=== PATIENT | male | born 1965 | race Caucasian/White ===

== ENCOUNTER 2018-02-02 09:08 | Outpatient (CLI) | payer MEDICARE, MEDICAID, SELFPAY ==
[2018-02-02 11:14] LABS: Cholesterol 194 mg/dL (50-200); HDL Cholesterol 29 mg/dL (40-60); LDL CHOLESTEROL 136 mg/dL (<100); Triglyceride 165 mg/dL (30-150)
== END 2018-02-02 09:28 ==
PROVIDERS: PCP Family Medicine; Visit Provider Family Medicine
DX: E11.65 Type 2 diabetes mellitus with hyperglycemia (principal); E78.5 Hyperlipidemia, unspecified
CPT/HCPCS: 36415; 80061; 83721; 83036

== ENCOUNTER 2019-04-18 11:43 | Outpatient (CLI) | payer MEDICARE, SELFPAY ==
[2019-04-18] MEDS: Omnipaque 350 MG/ML 50 ML BTL IJ (12:59)
[2019-04-18] MEDS: Breeza Beverage 473 ML BTL PO ×2 (13:03→13:04)
--- NOTE | 2019-04-18 14:16 | DI.CT_ITS ---
EXAM: CT ABDOMEN PELVIS W CLINICAL HISTORY: r/o diverticulitis LLQ PAIN R10.32 TECHNIQUE: Imaging Protocol: Axial computed tomography images with coronal and sagittal reformatted images were created and reviewed CONTRAST MATERIAL: Intravenous: Omnipaque 350 Contrast volume:100 mL contrast route:IV - Oral: Yes COMPARISON: LEFT HIP COMPLETE POST REDUC from 08/15/2017 FINDINGS: ABDOMEN: Lung Bases: Normal where visualized. Liver: There is hepatic steatosis. The portal, superior mesenteric and splenic veins are patent. No measurable mass. Gallbladder and biliary tract: No radiodense calculus or dilation. Pancreas: Normal density, no abnormal calcifications or inflammatory process. Spleen: Normal. Kidneys: Normal size, contour and axis. No radiodense stones or obstructive uropathy. There is a 0.8 centimeter exophytic hypodense lesion at the posterior aspect of the right kidney. It does not meet the criteria for a simple cyst. Sonography is recommended for further evaluation. Adrenal glands: No masses seen. Abdominal Aorta: Abdominal portion non-dilated. Atherosclerosis. PELVIS: Bladder: Urinary bladder is not distended. There is artifact from the patient's left hip prosthesis which obscures portions of the pelvis. Bowel: No obstruction or bowel wall thickening. Normal appendix is visualized. No evidence of acute diverticulitis. Peritoneal cavity: No ascites, collection or mesenteric inflammatory response. Bones: Post-traumatic and postsurgical changes are seen in the left hemipelvis. This includes a left total hip replacement. Degenerative changes are seen in the spine. Reproductive organs: Within normal limits. Lymph nodes: Unremarkable. Impression: 1. No evidence of an acute abdominal or pelvic process. No evidence of acute diverticulitis. 2. Exophytic hypodense lesion at the posterior aspect of the right kidney. It does not meet the crit eria for simple cyst. Ultrasound should be considered for further evaluation. 3. Hepatic steatosis. DATA REPOSITORY: All CT scans at this facility are submitted to the National Radiology Data Registry (NRDR) Dose Index Registry (DIR) with the [employer] (ACR). RADIATION OPTIMIZATION: All CT scans at this facility use at least one of these dose optimization te chniques: automated exposure control; mA and/or kV adjustment per patient size (includes targeted exa ms where dose is matched to clinical indication); or iterative reconstruction.
[2019-04-18] MEDS: Omnipaque 350 MG/ML 100 ML BTL IJ (14:28)
== END 2019-04-18 12:03 ==
PROVIDERS: PCP Family Medicine; Visit Provider Family Medicine
DX: R10.32 Left lower quadrant pain (principal); K76.0 Fatty (change of) liver, not elsewhere classified; N28.9 Disorder of kidney and ureter, unspecified
CPT/HCPCS: 74177; 82565; J3490; Q9967

== ENCOUNTER 2019-09-26 10:12 | Outpatient (CLI) | payer MEDICARE, SELFPAY ==
[2019-09-27 17:20] LABS: COVID-19 RT-PCR Result NEGATIVE (Negative)
== END 2019-09-26 10:32 ==
PROVIDERS: PCP Family Medicine; Visit Provider Family Medicine
DX: Z03.818 Encounter for observation for suspected exposure to other biological agents ruled out (principal); R06.02 Shortness of breath
CPT/HCPCS: U0003

== ENCOUNTER → 2019-10-25 03:03 | Outpatient (CLI) | payer MEDICARE, SELFPAY ==
--- NOTE | 2019-10-25 09:00 | DI.US_ITS ---
EXAM: US RENAL CLINICAL HISTORY: reassess lesion seen on CT, RT KIDNEY MASS, N28.89. TECHNIQUE: Pham scale, color and spectral Doppler were used. COMPARISON: CT CT ABDOMEN PELVIS W from 04/18/2019 FINDINGS: Renal size in cm: Right: 11.4 left: 10.8 Echogenicity: Normal Hydronephrosis: No Cyst or mass: No Nephrolithiasis: No Other findings: Hepatic steatosis. Bladder:Not well evaluated due to low prevoid volume. Prevoid vol: 20 cc Postvoid vol:Not obtained Prostate not visualized. IMPRESSION: Limited exam secondary to the patient's body habitus. No cyst or mass is visible. The lesion was n ot well characterized on the previous CT due to small the small size. MRI could be considered for f urther evaluation. DATA REPOSITORY:
== END ==
PROVIDERS: PCP Family Medicine; Visit Provider Family Medicine
DX: N28.89 Other specified disorders of kidney and ureter (principal); K76.0 Fatty (change of) liver, not elsewhere classified
CPT/HCPCS: 76770

== ENCOUNTER 2020-01-29 10:58 | Outpatient (CLI) | payer MEDICARE, SELFPAY ==
[2020-01-29 12:52] LABS: CREATININE 1.01 mg/dL (0.70-1.30); Calculated LDL 145 mg/dL (<100); Cholesterol 214 mg/dL (<200); HDL Cholesterol 29 mg/dL (40-60); Potassium 3.8 mmol/L (3.5-5.1); Triglyceride 200 mg/dL (<150)
[2020-01-29 12:59] LABS: Hemoglobin A1C 8.5 % (<5.7)
== END 2020-01-29 11:18 ==
PROVIDERS: PCP Family Medicine; Visit Provider Family Medicine
DX: I10 Essential (primary) hypertension (principal); E78.5 Hyperlipidemia, unspecified; R73.9 Hyperglycemia, unspecified
CPT/HCPCS: 36415; 80061; 82565; 83036; 84132

== ENCOUNTER → 2020-05-22 01:33 | Outpatient (CLI) | payer MEDICARE, SELFPAY ==
--- NOTE | 2020-05-22 07:30 | DI.RAD_ITS ---
EXAM: XR HIP LT COMPLETE AP PELVIS CLINICAL HISTORY: pain in left hip,PROSTHETIC HIP PLACED 2005,M25.552 TECHNIQUE: COMPARISON: CR LEFT HIP COMPLETE POST REDUC from 08/15/2017 FINDINGS: Three views were obtained. Previously described hip prosthesis with plate and screw fixation of the acetabular region again noted, very prominent heterotopic bone formation again noted, grossly unchang ed from August 2017. There is lucency surrounded the proximal half of the femoral component of the hi p prosthesis, also stable since 2018. No gross loosening of the distal portion of the femoral compon ent seen at this time. IMPRESSION: Stable appearance of left hip prosthesis, left pelvic fixation, and prominent heterotopic bone format ion since prior examination of 2017. RADIATION DOSE DELIVERED: Total DLP
== END ==
PROVIDERS: PCP Family Medicine; Visit Provider Family Medicine
DX: M25.552 Pain in left hip (principal); Z96.642 Presence of left artificial hip joint
CPT/HCPCS: 73502

== ENCOUNTER 2021-02-27 12:19 | Inpatient (IN) | payer MEDICARE, SELFPAY ==
[2021-02-27] VITALS (16 sets, daily range): BP systolic 152–189; BP diastolic 58–92; PULSE 73–89; RESP 18–26; TEMP 36.5–37; O2SAT 92–96
--- NOTE | 2021-02-27 | DI.MRI_ITS ---
Exam(s) MR ANGIO NECK WO EXAM: MR ANGIO NECK WO CLINICAL HISTORY: facial droop, dysarthria TECHNIQUE: 2D and 3D [id number] studies was performed. COMPARISON: No exams were available for comparison FINDINGS: There is no evidence of occlusion or dissection of the carotid or vertebral arteries. There is mild narrowing at the proximal internal carotid arteries bilaterally without significant rahul nosis. IMPRESSION: No significant stenosis. No evidence of dissection. DATA REPOSITORY:
--- NOTE | 2021-02-27 12:15 | RT.EKG_ITS ---
APPROVED REPORT Exam: Resting ECG Reason for Exam: cva Patient Location: E HR:89 bpm ECG Measurements Heart Rate 89 AXIS AR 168 P 77 QRSd 84 QRS 68 QT 353 T 55 QTc 431 Conclusion Sinus rhythm. Anteroseptal Q >35mS, T neg, V1-V2
--- NOTE | 2021-02-27 12:30 | DI.RAD_ITS ---
Exam(s) XR CHEST 2V PA LATERAL EXAM: XR CHEST 2V PA LATERAL CLINICAL HISTORY: Slurred speech TECHNIQUE: 2D digital imaging was performed of the chest. Two images were obtained. PA and lateral views were obtained. COMPARISON: No exams were available for comparison FINDINGS: MEDIASTINUM: Normal. HEART: Normal. PULMONARY VASCULATURE: Normal. LUNGS: Clear. PLEURAL SPACE: No pleural effusion or pneumothorax. BONE:Within normal limits for the patient's age. OTHER FINDINGS:Normal. IMPRESSION: No acute pulmonary findings. DATA REPOSITORY: RADIATION DOSE DELIVERED:
--- NOTE | 2021-02-27 12:41 | W.ED.GENAD ---
Discharge Plan Disposition Patient Disposition: [facility] INPATIENT Condition: Stable Discharge Details Clinical Impression: Acute CVA (cerebrovascular accident) Primary Care Provider: Bradley Carmichael ED Provider: Kenneth Guerra Home Meds and New Rx's Prescriptions: No Action naproxen 500 mg tablet 500 mg PO Q12H PRN Qty: 60 RF: 2 lisinopril-hydrochlorothiazide 20-12.5 mg tablet 1 tab PO DAILY Qty: 90 RF: 3 colchicine 0.6 mg tablet 0.6 mg PO BID Qty: 30 RF: 0 lisinopril 20 mg tablet 20 mg PO DAILY Qty: 90 RF: 3 acetaminophen 325 MG tablet 325 mg PO Q6H PRN RF: 0 (DME) lancets [QualtréTouch Delica Lancets] 33 gauge misc See Rx Instructions .ROUTE .MEDSUPPLY Qty: 100 RF: 3 (DME) blood-glucose meter [IntelligentMuch Verio Flex meter] Misc See Rx Instructions .ROUTE .MEDSUPPLY Qty: 1 RF: 0 (DME) OneTouch Verio test strips Strip See Rx Instructions .ROUTE .MEDSUPPLY Qty: 100 RF: 3 omeprazole 40 mg capsule,delayed release(DR/EC) 40 mg PO DAILY PRN (Reason: dyspepsia) Qty: 90 RF: 3 levalbuterol tartrate 45 mcg/actuation HFA aerosol inhaler 2 inh IH Q6H PRN (Reason: shortness of breath) Qty: 15 RF: 3 oxycodone 5 mg tablet 5 - 10 mg PO HS MDD 2 tabs PRN (Reason: pain) Qty: 60 RF: 0 Medical Decision Making 55-year-old male diabetic smoker presents from home with complaint of slurred speech, feeling some drooling oral drinking liquids, and feeling unsteady on his feet since Tuesday. He was initially reluctant to be evaluated in the ER and went from primary care clinic to home with his significant other who convinced him to report to the ER with her for evaluation. Patient arrives here with blood pressure 173/86, pulse 89, oxygenating normally. He does have a very discrete left facial droop and discretely slurred speech. Given his risk factors I am concerned for a CVA. Must exclude intracranial mass or hemorrhage. 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 Laboratories including troponin are reassuring. CT scan of the head and chest x-ray unremarkable for acute process. There is note of few areas of decreased attenuation in the white matter reflecting chronic microvascular ischemic disease and old bilateral lacunar infarcts present. Recommended admission for the patient for further work-up. HPI General Mode of arrival: ambulatory. Date/Time Provider Initiated Documentation: 02/27/21 12:26. Limitations to Documentation: no limitations. Information obtained by: patient. History of Present Illness 55 year old M presents to the emergency department with the chief complaint of Left face numbness, slurred speech since Tuesday, described as moderate, Quality is described as constant, and is localized to the face and mouth. Patient reports no radiation. Patient started experiencing this day(s) and it has been constant. No relieving factors improve symptom(s), No exacerbating factors reported . Patient notes other ([place] unsteady on his feet, no falls, no clumsiness or weakness of the arms or legs). Patient did receive the following treatments prior to arrival, none Related Data Home Medications Medication Instructions Recorded Confirmed acetaminophen 325 mg PO Q6H PRN tab-cap 11/25/14 02/27/21 naproxen 500 mg tablet 500 mg PO Q12H PRN #60 tab-cap 10/31/19 02/27/21 blood sugar diagnostic #100 each 11/05/19 02/27/21 blood-glucose meter #1 each 11/05/19 02/27/21 lancets 33 gauge #100 each 11/05/19 02/27/21 lisinopril 20 mg tablet 20 mg PO DAILY #90 tab 01/29/20 02/27/21 omeprazole 40 mg capsule,delayed 40 mg PO DAILY PRN #90 tab-cap 04/25/20 02/27/21 release levalbuterol tartrate 45 2 inh IH Q6H PRN #15 gm 10/17/20 02/27/21 mcg/actuation aerosol inhaler lisinopril 20 1 tab PO DAILY #90 tab-cap 01/14/21 02/27/21 mg-hydrochlorothiazide 12.5 mg tablet colchicine 0.6 mg tablet 0.6 mg PO BID #30 tab 01/22/21 02/27/21 oxycodone 5 mg tablet 5 - 10 mg PO HS PRN #60 tab MDD 2 02/12/21 02/27/21 tabs Previous Rx's Medication Instructions Recorded naproxen 500 mg tablet 500 mg PO Q12H PRN #60 tab-cap 10/31/19 blood sugar diagnostic #100 each 11/05/19 blood-glucose meter #1 each 11/05/19 lancets 33 gauge #100 each 11/05/19 lisinopril 20 mg tablet 20 mg PO DAILY #90 tab 01/29/20 omeprazole 40 mg capsule,delayed 40 mg PO DAILY PRN #90 tab-cap 04/25/20 release levalbuterol tartrate 45 2 inh IH Q6H PRN #15 gm 10/17/20 mcg/actuation aerosol inhaler lisinopril 20 1 tab PO DAILY #90 tab-cap 01/14/21 mg-hydrochlorothiazide 12.5 mg tablet colchicine 0.6 mg tablet 0.6 mg PO BID #30 tab 01/22/21 oxycodone 5 mg tablet 5 - 10 mg PO HS PRN #60 tab MDD 2 02/12/21 tabs Allergies Allergy/AdvReac Type Severity Reaction Status Date / Time Penicillins Allergy Unknown Verified 02/27/21 12:28 fentanyl AdvReac Severe Nausea Verified 02/27/21 12:28 General Stated Complaint: CVA/TIA CHIN: 2 Review of Systems Narrative: Denies headache, recent illness, fall or injury. 8 systems reviewed and otherwise negative. [facility] Medical History Non-compliance Surgical History Fracture, Open [place] [facility] [place] H[place] REDUCTION AND ORIF L FEMUR FX Open Carpal Tunnel release b/l shoulder repair left Family History Mother No problems noted. Father Diabetes Essential hypertension Heart disease Hyperlipidemia Stroke Cancer Sister Asthma Maternal Grandfather Alcohol abuse Depression Paternal Grandfather , 90 No problems noted. Maternal Grandmother , 96 Asthma Diabetes Heart disease Paternal Grandmother , 78 Diabetes Essential hypertension Stroke Daughter Substance abuse Essential hypertension Depression Social History Smoking/Tobacco Use Status: Current every day Tobacco: How many years used: 40 Quit status: considering quitting Smoking risk assessment performed?: Yes Alcohol Intake: current Alcohol Intake frequency: holidays/special occasions only Alcohol type: beer Drug use: Daily Substance use type: marijuana Caregiver/Support person: No Household members: significant other Housing: other Details: mobile home Communication Needs: None Pets and animals: Yes Pets and animals: dog(s) Sexually active: Yes Do you think of yourself as: straight/heterosexual Current gender identity: male What is your relationship status?: living with partner How often do you talk on the phone with friends or family?: three or more times per week How often do you get together with friends or relatives?: once per week How often do you attend mandaeism or protestant services?: decline to answer Do you belong to any clubs or organized social groups?: decline to answer Panel score (0-1 are the most socially isolated patients): 2 What type of physical activity do you participate in: decline to answer Duration: < 15 minutes/day Geovanna/Hindu: None Special geovanna needs: No Seatbelt use: always Helmet use: Yes Helmet use: sometimes 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 Pleasant, well groomed, interactive. HEAD: Normocephalic, atraumatic ENT: Mucous membranes moist, oropharynx unremarkable, External ear exam unremarkable EYES: PERRL, EOMI NECK: Full ROM, no MIKE, no menigismus CHEST/RESP: Nontender, clear to auscultation bilateral, no wheeze/rhonchi/rales CARDIOVASCULAR: RRR, no murmur, rub radha. 2+ Rad pulse bilateral ABDOMEN: Soft, nontender, no mass. +Bowel sounds EXT: Full ROM, no edema, no rash Neuro: Speech very slightly slurred. Discrete left facial droop, normal oalllb-lm-tban, normal motor throughout, conversant, interactive. Psych: Speech fluent, thoughts congruent, affect normal Course Vital Signs Vital signs: Vital Signs Temperature 37.0 C 02/27/21 12:26 Pulse 89 02/27/21 12:26 Respiratory Rate 22 02/27/21 12:26 Blood Pressure 173/86 H 02/27/21 12:26 Pulse Oximetry 96 02/27/21 12:26 Temperature 37.0 C 02/27/21 12:26 Temperature Source Temporal Artery Scan 02/27/21 12:26 Pulse 89 02/27/21 12:26 Respiratory Rate 22 02/27/21 12:26 Blood Pressure 173/86 H 02/27/21 12:26 Blood Pressure Position Sitting 02/27/21 12:26 Pulse Oximetry 96 02/27/21 12:26 Oxygen Delivery Method Room Air 02/27/21 12:26 Oxygen Flow Rate 0 02/27/21 12:26 Pain Level 0 02/27/21 12:26
[2021-02-27 12:51] LABS: Abs Immature Grans 0.03 10^3/uL (0.0-0.06); Absolute Basophil Count 0.06 10^3/uL (0.0-0.2); Absolute Eosinophil Count 0.02 10^3/uL (0.0-0.7); Absolute Monocyte Count 0.59 10^3/uL (0.1-0.8); Absolute Neutrophil Count 7.26 10^3/uL (1.2-6.7); Basophils % 0.5; Eosinophils % 0.2; HCT 47.5 % (40.0-50.0); HGB 15.6 g/dL (13.5-17.5); Immature Grans % 0.3; Lymphocytes % 28.5; MCHC 32.8 % (32.0-36.0); MCV 91.3 fL (80-95); Monocytes % 5.3; Neutrophils % 65.2; Nucleated RBC 0 %; Platelet Count 251 10^3/uL (130-400); RDW 13.4 % (11.8-14.1); RDW-SD 45.8 fL; WBC 11.14 10^3/uL (4.4-10.8)
[2021-02-27 12:53] LABS: Absolute Lymphocyte Count 3.17 10^3/uL (1.2-3.4)
--- NOTE | 2021-02-27 13:00 | DI.CT_ITS ---
Exam(s) CT HEAD - STROKE PROTOCOL EXAM: CT HEAD - STROKE PROTOCOL CLINICAL HISTORY: L face numb, slurred speech. TECHNIQUE: Imaging Protocol: Axial computed tomography images with coronal and sagittal reformatted images were created and reviewed COMPARISON: CT FACIAL WITH CONTRAST from 05/31/2017 CT NECK WITH CONTRAST from 05/31/2017 CT NECK WITH CONTRAST from 05/31/2017 FINDINGS: Ventricles and Extra axial spaces: Normal in size and morphology for the patient's age. Hemorrhage: None. Cerebral parenchyma: There are few areas of decreased attenuation in the white matter which reflect c hronic microvascular ischemic disease. There are old bilateral lacunar infarcts present. No definit e acute territorial infarct is seen. Midline shift: None. Brainstem/Cerebellum: Normal. Calvarium: Normal. Visualized Paranasal sinuses/Mastoids: Clear. Soft Tissues: Unremarkable. IMPRESSION: 1. No acute intracranial process. 2. If symptoms persist a follow-up with an MRI is recommended. 3. Results of this exam have been verbally communicated with provider. RADIATION DOSE DELIVERED: 800.09mGy.cm Total DLP DATA REPOSITORY: All CT scans at this facility are submitted to the National Radiology Data Registry (NRDR) Dose Index Registry (DIR) with the [employer] (ACR). RADIATION OPTIMIZATION: All CT scans at this facility use at least one of these dose optimization te chniques: automated exposure control; mA and/or kV adjustment per patient size (includes targeted exa ms where dose is matched to clinical indication); or iterative reconstruction.
[2021-02-27 13:08] LABS: ALT 19 U/L (16-63); AST 9 U/L (15-37); Albumin 3.6 g/dL (3.4-5.0); Alkaline Phosphatase 99 U/L (46-116); Anion Gap 8.4 mmol/L (3-11); BUN 14 mg/dL (7-18); Bilirubin, Total 0.3 mg/dL (0.2-1.0); CO2 31.6 mmol/L (21.0-32.0); CREATININE 1.1 mg/dL (0.70-1.30); Calcium 9.1 mg/dL (8.5-10.1); Chloride 98 mmol/L (98-107); Glucose 345 mg/dL (74-106); Magnesium 1.7 mg/dL (1.8-2.4); Potassium 3.9 mmol/L (3.5-5.1); Sodium 138 mmol/L (136-145); Total Protein 7.8 g/dL (6.4-8.2); Troponin I < 0.05 ng/mL (<0.06)
--- NOTE | 2021-02-27 14:23 | HPE_ITS ---
Date of service: 02/27/21 Time of Service: 14:23 Assessment and Plan Assessment and plan (1) Acute CVA (cerebrovascular accident): Status: Acute Assessment and plan: CT head w/o acute findings but + for old lacunar infarcts and microvascular disease. ASA 81mg daily. LDL on 01/29/20 was 145. Not on a statin. Begin atorvastatin 80mg nightly. Fasting lipids in the AM Echocardiogram; unofficial read was normal. Normal bubble study. Official report from [facility] [place] cardiology pending. Telemetry monitoring. Bedside swallow eval. PT/OT consulted. MRI head MRA head/neck (2) Non-compliance: Status: Acute Assessment and plan: In his history. (3) Hypertension: Status: Chronic Assessment and plan: Cont lisinopril/HCTZ. Permissive HTN Low Na diet Monitor (4) Diabetes type 2, uncontrolled: Status: Acute Assessment and plan: A1c of 10.2. On no diabetic meds. Carb controlled diet. Lantus 10units HS; adjust as necessary. SS correction insulin dosing QAC. Diabetic Educ. (5) Smoker: Status: Acute Assessment and plan: Current smoker Offer nicotine replacement. (6) GERD (gastroesophageal reflux disease): Status: Acute Assessment and plan: Cont home PPI History of Present Illness History of Present Illness Chief Complaint: Slurred speech Narrative: This is a 55 yo male with a PMH of noncompliance, DM2, HTN, obesity, chronic pain, GERD, Gout, tobacco abuse syndrome. He presented to the ED at the recommendation of his PCP who saw him on the day of admission. He c/o slurred speech, left face numbness and some mild unsteadiness on his feet. Onset of symptoms was 2 days prior to admission. No CP/palpitations. No h/o afib. CT head showed No acute intracranial process. + white matter findings consistant with chronic microvasc ular ischemic disease. + old bilateral lacunar infarcts. ASA 325mg given at his PCP office. WBC count mildly elevated. Review of Systems All systems reviewed & are unremarkable except as noted in HPI and below PFSH Medical History Non-compliance Surgical History Fracture, Open Treatment 10/30/14 [facility] [place]; ORIF L HIP REDUCTION AND ORIF L FEMUR FX Open Carpal Tunnel release b/l shoulder repair left Family History Mother No problems noted. Father Diabetes Essential hypertension Heart disease Hyperlipidemia Stroke Cancer Sister Asthma Maternal Grandfather Alcohol abuse Depression Paternal Grandfather , 90 No problems noted. Maternal Grandmother , 96 Asthma Diabetes Heart disease Paternal Grandmother , 78 Diabetes Essential hypertension Stroke Daughter Substance abuse Essential hypertension Depression Social History Smoking/Tobacco Use Status: Current every day Tobacco: How many years used: 40 Quit status: considering quitting Smoking risk assessment performed?: Yes Alcohol Intake: current Alcohol Intake frequency: holidays/special occasions only Alcohol type: beer Drug use: Daily Substance use type: marijuana Caregiver/Support person: No Household members: significant other Housing: other Details: mobile home Communication Needs: None Pets and animals: Yes Pets and animals: dog(s) Sexually active: Yes Do you think of yourself as: straight/heterosexual Current gender identity: male What is your relationship status?: living with partner How often do you talk on the phone with friends or family?: three or more times per week How often do you get together with friends or relatives?: once per week How often do you attend baptist or sabianism services?: decline to answer Do you belong to any clubs or organized social groups?: decline to answer Panel score (0-1 are the most socially isolated patients): 2 What type of physical activity do you participate in: decline to answer Duration: < 15 minutes/day Geovanna/Mosque: None Special geovanna needs: No Seatbelt use: always Helmet use: Yes Helmet use: sometimes 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 Do you feel safe in your relationship?: Yes Meds Allergies and Home Medications Allergies Allergy/AdvReac Type Severity Reaction Status Date / Time Penicillins Allergy Unknown Verified 02/27/21 12:28 fentanyl AdvReac Severe Nausea Verified 02/27/21 12:28 Home Medications Medication Instructions Recorded Confirmed Type acetaminophen 325 mg PO Q6H PRN tab-cap 11/25/14 02/27/21 History naproxen 500 mg tablet 500 mg PO Q12H PRN #60 tab-cap 10/31/19 02/27/21 Rx blood sugar diagnostic #100 each 11/05/19 02/27/21 Rx blood-glucose meter #1 each 11/05/19 02/27/21 Rx lancets 33 gauge #100 each 11/05/19 02/27/21 Rx lisinopril 20 mg tablet 20 mg PO DAILY #90 tab 01/29/20 02/27/21 Rx omeprazole 40 mg capsule,delayed 40 mg PO DAILY PRN #90 tab-cap 04/25/20 02/27/21 Rx release levalbuterol tartrate 45 2 inh IH Q6H PRN #15 gm 10/17/20 02/27/21 Rx mcg/actuation aerosol inhaler lisinopril 20 1 tab PO DAILY #90 tab-cap 01/14/21 02/27/21 Rx mg-hydrochlorothiazide 12.5 mg tablet colchicine 0.6 mg tablet 0.6 mg PO BID #30 tab 01/22/21 02/27/21 Rx oxycodone 5 mg tablet 5 - 10 mg PO HS PRN #60 tab MDD 2 02/12/21 02/27/21 Rx tabs Exam Const General: cooperative and no acute distress Nutritional Appearance: obese Orientation: alert and oriented x3 HENMT Head: normal to inspection Ears: hearing grossly normal bilaterally Eyes General: appearance normal, both eyes and all related structures Sclera: sclerae normal Pupils: PERRL Neck Neck: full ROM and no JVD Resp Effort & Inspection: normal respiratory effort Auscultation: diminished lung sounds and wheezes (faint scattered wheezes) Cardio Rate: regular rate Rhythm: regular rhythm Heart Sounds: S1 normal and S2 normal GI Inspection: obesity Palpation: soft and nontender Skin General skin exam: no rashes or lesions noted Neuro General: no focal motor deficits Cranial Nerves: no nystagmus, facial strength normal, tongue not midline (deviates to the left) and able to rotate head bilaterally Cognition: normal cognition Speech: speech normal Extrem General: no pedal edema and no calf tenderness Results Labs Result diagrams: 02/27/21 12:32 02/27/21 12:32 Labs: Laboratory Results - last 24 hr 02/27/21 02/27/21 12:32 12:32 WBC 11.14 H RBC 5.20 Hgb 15.6 Hct 47.5 MCV 91.3 MCH 30.0 MCHC 32.8 RDW 13.4 Plt Count 251 MPV 10.0 Immature Gran % 0.3 Neutrophils % 65.2 Lymphocytes % 28.5 Monocytes % 5.3 Eosinophils % 0.2 Basophils % 0.5 Nucleated RBC % 0 Absolute Neutrophils 7.26 H Absolute Lymphocytes 3.17 Absolute Monocytes 0.59 Absolute Eosinophils 0.02 Absolute Basophils 0.06 Sodium 138 Potassium 3.9 Chloride 98 Carbon Dioxide 31.6 Anion Gap 8.4 BUN 14 Creatinine 1.1 Estimated GFR/1.73 m2 >= 60.00 Glucose 345 H Calcium 9.1 Magnesium 1.7 L Total Bilirubin 0.3 AST 9 L ALT 19 Alkaline Phosphatase 99 Troponin I < 0.05 Total Protein 7.8 Albumin 3.6 Last Vital Signs Temp 37.0 C 02/27/21 12:26 Pulse 81 02/27/21 13:49 Resp 19 02/27/21 14:00 BP 171/58 H 02/27/21 13:49 Pulse Ox 93 02/27/21 14:00
[2021-02-27 14:40] LABS: Hemoglobin A1C 10.2 % (<5.7)
[2021-02-27 14:50] LABS: TSH 0.68 uIU/mL (0.36-3.74)
[2021-02-27 15:17] LABS: Source Nasal/Nares
--- NOTE | 2021-02-27 17:02 | DI.VRAD_ITS ---
PROCEDURE INFORMATION: Exam: MRA Neck Without Contrast Exam date and time: 02/27/2021 4:47 PM Age: 55 years old Clinical indication: Speech disturbance; Slurred speech TECHNIQUE: Imaging protocol: Magnetic resonance angiography of the neck without contrast. COMPARISON: CT NECK WITH CONTRAST 05/31/2017 5:47 PM FINDINGS: Right common carotid artery: No stenosis. No dissection or occlusion. Right internal carotid artery: Atherosclerotic disease in proximal right ICA with areas of stenosis. ICA lumen at the level of stenosis measures 3.2 mm .ICA lumen distally measures 4.6 mm. Right external carotid artery: No stenosis. No dissection or occlusion of the origin. Right vertebral artery: No stenosis. No dissection or occlusion. Left common carotid artery: No stenosis. No dissection or occlusion. Left internal carotid artery: Atherosclerotic disease with areas of stenosis in proximal left ICA. ICA lumen at the level of stenosis measures 3.3 mm. ICA lumen distally measures 5.2 mm. Left external carotid artery: No stenosis. No dissection or occlusion of the origin. Left vertebral artery: No stenosis. No dissection or occlusion. IMPRESSION: 1. Findings as described above in right internal carotid artery consistent with mild stenosis measuring less than 50%. 2. Findings as described above in the left internal carotid artery consistent with mild stenosis measuring less than 50%. REFERENCES: NASCET CRITERIA. The degree of internal carotid artery stenosis is based on NASCET criteria. Normal is no stenosis. Mild is less than 50% stenosis. Moderate is 50-69% stenosis. Severe is 70% to 99% stenosis. Total occlusion is no detectable patent lumen. Dictated and Authenticated by: Amy Ott MD. Ordering:ROBBIE Dejesus MD
--- NOTE | 2021-02-27 17:15 | DI.CT_ITS ---
Exam(s) CT BRAIN CTA EXAM: CT BRAIN CTA CLINICAL HISTORY: cva. TECHNIQUE: Imaging Protocol: Axial CT angiography was performed with multi-slice acquisition and mu lti-planar and/or 3D reconstructions. CONTRAST MATERIAL: Intravenous: Omnipaque 350 Contrast volume:structured data in ml Intravenous: Omnipaque 350 Contrast volume:85 ml COMPARISON: No exams were available for comparison FINDINGS: CT Head W/O: Ventricles and Extra axial spaces: Normal in size and morphology for the patient's age. Hemorrhage: None. Cerebral parenchyma: Normal. Midline shift: None. Brainstem/Cerebellum: Normal. No abnormal enhancement. Calvarium: Normal. Visualized Paranasal sinuses/Mastoids: Clear. Soft Tissues: Unremarkable. CTA Brain W: Internal Carotid Arteries: Petrous: Normal. Cavernous: Normal. Cerebral: Normal. Middle Cerebral Arteries: Right: No aneurysm, occlusion or significant stenosis. Left: No aneurysm, occlusion or significant stenosis. Anterior Cerebral Arteries: Right: No aneurysm, occlusion or significant stenosis. Left: No aneurysm, occlusion or significant stenosis. Posterior cerebral Arteries: Right: No aneurysm, occlusion or significant stenosis. Left: No aneurysm, occlusion or significant stenosis. Vertebral Arteries: Right: No aneurysm, occlusion or significant stenosis. Left: No aneurysm, occlusion or significant stenosis. Basilar Artery: No aneurysm, occlusion or significant stenosis. IMPRESSION: 1. Normal CTA examination of the [place]. 2. Unremarkable CT Head. RADIATION DOSE DELIVERED: 2,400.47mGy.cm Total DLP 2,400.47mGy.cm Total DLP 2,400.47mGy.cm Total DLP DATA REPOSITORY: All CT scans at this facility are submitted to the National Radiology Data Registry (NRDR) Dose Index Registry (DIR) with the [employer] (ACR). RADIATION OPTIMIZATION: All CT scans at this facility use at least one of these dose optimization te chniques: automated exposure control; mA and/or kV adjustment per patient size (includes targeted exa ms where dose is matched to clinical indication); or iterative reconstruction.
[2021-02-27] MEDS: Normal Saline - Diluent 50 ML VIAL IV (17:33)
[2021-02-27] MEDS: Omnipaque 350 MG/ML 100 ML BTL 85 ML IJ (17:34)
[2021-02-27] MEDS: Normal Saline Flush 10 ML SYR IVP (17:35)
[2021-02-27] MEDS: Heparin 5,000 UNITS/ML VIAL 5000 UNITS SC (17:51)
--- NOTE | 2021-02-27 17:55 | DI.VRAD_ITS ---
PROCEDURE INFORMATION: Exam: CT Angiography Head With Contrast, Arteriography Exam date and time: 02/27/2021 5:16 PM Age: 55 years old Clinical indication: Other: CVA, PT had neck angio mri but unable to do head angio mri. Brain cta instead. TECHNIQUE: Imaging protocol: Computed tomography angiography of the head with contrast. Exam focused on the arteries. 3D rendering (Not supervised by radiologist): MIP and/or 3D reconstructed images were created by the technologist. Radiation optimization: All CT scans at this facility use at least one of these dose optimization techniques: automated exposure control; mA and/or kV adjustment per patient size (includes targeted exams where dose is matched to clinical indication); or iterative reconstruction. Contrast material: OMNIPAQUE; Contrast volume: 85 ml; Contrast route: INTRAVENOUS (IV); COMPARISON: CT HEAD - STROKE PROTOCOL 02/27/2021 1:03 PM FINDINGS: ANTERIOR CIRCULATION: Right internal carotid artery: Unremarkable. Intracranial segment is patent with no significant stenosis. No aneurysm. Right middle cerebral artery: Unremarkable. No occlusion or significant stenosis. No aneurysm. Right anterior cerebral artery: Unremarkable. No occlusion or significant stenosis. No aneurysm. Left internal carotid artery: Unremarkable. Intracranial segment is patent with no significant stenosis. No aneurysm. Left middle cerebral artery: Unremarkable. No occlusion or significant stenosis. No aneurysm. Left anterior cerebral artery: Unremarkable. No occlusion or significant stenosis. No aneurysm. POSTERIOR CIRCULATION: Right vertebral artery: Unremarkable. No occlusion or significant stenosis. No aneurysm. Left vertebral artery: Unremarkable. No occlusion or significant stenosis. No aneurysm. Basilar artery: Unremarkable. No occlusion or significant stenosis. No aneurysm. Right posterior cerebral artery: Unremarkable. No occlusion or significant stenosis. No aneurysm. Left posterior cerebral artery: Unremarkable. No occlusion or significant stenosis. No aneurysm. Veins: Visualized venous sinuses are patent with no evidence of thrombosis. The superior sagittal and inferior sagittal sinuses are unremarkable. Transverse sinuses and sagittal sinuses are unremarkable. Brain: No acute intracranial hemorrhage. Pham/white matter differentiation is unremarkable. Cisterns are unremarkable. Brainstem is unremarkable. No suprasellar mass. Cerebral ventricles: No ventriculomegaly. Bones/joints: Unremarkable. No acute fracture. Soft tissues: No areas of abnormal enhancement after contrast administration. No mass lesion. No mass effect. Thalamus and hypothalamus are unremarkable. Cerebellum is unremarkable. IMPRESSION: No evidence of large vessel occlusion or significant stenosis. No evidence of pathology. Dictated and Authenticated by: Amy Ott MD. Ordering:ROBBIE Dejesus MD
--- NOTE | 2021-02-27 18:11 | NUR.NOTE ---
Nursing Note:Pt was found to be drinking a mountain dew by lab staff
[2021-02-27] MEDS: Insulin Aspart 300 UNITS/3 ML PEN SC (18:31)
[2021-02-27 18:53] LABS: Troponin I < 0.05 ng/mL (<0.06)
[2021-02-27] MEDS: oxyCODONE 10 MG TAB PO (19:27)
[2021-02-27] MEDS: Normal Saline 1,000 ML 125 ML IV (19:30)
[2021-02-27 21:17] LABS: COVID-19 PCR Negative (Negative)
[2021-02-27] MEDS: Lisinopril 20 MG TAB PO (21:26)
[2021-02-27] MEDS: hydroCHLOROthiazide 12.5 MG TAB PO (21:26)
[2021-02-27] MEDS: Omeprazole 20 MG CAPCR 40 MG PO (21:27)
[2021-02-27] MEDS: Insulin Glargine 300 UNITS/3 ML PEN 10 UNITS SC (21:27)
[2021-02-27] MEDS: Magnesium Oxide 400 MG TAB 800 MG PO (21:27)
[2021-02-28] MEDS: Heparin 5,000 UNITS/ML VIAL 5000 UNITS SC (00:10)
[2021-02-28] MEDS: Normal Saline 1,000 ML 125 ML IV (03:11)
[2021-02-28 03:16] VITALS: BP 164/78; PULSE 73; RESP 18; TEMP 36.7; O2SAT 93
[2021-02-28 07:00] VITALS: PULSE 71
[2021-02-28 07:26] LABS: Abs Immature Grans 0.02 10^3/uL (0.0-0.06); Absolute Basophil Count 0.06 10^3/uL (0.0-0.2); Absolute Eosinophil Count 0.07 10^3/uL (0.0-0.7); Absolute Lymphocyte Count 3.21 10^3/uL (1.2-3.4); Absolute Monocyte Count 0.53 10^3/uL (0.1-0.8); Basophils % 0.8; Eosinophils % 0.9; HCT 44.1 % (40.0-50.0); HGB 14.5 g/dL (13.5-17.5); Immature Grans % 0.3; Lymphocytes % 40.7; MCH 29.7 pg (27.0-33.0); MCHC 32.9 % (32.0-36.0); MCV 90.4 fL (80-95); MPV 9.9 fL (8.0-11.0); Monocytes % 6.7; Neutrophils % 50.6; Nucleated RBC 0 %; Platelet Count 231 10^3/uL (130-400); RBC 4.88 10^6/uL (4.36-5.78); RDW 13.5 % (11.8-14.1); RDW-SD 45.1 fL; WBC 7.89 10^3/uL (4.4-10.8)
[2021-02-28 07:48] LABS: Calculated LDL 123 mg/dL (<100); Cholesterol 209 mg/dL (<200); HDL Cholesterol 29 mg/dL (40-60); Magnesium 1.7 mg/dL (1.8-2.4); Triglyceride 287 mg/dL (<150)
[2021-02-28 07:49] LABS: ALT 20 U/L (16-63); AST 11 U/L (15-37); Albumin 3.2 g/dL (3.4-5.0); Alkaline Phosphatase 89 U/L (46-116); BUN 13 mg/dL (7-18); Bilirubin, Total 0.5 mg/dL (0.2-1.0); Calcium 8.5 mg/dL (8.5-10.1); Chloride 101 mmol/L (98-107); Glucose 239 mg/dL (74-106); Potassium 3.7 mmol/L (3.5-5.1); Sodium 139 mmol/L (136-145); Total Protein 6.5 g/dL (6.4-8.2)
[2021-02-28] MEDS: Aspirin E.C. 81 MG TABEC PO (08:03)
[2021-02-28] MEDS: Insulin Aspart 300 UNITS/3 ML PEN SC (08:09)
[2021-02-28 08:17] VITALS: BP 211/74; PULSE 72; RESP 20; TEMP 36.4; O2SAT 94
[2021-02-28 08:34] VITALS: BP 182/80
--- NOTE | 2021-02-28 09:24 | PT.INIE ---
Date of service: 02/28/21 Time of Service: 09:06 PT Notes Visit Reasons: Cerebrovascular accident Physical Therapy Inpatient Initial Evaluation Date: 02/28/21 Referring Doctor: Oleg Garner MD PT Orders: PT CONSULT: Eval & treat Precautions: Standard. Patient Profile/Admitting Diagnosis: Patient is a 55 yo male brought to the ER on 02/27/21 for 2 day history of slurred speech, left face numbness, and mild unsteadiness on feet. Patient reports he presented to ER to appease his girlfriend, but adamant he doesn't need to be here and ready to go home. Patient admitted with suspicion of CVA. Baseline history of pelvis injury with chronic left hip pain and has built up shoe on right. PMHX: See chart Social History/Home Situation: [address] mobile home, lives with girlfriend Equipment Owned/DME: None Subjective: Patient is agreeable to PT. Patient is sitting up in chair at time of consult and connected to telemetry. He reports ready to leave. Objective: General Observation: Slurred speech, general frustration about being in hospital Mental Status: A&O x3 Pain: Baseline pain in left hip ROM: Right Upper Extremity: Shoulder Flexion WFL. Shoulder abduction WFL. Elbow flexion WFL. Wrist flexion WFL. Opening and closing of hand WFL. Left Upper Extremity: Shoulder Flexion WFL. Shoulder abduction WFL. Elbow flexion WFL. Wrist flexion WFL. Opening and closing of hand WFL. Right Lower Extremity: Hip flexion WFL. Hip abduction WFL. Knee flexion WFL. Ankle dorsiflexion WFL. Ankle plantarflexion WFL. Left Lower Extremity: Hip flexion WFL. Hip abduction WFL. Knee flexion WFL. Ankle dorsiflexion WFL. Ankle plantarflexion WFL. Strength: Right Upper Extremity: Shoulder flexors 5/5. Shoulder abductors 5/5. Elbow flexors 5/5. Elbow extensors 5/5. [employer] strong. Left Upper Extremity: Shoulder flexors 5/5. Shoulder abductors 5/5. Elbow flexors 5/5. Elbow extensors 5/5. [employer] strong. Right Lower Extremity: Hip flexors 5/5. Hip abductors 5/5. Knee flexors 5/5. Knee extensors 5/5. Ankle dorsiflexors 5/5. Ankle plantarflexors 5/5. Left Lower Extremity: Hip flexors 5/5. Hip abductors 5/5. Knee flexors 5/5. Knee extensors 5/5. Ankle dorsiflexors 5/5. Ankle plantarflexors 5/5. Sensation: Intact as to pain and pressure on bilateral lower extremities. Bed Mobility/Transfers: Rolling: Independent Supine to sit: Independent Sit to supine: Independent Sit to stand: Independent Stand to sit: Independent Bed to chair: Independent Chair to bed: Independent Gait: Ambulated 280 feet without AD, poor heel clearance, steady without path deviation Balance: Static Sitting: Normal Dynamic Sitting: Normal Static Standing: Good Dynamic Standing: Fair Special Tests: Mobility Limitations Standardized Measure [facility] AM-PAC 6 clicks Basic Mobility Inpatient Short Form: Raw Score: 24 CMS Score: 0% Informed Consent/Education: Patient instructed in purpose of PT consult and plan of care. Assessment: Jose Antonio demonstrates independent mobility with normal upper and lower extremity. He is independent with bed mobility, sit to stand transfers, and was able to ambulate 280 feet without assisitve device. Patient has decreased heel clearance with ambulation, but no path deviation. He has no need for skilled acute care PT at this time and will be discharged from caseload. Patient is safe to return home when medically clear. Patient is assessed as a Low complexity based on the following: History: 55 year old male with impairment level findings, functional limitations, and past medical history as indicated above Examination: Demonstrable impairment in strength, balance, and mobility level with underlying impairments and functional limitations as documented above Presentation: Stable Decision Making: Low complexity Plan of Care/Treatment Plan: DISCHARGE RECOMMENDATIONS: Home TREATMENT CODE/TIME: 9:06-9:20 (14 minutes), [id number] Thank you for the opportunity to participate in the care of this patient. Manisha Roldan, PT, DPT, OCS [facility] [place], [place]
[2021-02-28 11:05] VITALS: PULSE 73
--- NOTE | 2021-02-28 11:31 | NUR.NOTE ---
Nursing Note: Patient states he is having high anxiety in his room, he has waited to long to see the doctor, he is going home. Patient declined to sign the AMA form or write on the form he refused to sign the AMA form. Patient left floor via wheelchair against medical advice
--- NOTE | 2021-02-28 11:32 | NUR.NOTE ---
reviewed care with patient - he stated that he wanted to be discharged. Doctor does not feel that he is medically ready for discharge. This was explained to the patient - also reviewed the high risk for stroke without appropriate medical care. Patient states he is not waiting any longer to see MD- explained process and the MD was still rounding on patients- he appears angry throughout interactiion- (tight facial expression/clenched fists/red face/tense posture. Reiterated the risks of leaving against medical advise up to and including /disability- reports that he does not care and left building. Nursing Note:
--- NOTE | 2021-02-28 13:03 | PDOC.CMPRO ---
- If Service Date Differs Date of service: 02/28/21 Time of Service: 13:03 Care Management Progress Note Patient left AMA before CM could speak with him.
--- NOTE | 2021-02-28 16:37 | W.PM.DS.N ---
Date of service: 02/28/21 Time of Service: 16:37 DS: Diagnosis Discharge Diagnosis (1) Acute CVA (cerebrovascular accident): Status: Acute (2) Diabetes type 2, uncontrolled: Status: Chronic (3) Non-compliance: Status: Chronic (4) Hypertension: Status: Chronic (5) Smoker: Status: Chronic (6) GERD (gastroesophageal reflux disease): Status: Chronic (7) COVID-19 ruled out by laboratory testing: Status: Ruled-out Discharge Plan Disposition Patient Disposition: AGAINST MEDICAL ADVICE Condition: Stable Discharge Details Reason For Visit: CVA Admit Date/Time: 02/27/21 14:05 Admit Provider: Oleg Garner Attending Provider: Oleg Garner Primary Care Provider: Bradley Carmichael Hospital Course Hospital Course: Mr Colunga is a 55 year old male with PMHx of NIDDM2, HTN, tobacco abuse, medication noncompliance who was a patient on [facility] hospitalist service from 03/30/21 until he left [place] on 03/31/21 for a suspected CVA, having presented slurred speech, left face numbness and unsteady gait starting 2 days prior to admission. He had a negative CT/CTA of the head. The patient did not tolerate an MRI of the brain, but did complete an MRA of the neck showing less than 50% stenosis of B internal carotid arteries. Echo showed LVEF of 57%, nml valve function, and a negative bubble study. He remained in SR on telemetry. He was initiated on aspirin and statin here, however left our facility before any prescriptions could be given. Home Meds and New Rx's Prescriptions: No Action naproxen 500 mg tablet 500 mg PO Q12H PRN Qty: 60 RF: 2 lisinopril-hydrochlorothiazide 20-12.5 mg tablet 1 tab PO DAILY Qty: 90 RF: 3 colchicine 0.6 mg tablet 0.6 mg PO BID Qty: 30 RF: 0 lisinopril 20 mg tablet 20 mg PO DAILY Qty: 90 RF: 3 acetaminophen 325 MG tablet 325 mg PO Q6H PRN RF: 0 (DME) lancets [OneTouch Delica Lancets] 33 gauge misc See Rx Instructions .ROUTE .MEDSUPPLY Qty: 100 RF: 3 (DME) blood-glucose meter [VisualeadTouch Verio Flex meter] Misc See Rx Instructions .ROUTE .MEDSUPPLY Qty: 1 RF: 0 (DME) OneTouch Verio test strips Strip See Rx Instructions .ROUTE .MEDSUPPLY Qty: 100 RF: 3 omeprazole 40 mg capsule,delayed release(DR/EC) 40 mg PO DAILY PRN (Reason: dyspepsia) Qty: 90 RF: 3 levalbuterol tartrate 45 mcg/actuation HFA aerosol inhaler 2 inh IH Q6H PRN (Reason: shortness of breath) Qty: 15 RF: 3 oxycodone 5 mg tablet 5 - 10 mg PO HS MDD 2 tabs PRN (Reason: pain) Qty: 60 RF: 0 Discharge Instructions Referrals: Bradley Carmichael MD [Primary Care Provider] - Activity:: Activity as Tolerated Equipment/Supplies:: No Equipment Needed Diet:: As Tolerated Discharge Orders Discharge Orders: Discharge Order (Routine); Ordered 02/28/21 Ordered By: Lizbeth High Discharge Data Discharge Date/Time-TO BE ENTERED AT DEPARTURE: 02/28/21 11:28 DS: Summary Time Spent with Patient providing and/or coordinating discharge services: Less than 30 minutes Status at Discharge Functional status at discharge: independent ambulation Overall status at discharge: patient is progressing back to baseline Mental Status: mental status grossly normal Speech and Movement: speech and movement normal Mood: dysthymic mood Affect: labile affect Exam Narrative Exam Narrative: Patient was not examined on the day he left AMA. Psych Mental Status: mental status grossly normal Speech and Movement: speech and movement normal Mood: dysthymic mood Affect: labile affect DS: Data Vitals/I&O Vitals and I&O: Vital Signs Temperature 36.4 C L 02/28/21 08:17 Temperature Source Tympanic 02/28/21 08:17 Pulse 73 02/28/21 11:05 Pulse Rhythm Regular 02/28/21 08:15 Pulse 81 02/27/21 14:00 Respiratory Rate 20 02/28/21 08:17 Respiratory Effort 02/28/21 08:15 Respiratory Depth Normal 02/28/21 08:15 Respiratory Pattern Normal 02/28/21 03:10 Blood Pressure 182/80 H 02/28/21 08:34 Blood Pressure Mean 84 02/27/21 13:49 Blood Pressure Position Sitting 02/27/21 12:26 Pulse Oximetry 94 10/23/21 08:17 Oxygen Delivery Method Room Air 02/28/21 08:17 Oxygen Flow Rate 0 02/28/21 08:17 Pain Level 4 02/28/21 08:17 Comment 02/28/21 08:17 Intake & Output 02/27/21 02/28/21 02/28/21 23:59 11:59 23:59 Intake Total 1625.000 / 1625.000 Balance 1625.000 / 1625.000 Weight 102.603 kg Intake: IV 1625.000 / 1625.000 Other: Voiding Methods Toilet Data Completed and Pending Completed studies during hospitalization [Text1]: CT/CTA head: 1. Normal CTA examination of the [place]. 2. Unremarkable CT Head. MRA neck; 1. Findings as described above in right internal carotid artery consistent with mild stenosis measuring less than 50%. 2. Findings as described above in the left internal carotid artery consistent with mild stenosis measuring less than 50%. CXR: No acute pulmonary findings. Echo: LVEF 57%, no wall motion abnormalities, no valvular pathology, negative bobble study (per preliminary ready) Labs on day of discharge: Labs from last 24 hours 02/28/21 02/28/21 02/28/21 07:15 07:15 07:15 WBC 7.89 RBC 4.88 Hgb 14.5 Hct 44.1 MCV 90.4 MCH 29.7 MCHC 32.9 RDW 13.5 Plt Count 231 MPV 9.9 Immature Gran % 0.3 Neutrophils % 50.6 Lymphocytes % 40.7 Monocytes % 6.7 Eosinophils % 0.9 Basophils % 0.8 Nucleated RBC % 0 Absolute Neutrophils 4.00 Absolute Lymphocytes 3.21 Absolute Monocytes 0.53 Absolute Eosinophils 0.07 Absolute Basophils 0.06 Sodium 139 Potassium 3.7 Chloride 101 Carbon Dioxide 30.0 Anion Gap 8.0 BUN 13 Creatinine 1.0 Estimated GFR/1.73 m2 >= 60.00 Glucose 239 H D Calcium 8.5 Magnesium 1.7 L Total Bilirubin 0.5 AST 11 L ALT 20 Alkaline Phosphatase 89 Troponin I Total Protein 6.5 Albumin 3.2 L Triglycerides 287 H Total Cholesterol 209 H LDL Cholesterol, Calc 123 H HDL Cholesterol 29 L SARS-CoV-2 (PCR) 02/27/21 02/27/21 18:05 15:15 WBC RBC Hgb Hct MCV MCH MCHC RDW Plt Count MPV Immature Gran % Neutrophils % Lymphocytes % Monocytes % Eosinophils % Basophils % Nucleated RBC % Absolute Neutrophils Absolute Lymphocytes Absolute Monocytes Absolute Eosinophils Absolute Basophils Sodium Potassium Chloride Carbon Dioxide Anion Gap BUN Creatinine Estimated GFR/1.73 m2 Glucose Calcium Magnesium Total Bilirubin AST ALT Alkaline Phosphatase Troponin I < 0.05 Total Protein Albumin Triglycerides Total Cholesterol LDL Cholesterol, Calc HDL Cholesterol SARS-CoV-2 (PCR) Negative COUNTS INCLUDE 234 BEDS AT [facility] Medical History Chronic pain (09/15/16) Diabetes type 2, uncontrolled (02/24/15) GERD (gastroesophageal reflux disease) (11/25/14) Gout (04/19/14) Non-compliance Obesity he needs to quit drinking soda Smoker (06/05/13) Surgical History Fracture, Open Treatment 10/30/14 [facility] – [place]; ORIF L HIP REDUCTION AND ORIF L FEMUR FX Open Carpal Tunnel release b/l shoulder repair left Family History Mother No problems noted. Father Diabetes Essential hypertension Heart disease Hyperlipidemia Stroke Cancer Sister Asthma Maternal Grandfather Alcohol abuse Depression Paternal Grandfather , 90 No problems noted. Maternal Grandmother , 96 Asthma Diabetes Heart disease Paternal Grandmother , 78 Diabetes Essential hypertension Stroke Daughter Substance abuse Essential hypertension Depression Social History Smoking/Tobacco Use Status: Current every day Tobacco: How many years used: 40 Quit status: considering quitting Smoking risk assessment performed?: Yes Alcohol Intake: current Alcohol Intake frequency: holidays/special occasions only Alcohol type: beer Drug use: Daily Substance use type: marijuana Caregiver/Support person: No Household members: significant other Housing: other Details: mobile home Communication Needs: None Pets and animals: Yes Pets and animals: dog(s) Sexually active: Yes Do you think of yourself as: straight/heterosexual Current gender identity: male What is your relationship status?: living with partner How often do you talk on the phone with friends or family?: three or more times per week How often do you get together with friends or relatives?: once per week How often do you attend quaker or buddhist services?: decline to answer Do you belong to any clubs or organized social groups?: decline to answer Panel score (0-1 are the most socially isolated patients): 2 What type of physical activity do you participate in: decline to answer Duration: < 15 minutes/day Geovanna/Jew: None Special geovanna needs: No Seatbelt use: always Helmet use: Yes Helmet use: sometimes Drive intox or ride w/intox shuttle van driver: No Do you feel safe in your relationship?: Yes
== END 2021-02-28 11:28 | disposition left against medical advice (07) | DRG 66 ==
LOC: ER 13:54 → MS 16:01
PROVIDERS: Admitting Provider Family Medicine; Emergency Provider Emergency Medicine; PCP Family Medicine; Visit Provider Family Medicine
DX: I63.9 Cerebral infarction, unspecified (principal); Z91.19 Patient's noncompliance with other medical treatment and regimen; I10 Essential (primary) hypertension; E11.65 Type 2 diabetes mellitus with hyperglycemia; Z20.822 Contact with and (suspected) exposure to COVID-19; R47.81 Slurred speech; R26.81 Unsteadiness on feet; R29.810 Facial weakness; Z86.73 Personal history of transient ischemic attack (TIA), and cerebral infarction without residual deficits; I67.9 Cerebrovascular disease, unspecified; F17.210 Nicotine dependence, cigarettes, uncomplicated; K21.9 Gastro-esophageal reflux disease without esophagitis; E66.9 Obesity, unspecified; Z68.34 Body mass index [BMI] 34.0-34.9, adult; G89.29 Other chronic pain; M10.9 Gout, unspecified
CPT/HCPCS: 36415; 36416; 70496; 70547; 80053; 80061; 82962; 87635; 93005; 97161; 99285; 70450; 71046; 83036; 83735; 84443; 84484; 85025; 93010; 93306; 99223; 99284; J1644; J3490

== ENCOUNTER 2021-07-03 13:25 | Inpatient (IN) | payer MEDICARE, SELFPAY ==
[2021-07-03] VITALS (9 sets, daily range): BP systolic 114–192; BP diastolic 64–102; PULSE 72–92; RESP 14–18; TEMP 36.3–36.7; O2SAT 93–99
--- NOTE | 2021-07-03 14:15 | DI.RAD_ITS ---
Exam(s) XR KNEE LT 3V AP,LAT,RADHA EXAM: XR KNEE LT 3V AP,LAT,RADHA CLINICAL HISTORY: LEFT KNEE, LAXITY, TWISTED. TECHNIQUE: 2D digital imaging was performed. COMPARISON: CR LEFT KNEE 3 VIEW COMPLETE from 06/09/2015 FINDINGS: There is a comminuted fracture distal femur femoral condyles with angulation. Fracture line appears to violate the intercondylar notch. Joint effusion-hemarthrosis noted. IMPRESSION: DATA REPOSITORY: RADIATION DOSE DELIVERED:
[2021-07-03] MEDS: oxyCODONE 5 mg/Acetaminophen 325 mg TAB 2 TAB PO (14:22)
--- NOTE | 2021-07-03 14:28 | NUR.NOTE ---
Nursing Note:Pt medicated for pain, wet clothes removed & warm blanket given. Pt to DI via stretcher for ordered exams, NAD.
[2021-07-03] MEDS: HYDROmorphone 2 MG/ML VIAL 1 MG IVP ×4 (15:26→20:43)
--- NOTE | 2021-07-03 15:49 | ED.GENADUL_ITS ---
Discharge Plan Disposition Patient Disposition: [facility] INPATIENT Condition: Stable Discharge Details Clinical Impression: Closed comminuted intra-articular fracture of distal end of femur Admit Date/Time: 07/03/21 20:40 Admit Provider: Dariel Graff Attending Provider: Dariel Graff Primary Care Provider: Bradley Carmichael ED Provider: Kamar Joseph Discharge Data Discharge Date/Time-TO BE ENTERED AT DEPARTURE: 07/03/21 21:48 Medical Decision Making <CARLINE Michael - Last Filed: 07/04/21 13:58> Patient has distal left femur fracture with extension into the knee joint, comminuted, angulated, neurovascularly intact, no additional injuries noted on exam Case was discussed with Dr. Graff, orthopedic surgeon at our facility and patient warrants tertiary care assessment for surgical intervention at this time Patient is otherwise stable without any additional evidence of trauma He is not anticoagulated A posterior splint was placed and high is in place, patient remains jordy rovascularly intact Mrs. Salamanca has reviewed the patient secondary to capacity, [facility] will be contacted and attempt to transfer Care transition to nurse destiny Hess pending patient disposition Medical Records Medical records reviewed: Yes I reviewed the patient's medical records. <Kamar Joseph NP - Last Filed: 07/03/21 23:38> Patient has distal left femur fracture with extension into the knee joint, comminuted, angulated, neurovascularly intact, no additional injuries noted on exam Case was discussed with Dr. Graff, orthopedic surgeon at our facility and patient warrants tertiary care assessment for surgical intervention at this time Patient is otherwise stable without any additional evidence of trauma He is not anticoagulated A posterior splint was placed and high is in place, patient remains neurovascularly intact Mrs. Salamanca has reviewed the patient secondary to capacity, [facility] will be contacted and attempt to transfer Care transition to nurse destiny Hess pending patient disposition [id number] assumed care of patient and heard back from [facility] stating that they were at capacity and would be unable to care for patient. We will plan on recontacting our orthopedists before reaching out to further facilities given no nearby tertiary care center availability. Reached out to Dr. Graff whom asked if we could discuss case with [facility] in [facility]. Both cases were discussed with transfer center or nursing kennel supervisor and their orthopedist denied the case due to capacity or available ability of supplies at that time. Given [place] [facility] reached back out to Dr. Graff for consideration of admission and potential transfer tomorrow versus stabilization and surgery Dr. Graff was willing to admit patient and requested CT scan prior to admission for further stabilization and pending OR repair HPI <CARLINE Michael - Last Filed: 07/04/21 13:58> General Date/Time Provider Initiated Documentation: 07/03/21 13:55 . HPI Narrative: This 56-year-old gentleman with history of CVA, GERD, diabetes [id number] presents status post twisting injury to his left knee claims inability to ambulate. He stepped out of his car and twisted, his left knee gave out and rotated to the side. He was unable to ambulate secondary to pain and weakness to his left knee. He denies any coagulopathy. He specifically denies any head or neck pain. He denies any sensation change to his left lower extremity. He did dip opiate analgesia dependent. Related Data Home Medications Medication Instructions Recorded Confirmed acetaminophen 325 mg tablet 325 mg PO Q6H PRN tab-cap 11/25/14 07/03/21 blood sugar diagnostic (OneTouch #100 each 11/05/19 06/03/21 Verio test strips) blood-glucose meter (OneTouch #1 each 11/05/19 06/03/21 Verio Flex meter) lancets 33 gauge (OneTouch Delica #100 each 11/05/19 06/03/21 Lancets) lisinopril 20 1 tab PO DAILY #90 tab-cap 01/14/21 07/03/21 mg-hydrochlorothiazide 12.5 mg tablet amlodipine 5 mg tablet 5 mg PO DAILY #90 tab 03/03/21 07/03/21 colchicine 0.6 mg tablet 0.6 mg PO BID PRN tab 03/03/21 07/03/21 flash glucose scanning reader #1 ea 03/03/21 06/03/21 (FreeStyle Corazon 2 Mcloud) flash glucose sensor (FreeStyle #1 ea 03/04/21 06/03/21 Corazon 2 Sensor) lisinopril 20 mg tablet 20 mg PO DAILY #90 tab 04/10/21 07/03/21 omeprazole 40 mg capsule,delayed 40 mg PO BID #180 tab-cap 04/10/21 07/03/21 release naproxen 500 mg tablet 500 mg PO Q12H PRN #60 tab-cap 05/06/21 07/03/21 empagliflozin 25 mg tablet 25 mg PO QAM #90 tab 06/03/21 07/03/21 (Jardiance) levalbuterol tartrate 45 2 inh IH Q6H PRN #15 gm 06/03/21 07/03/21 mcg/actuation aerosol inhaler oxycodone 5 mg tablet 5 - 10 mg PO HS PRN #60 tab MDD 2 07/01/21 07/03/21 tabs Previous Rx's Medication Instructions Recorded blood sugar diagnostic ([employer] Network[employer] #100 each 11/05/19 Verio test strips) blood-glucose meter ([employer] #1 each 11/05/19 Verio Flex meter) lancets 33 gauge (OneTouch Delica #100 each 11/05/19 Lancets) lisinopril 20 1 tab PO DAILY #90 tab-cap 01/14/21 mg-hydrochlorothiazide 12.5 mg tablet amlodipine 5 mg tablet 5 mg PO DAILY #90 tab 03/03/21 flash glucose scanning reader #1 ea 03/03/21 (FreeStyle Corazon 2 Mcloud) flash glucose sensor (FreeStyle #1 ea 03/04/21 Corazon 2 Sensor) lisinopril 20 mg tablet 20 mg PO DAILY #90 tab 04/10/21 omeprazole 40 mg capsule,delayed 40 mg PO BID #180 tab-cap 04/10/21 release naproxen 500 mg tablet 500 mg PO Q12H PRN #60 tab-cap 05/06/21 empagliflozin 25 mg tablet 25 mg PO QAM #90 tab 06/03/21 (Jardiance) levalbuterol tartrate 45 2 inh IH Q6H PRN #15 gm 06/03/21 mcg/actuation aerosol inhaler oxycodone 5 mg tablet 5 - 10 mg PO HS PRN #60 tab MDD 2 07/01/21 tabs Allergies Allergy/AdvReac Type Severity Reaction Status Date / Time Penicillins Allergy Unknown Verified 07/03/21 13:34 fentanyl AdvReac Severe Nausea Verified 07/03/21 13:34 General Stated Complaint: Orthopedic CHIN: 3 Review of Systems <CARLINE Michael - Last Filed: 07/04/21 13:58> All systems reviewed & are unremarkable except as noted in HPI and below PFSH <CARLINE Michael - Last Filed: 07/04/21 13:58> All Active Problems Closed comminuted intra-articular fracture of distal end of femur (Acute) Obesity (Chronic) he needs to quit drinking soda Chronic pain (Acute 09/15/16) Diabetes type 2, uncontrolled (Chronic 02/24/15) Gout (Acute 04/19/14) GERD (gastroesophageal reflux disease) (Chronic 11/25/14) Smoker (Chronic 06/05/13) Acute CVA (cerebrovascular accident) (Acute) Lffikw-yn-tjuzlgyac syndrome (Acute) Non-compliance (Chronic) Pain in left hip (Acute) BCC (basal cell carcinoma), face (Acute ~11/12/19[place] [facility] [place] Viral illness (Acute) Rule out coronavirus 19 Lesion of right [place] kidney (Acute) Skin lesion (Acute) Abdominal pain (Acute) Diabetes mellitus (Chronic) Hypertension (Chronic) Well adult (Chronic) health compromised by worsening obesity History of open reduction and internal fixation (ORIF) procedure (Acute) History of shoulder surgery (Acute) Status post carpal tunnel release (Acute) Dental abscess (Acute 05/31/17) Facial cellulitis (Acute 05/31/17) Surgical History Fracture, Open [place] 10[place]30/[place] [facility] [place] HIP REDUCTION AND ORIF L FEMUR FX Open Carpal Tunnel release b/l shoulder repair left Family History Mother No problems noted. Father Diabetes Essential hypertension Heart disease Hyperlipidemia Stroke Cancer Sister Asthma Maternal Grandfather Alcohol abuse Depression Paternal Grandfather , 90 No problems noted. Maternal Grandmother , 96 Asthma Diabetes Heart disease Paternal Grandmother , 78 Diabetes Essential hypertension Stroke Daughter Substance abuse Essential hypertension Depression Social History Smoking/Tobacco Use Status: Current every day Tobacco Type: cigarettes Tobacco: How many years used: 40 Quit status: considering quitting Smoking risk assessment performed?: Yes Alcohol Intake: current Alcohol Intake frequency: holidays/special occasions only Alcohol type: beer Drug use: Daily Substance use type: marijuana Caregiver/Support person: No Household members: significant other Housing: other Details: mobile home Communication Needs: None Pets and animals: Yes Pets and animals: dog(s) Sexually active: Yes Do you think of yourself as: straight/heterosexual Current gender identity: male What is your relationship status?: living with partner How often do you talk on the phone with friends or family?: three or more times per week How often do you get together with friends or relatives?: once per week How often do you attend caodaism or mandaeism services?: decline to answer Do you belong to any clubs or organized social groups?: decline to answer Panel score (0-1 are the most socially isolated patients): 2 What type of physical activity do you participate in: decline to answer Duration: < 15 minutes/day Geovanna/Muslim: None Special geovanna needs: No Seatbelt use: always Helmet use: Yes Helmet use: sometimes Drive intox or ride w/intox ups driver: No Do you feel safe at home: Yes Do you feel safe in your relationship?: Yes Exam <CARLINE Michael - Last Filed: 07/04/21 13:58> Const General: cooperative and no acute distress Eyes General: appearance normal, both eyes and all related structures Pupils: PERRL EOM: EOM intact bilaterally Neck Other: no midline tenderness Resp Effort & Inspection: normal respiratory effort Auscultation: clear to auscultation bilaterally Other: No visible evidence of trauma Cardio Rate: regular rate Rhythm: regular rhythm Other: distal pulses intact GI Other: No abdominal tenderness, no visible sign of trauma Neuro General: patient alert and patient oriented x3 Other: GCS 15 Extrem Other: Left knee with obvious deformity and effusion Distal pulses intact sensation intact distally No tenderness with palpation to left hip or ankle Course <CARLINE Michael - Last Filed: 07/04/21 13:58> Vital Signs Vital signs: Vital Signs Temperature 36.7 C 07/03/21 13:31 Pulse 92 H 07/03/21 13:31 Respiratory Rate 14 07/03/21 13:31 Blood Pressure 192/102 H 07/03/21 13:31 Pulse Oximetry 99 07/03/21 13:31 Temperature 36.7 C 07/03/21 15:25 Temperature Source Skin 07/03/21 15:25 Pulse 85 07/03/21 15:25 Respiratory Rate 18 07/03/21 15:25 Respiratory Effort Non-Labored 07/03/21 13:36 Blood Pressure 162/77 H 07/03/21 15:25 Blood Pressure Position Supine 07/03/21 13:31 Pulse Oximetry 96 07/03/21 15:25 Oxygen Delivery Method Room Air 07/03/21 15:25 Oxygen Flow Rate 0 07/03/21 15:25 Pain Level 8 07/03/21 15:26 Sign Out <CARLINE Michael - Last Filed: 07/04/21 13:58> Sign Out Data: Sign Out Comment: pending tertiary care acceptance for intraarticular distal femur fracture/[facility] Last updated by Tiffanie Barbosa PA at 07/03/21 16:42 PAWSS <CARLINE Michael - Last Filed: 07/04/21 13:58> Have you Been Recently Intoxicated or Drunk Within the Last 30 days?: No Have you Ever Experienced Previous Episodes of Alcohol Withdrawal?: No Have you ever Experienced Withdrawal Seizures?: No Have you ever Experienced Delirium Tremens(DT)s?: No Have you ever undergone Alcohol Rehabilitation Treatment (i.e, inpt ot outpatient treatment programs)?: No Have you ever Experienced Blackouts?: No Have you ever Combined Alcohol with other Downers within the last 90 days?: No Have you ever Combined Alcohol with any other Substance of Abuse during the last 90 days?: No Positive Blood Alcohol level on Presentation? [PCS.BAL]: No Evidence of Increased Autonomic Activity (i.e. HR>120, tremor, sweating, agitation, nausea)?: No Result: 0 <Kamar Joseph NP - Last Filed: 07/03/21 23:38> Result: 0
--- NOTE | 2021-07-03 16:10 | NUR.NOTE ---
Nursing Note: Pt reports feels ok at this time, ice in place on left knee/leg, states pain med helped but reportrs little pain if not moving, cont. to monitor.
--- NOTE | 2021-07-03 16:20 | NUR.NOTE ---
Nursing Note: Provider in to place splint to left lower extremity, pt pre-medicated w/IVP dilaudid, pt tolerated well, ice reapplied to left knee area, cont. to monitor.
[2021-07-03 16:38] LABS: Source Nasal/Nares
[2021-07-03 17:20] LABS: COVID-19 PCR Negative (Negative)
--- NOTE | 2021-07-03 18:30 | NUR.NOTE ---
Nursing Note:Provider in to speak w/pt, still awaiting acceptance/transfer availability. Pt medicated for pain. +CSMT to left foot, splint in place, cont. to monitor.
--- NOTE | 2021-07-03 19:59 | NUR.NOTE ---
Nursing Note: Pt verbalizing upset d/t to transfer/admission at this time. Pt reassured we awaiting call from orthopedics for possible admission here d/t unable to find acceptance to another facility. Pt wants to eat & smoke, provider aware, no change in assessment to LLE, splint in place, awaiting orders,continue to monitor.
--- NOTE | 2021-07-03 20:15 | DI.CT_ITS ---
Exam(s) CT LOWER EXTREMITY LT WO EXAM: CT LOWER EXTREMITY LT WO CLINICAL HISTORY: Distal femur fracture. TECHNIQUE: Imaging Protocol: Axial computed tomography images with coronal and sagittal reformatted images were created and reviewed. COMPARISON: CR XR KNEE LT 3V AP,LAT,RADHA from 07/03/2021 FINDINGS: Bones: There is a comminuted fracture involving the distal metaphysis and femoral condyles. The corin or fracture lines occur obliquely extending from the metaphysis into the femoral condyles and in the intercondylar notch. The fracture is mildly impacted. The femoral condyles are displaced posteriorl y relative to the distal femoral bony alignment is satisfactory. No cellulitic or osteomyelitic lantigua ges are identified. There is no evidence of joint space narrowing or cystic degeneration seen. No ly tic or sclerotic lesions are identified. Chondrocalcinosis is present in the femoral tibial joint. T here is a lipohemarthrosis present. There is a small amount of air seen within the joint space consi stent with an open fracture. Soft Tissues: There is generalized soft tissue swelling. IMPRESSION: Comminuted displaced open fracture involving the distal femur with extension into the joint space. A lipohemarthrosis is present. RADIATION DOSE DELIVERED: 273.13mGy.cm Total DLP 273.13mGy.cm Total DLP DATA REPOSITORY: All CT scans at this facility are submitted to the National Radiology Data Registry (NRDR) Dose Index Registry (DIR) with the [employer] (ACR). RADIATION OPTIMIZATION: All CT scans at this facility use at least one of these dose optimization te chniques: automated exposure control; mA and/or kV adjustment per patient size (includes targeted exa ms where dose is matched to clinical indication); or iterative reconstruction.
[2021-07-03] MEDS: Nicotine 21 MG/24 HR PATCH TD (20:43)
--- NOTE | 2021-07-03 20:45 | NUR.NOTE ---
Nursing Note: Pt medicated with IV dilaudid, finished eating sandwhich, cont. to monitor.
--- NOTE | 2021-07-03 21:52 | DI.VRAD_ITS ---
PROCEDURE INFORMATION: Exam: CT Left Lower Extremity Without Contrast, Knee Exam date and time: 07/03/2021 8:31 PM Age: 56 years old Clinical indication: Abnormal findings; Abnormal imaging study; Lt knee x-ray; Patient HX: Distal femur fracture; Additional info: Preop imaging TECHNIQUE: Imaging protocol: CT of the Left lower extremity without contrast was performed. Exam focused on the knee. 3D rendering (Not supervised by radiologist): MIP and/or 3D reconstructed images were created by the technologist. Radiation optimization: All CT scans at this facility use at least one of these dose optimization techniques: automated exposure control; mA and/or kV adjustment per patient size (includes targeted exams where dose is matched to clinical indication); or iterative reconstruction. COMPARISON: CR XR KNEE LT 3V AP,LAT,RADHA 07/03/2021 2:36 PM FINDINGS: Bones/joints: There is a comminuted distal femoral metadiaphyseal fracture with major fracture lines extending obliquely through the metaphysis and through the intercondylar notch. Distal fracture fragments are moderately displaced posteriorly and medially. Chondrocalcinosis suspicious for CPPD. Lipohemarthrosis. Small amount of air also seen joint space consistent with an open fracture. Mild degenerative changes incidentally noted in the partially imaged right knee Soft tissues: Regional soft tissue swelling. Quadriceps and patellar tendons appear unremarkable atherosclerotic disease.. IMPRESSION: Comminuted moderately displaced open fracture of the distal left femoral metadiaphysis with extension through the intercondylar notch into the joint space. No dislocation. CPPD. Dictated and Authenticated by: Kristal Rodriguze MD. Ordering:KEYON Galvin MD
[2021-07-03] MEDS: oxyCODONE 5 MG TAB 10 MG PO (23:43)
[2021-07-03] MEDS: Ketorolac 15 MG/ML VIAL IVP (23:43)
--- NOTE | 2021-07-04 | DI.CT_ITS ---
Exam(s) 3D RECON ON CT WORKSTATION EXAM: 3D RECON ON CT WORKSTATION CLINICAL HISTORY: Preop planning. Verbal order from Dr. Graff TECHNIQUE: 3D reconstructions of the knee COMPARISON: CR XR KNEE LT 3V AP,LAT,RADHA from 07/03/[address] LOWER EXTREMITY LT WO from 07/03/2021 FINDINGS: Comminuted intra-articular fracture of the distal femur is again noted. There is significant displac ement and angulation. Proximal tibia and fibula appear intact. No patellar fracture is seen. IMPRESSION: Comminuted intra-articular fracture of the distal femur
[2021-07-04] MEDS: Lisinopril 20 MG TAB PO ×2 (00:07→08:09)
[2021-07-04 03:43] VITALS: BP 126/62; PULSE 84; RESP 16; TEMP 37.1; O2SAT 97
[2021-07-04] MEDS: HYDROmorphone 2 MG/ML VIAL 1 MG IVP ×6 (04:27→21:55)
[2021-07-04 07:05] VITALS: BP 123/76; PULSE 72; RESP 17; TEMP 36.3; O2SAT 95
[2021-07-04] MEDS: Empaglifozin 25 MG TAB PO (08:09)
[2021-07-04] MEDS: Acetaminophen 500 MG TAB 1000 MG PO (08:09)
[2021-07-04] MEDS: Omeprazole 20 MG CAPCR 40 MG PO (08:09)
[2021-07-04] MEDS: Normal Saline Flush 10 ML SYR IVP ×9 (08:10→21:56)
[2021-07-04] MEDS: amLODIPine 5 MG TAB PO (08:10)
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
[2021-07-04 08:29] LABS: HCT 46.1 % (40.0-50.0); HGB 14.5 g/dL (13.5-17.5); MCH 29.8 pg (27.0-33.0); MCHC 31.5 % (32.0-36.0); MCV 94.9 fL (80-95); MPV 10.2 fL (8.0-11.0); Platelet Count 230 10^3/uL (130-400); RBC 4.86 10^6/uL (4.36-5.78); RDW 14.3 % (11.8-14.1); RDW-SD 49.9 fL; WBC 12.35 10^3/uL (4.4-10.8)
[2021-07-04 08:41] LABS: Anion Gap 6.7 mmol/L (3-11); BUN 21 mg/dL (7-18); CO2 31.3 mmol/L (21.0-32.0); CREATININE 1.1 mg/dL (0.70-1.30); Calcium 8.7 mg/dL (8.5-10.1); Chloride 101 mmol/L (98-107); Glucose 209 mg/dL (74-106); Sodium 139 mmol/L (136-145)
[2021-07-04 08:50] LABS: Hemoglobin A1C 8.9 % (<5.7)
[2021-07-04] MEDS: Ketorolac 15 MG/ML VIAL IVP (10:05)
[2021-07-04] MEDS: oxyCODONE 5 MG TAB 10 MG PO ×2 (10:05→13:09)
--- NOTE | 2021-07-04 10:17 | ANES.PREOP_ITS ---
General Info Date of Service Date Performed: 07/04/21 Height: 5 ft 9 in Weight: 105.4 kg Body Mass Index (BMI): 34.3 Meds Allergies and Home Medications Allergies Allergy/AdvReac Type Severity Reaction Status Date / Time Penicillins Allergy Unknown Verified 07/03/21 13:34 fentanyl AdvReac Severe Nausea Verified 07/03/21 13:34 Home Medication Medication Instructions Recorded acetaminophen 325 mg tablet 325 mg PO Q6H PRN tab-cap 11/25/14 blood sugar diagnostic (OneTouch #100 each 11/05/19 Verio test strips) blood-glucose meter (OneTouch #1 each 11/05/19 Verio Flex meter) lancets 33 gauge (OneTouch Delica #100 each 11/05/19 Lancets) lisinopril 20 1 tab PO DAILY #90 tab-cap 01/14/21 mg-hydrochlorothiazide 12.5 mg tablet amlodipine 5 mg tablet 5 mg PO DAILY #90 tab 03/03/21 colchicine 0.6 mg tablet 0.6 mg PO BID PRN tab 03/03/21 flash glucose scanning reader #1 ea 03/03/21 (FreeStyle [employer]) flash glucose sensor (FreeStyle #1 ea 03/04/21 [employer]) lisinopril 20 mg tablet 20 mg PO DAILY #90 tab 04/10/21 omeprazole 40 mg capsule,delayed 40 mg PO BID #180 tab-cap 04/10/21 release naproxen 500 mg tablet 500 mg PO Q12H PRN #60 tab-cap 05/06/21 empagliflozin 25 mg tablet 25 mg PO QAM #90 tab 06/03/21 (Jardiance) levalbuterol tartrate 45 2 inh IH Q6H PRN #15 gm 06/03/21 mcg/actuation aerosol inhaler oxycodone 5 mg tablet 5 - 10 mg PO HS PRN #60 tab MDD 2 07/01/21 tabs Current Visit Medications: Current Medications Generic Name Dose Route Start Last Admin Trade Name Freq PRN Reason Stop Dose Admin Acetaminophen 1,000 mg 07/04/21 08:30 07/04/21 08:09 Acetaminophen 500 Mg Tab PO 1,000 mg TID JAY Administration Amlodipine Besylate 5 mg 07/04/21 08:30 07/04/21 08:10 Amlodipine 5 Mg Tab PO 5 mg DAILY [facility] Administration Colchicine 0.6 mg 07/03/21 22:00 Colchicine 0.6 Mg Tab PO BID PRN Device 1 each 07/03/21 22:00 Inhaler, Assist Device MC DIRECTED [facility] Dextrose 0 gm 07/03/21 21:51 Glucose 40% Oral Solution 15 Gm/37.5 Gm Tube PO DIRECTED PRN Dextrose/Water 0 gm 07/03/21 21:51 Dextrose 50%-Water 25 Gm/50 Ml Syr IVP DIRECTED PRN Empagliflozin 25 mg 07/04/21 08:30 07/04/21 08:09 Empaglifozin 25 Mg Tab PO 25 mg QAM [facility] Administration Enoxaparin Sodium 40 mg 07/04/21 08:30 07/04/21 08:31 Enoxaparin 40 Mg/0.4 Ml Syr SC Not Given DAILY [facility] Hydrochlorothiazide 12.5 mg 07/04/21 20:00 Hydrochlorothiazide 12.5 Mg Tab PO QPM [facility] Hydromorphone HCl 1 mg 07/03/21 21:54 07/04/21 08:25 Hydromorphone 2 Mg/Ml Vial IVP 1 mg Q2H PRN Administration Ringer's Solution 1,000 mls @ 80 mls/hr 07/05/21 02:00 IV INFUSION [facility] Insulin Aspart 0 units 07/04/21 08:00 07/04/21 08:10 Insulin Aspart 300 Units/3 Ml Pen SC Not Given 0800,1200,1700 [facility] Protocol Ketorolac Tromethamine 15 mg 07/03/21 22:00 07/04/21 10:05 Ketorolac 15 Mg/Ml Vial IVP 07/08/21 21:59 15 mg Q6H [facility] Administration Levalbuterol 2 puff 07/04/21 08:15 Levalbuterol Hfa 15 Gm Inh IH Q6H PRN PRN shortness of breath Lisinopril 20 mg 07/04/21 20:00 Lisinopril 20 Mg Tab PO QPM [facility] Lisinopril 20 mg 07/04/21 08:30 07/04/21 08:09 Lisinopril 20 Mg Tab PO 20 mg DAILY [facility] Administration Omeprazole 40 mg 07/04/21 07:30 07/04/21 08:09 Omeprazole 20 Mg Capcr PO 40 mg DAILY@0730 JAY Administration Ondansetron HCl 4 mg 07/04/21 07:09 Ondansetron 4 Mg/2 Ml Vial IVP Q6H PRN PRN Oxycodone HCl 10 mg 07/03/21 21:56 07/04/21 10:05 Oxycodone 5 Mg Tab PO 10 mg Q3H PRN PRN Administration Pain Sodium Chloride 0 ml 07/04/21 01:33 07/04/21 10:06 Normal Saline Flush 10 Ml Syr IVP 10 ml PRN PRN Administration PFSH Active Problems Active Problems: Problem Status Onset Code Closed comminuted intra-articular fracture of distal end of femur S72.499A Obesity E66.9 Chronic pain 09/15/16 G89.29 Diabetes type 2, uncontrolled 02/24/15 E11.65 Gout 04/19/14 M10.9 GERD (gastroesophageal reflux disease) 11/25/14 K21.9 Smoker 06/05/13 F17.200 Acute CVA (cerebrovascular accident) I63.9 Unsnot-cs-yzmgybsog syndrome I63.9 Non-compliance Z91.19 Pain in left hip M25.552 BCC (basal cell carcinoma), face ~11/12/19 C44.310 Viral illness B34.9 Lesion of right [place] kidney N28.9 Skin lesion L98.9 Abdominal pain R10.9 Diabetes mellitus E11.9 Hypertension I10 Well adult History of open reduction and internal fixation (ORIF) procedure Z98.890 History of shoulder surgery Z98.890 Status post carpal tunnel release Z98.890 Dental abscess 05/31/17 K04.7 Facial cellulitis 05/31/17 L03.211 Surgical History Surgical History Fracture, Open Treatment 10/30/14 [facility] [place]; ORIF L HIP REDUCTION AND ORIF L FEMUR FX Open Carpal Tunnel release b/l shoulder repair left Tobacco Smoking/Tobacco Use Status: Current every day Tobacco Type: cigarettes Smoking cigarettes per day: 10 Passive smoking exposure: Yes Alcohol Alcohol Intake: current Alcohol intake frequency: holidays/special occasions only Alcohol type: beer Substance Use Substance use: Daily Substance use type: marijuana Vital Signs and Lab Results Vital Signs Most Recent Vital Signs in EMR: Most Recent Vital Signs Temp Pulse Resp BP Pulse Ox 36.3 C L 72 17 123/76 95 07/04/21 07:05 07/04/21 07:05 07/04/21 07:05 07/04/21 07:05 07/04/21 07:05 Point of Care Results Point of Care Results: Finger Stick Blood Glucose 225 07/04/21 08:10 Lab Results Result Diagrams: 07/04/21 08:15 07/04/21 08:15 Blood Type / Crossmatch: Patient ABO/Rh A Negative 07/04/21 Antibody Screen NEGATIVE 07/04/21 Complete Blood Count: White Blood Count 12.35 10^3/uL (4.4-10.8) H 07/04/21 08:15 07/04/21 Red Blood Count 4.86 10^6/uL (4.36-5.78) 07/04/21 08:15 07/04/21 Hemoglobin 14.5 g/dL (13.5-17.5) 07/04/21 08:15 07/04/21 Hematocrit 46.1 % (40.0-50.0) 07/04/21 08:15 07/04/21 Platelet Count 230 10^3/uL (130-400) 07/04/21 08:15 07/04/21 Complete Metabolic Panel: Sodium Level 139 mmol/L (136-145) 07/04/21 08:15 07/04/21 Potassium Level 4.0 mmol/L (3.5-5.1) 07/04/21 08:15 07/04/21 Chloride Level 101 mmol/L (98-107) 07/04/21 08:15 07/04/21 Carbon Dioxide Level 31.3 mmol/L (21.0-32.0) 07/04/21 08:15 07/04/21 Blood Urea Nitrogen 21 mg/dL (7-18) H 07/04/21 08:15 07/04/21 Creatinine 1.1 mg/dL (0.70-1.30) 07/04/21 08:15 07/04/21 Estimated GFR/1.73 m2 >= 60.00 (mL/min/1.73m2) 07/04/21 08:15 07/04/21 Calcium Level 8.7 mg/dL (8.5-10.1) 07/04/21 08:15 07/04/21 Glucose Level 209 mg/dL (74-106) H 07/04/21 08:15 07/04/21 Hemoglobin A1c 8.9 % (<5.7) H 07/04/21 08:15 07/04/21 Liver Function Panel: No Data to Display Coagulation Panel: No Data to Display Cardiac Panel: No Data to Display Arterial Blood Gas: No Data to Display Venous Blood Gas: No Data to Display Pancreas Panel: No Data to Display Thyroid Panel: No Data to Display Infectious Disease: Coronavirus (COVID-19)(PCR) Negative (Negative) 07/03/21 16:33 07/03/21 Coronavirus 2019 Source Nasal/Nares 07/03/21 16:33 07/03/21 Blood Cultures: No Data to Display Toxicology Panel: No Data to Display Imaging and Studies Imaging and Studies Study information below may be from another EMR and interpreted by another provider. Please see original notes in EMR for more complete details. EKG Summary: 02/26: sinus, anteroseptal q Echocardiogram Summary: 02/2021: LVEF 57%, no valve issues. Anesthesia Assessment and Plan Anesthesia History Personal History: No History of Anesthesia Complications Family History: No Family History of Anesthesia Complications Exercise Tolerance Exercise Tolerance: Metabolic Equivalents>4 Cardiac & Pulmonary Exam Cardiac Exam: Normal S1/S2 Heart Sounds Pulmonary Exam: Clear Bilateral Breath Sounds Implantable Cardiac Device Does patient have a Pacemaker or an ICD?: No Airway Exam Known Difficult Airway: No Mallampati Class: 4 Mouth Opening: Narrow (< 3cm) Thyromental Distance: Less than 3 cm Neck Range of Motion: Limited ROM Neck Circumference: Thick Teeth Condition: Edentulous ASA Classification ASA Score: ASA 3 Emergency Case?: No NPO Status NPO Status: NPO Clears >2 hours, Solids >8 hours Anesthesia Plan Resuscitation Status: Full Code Anesthesia Technique: General Anesthesia Airway Planned: Endotracheal Tube Monitors Used: Standard Monitors Preoperative Comments:: 56 yo male who fell/twisted his leg and has a distal femur fracture. Sig PMHx: DM2 (poorly controlled, A1c 8.9%), HTN (HCTZ/lisinopril), ? CVA 02/2021 (slurred speech, unsteady gate, left face numbness MRA neck mild stenosis, he left AMA from this hospitalization. states that he has no residual and it was a mini stroke/TIA), chronic pain, GERD (omeprazole). Currently inpt, receiving, hydromorphone and ketorolac for pain. Previous Anes: 2 person mask ventilation, glide 4 grade 1.
[2021-07-04 10:27] VITALS: BMI 34.3
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
[2021-07-04] MEDS: Ondansetron 4 MG/2 ML VIAL IVP ×2 (12:09→17:42)
[2021-07-04 13:03] LABS: Lab Add On Test DONE
[2021-07-04 13:25] LABS: Albumin 3.5 g/dL (3.4-5.0); TSH 1.17 uIU/mL (0.36-3.74)
[2021-07-04 16:40] VITALS: BP 113/70; PULSE 71; RESP 18; TEMP 37.1; O2SAT 93
[2021-07-04 23:32] VITALS: BP 117/71; PULSE 82; RESP 18; TEMP 37.4; O2SAT 93
[2021-07-05] VITALS (16 sets, daily range): BP systolic 97–150; BP diastolic 42–78; PULSE 74–84; RESP 14–18; TEMP 36–37.3; O2SAT 92–100
--- NOTE | 2021-07-05 | DI.RAD_ITS ---
Exam(s) XR FEMUR LT EXAM: XR FEMUR LT CLINICAL HISTORY: s/p ORIF L distal femur frx. TECHNIQUE: 2D digital imaging was performed. COMPARISON: XA XR FEMUR LT from 07/05/2021 FINDINGS: The proximal femur was not included as requested by the ordering physician. BONES: Side plates and screws are now seen transfixing the distal humeral fracture femoral fracture. The distal femoral fracture has been reduced and alignment is near anatomic. The distal aspect of a left hip prosthesis is seen. JOINTS: The joint spaces are well maintained. Chondrocalcinosis is present. SOFT TISSUE: Postsurgical changes are seen in the soft tissues. IMPRESSION: Status post reduction and internal fixation of the distal left femoral fracture. DATA REPOSITORY: RADIATION DOSE DELIVERED:
[2021-07-05] MEDS: HYDROmorphone 2 MG/ML VIAL 1 MG IVP ×5 (00:17→23:27)
[2021-07-05] MEDS: Normal Saline Flush 10 ML SYR IVP ×4 (00:18→15:37)
[2021-07-05] MEDS: Lactated Ringers 1,000 ML 80 ML IV (01:45)
--- NOTE | 2021-07-05 07:15 | DI.RAD_ITS ---
Exam(s) XR FEMUR LT EXAM: XR FEMUR LT CLINICAL HISTORY: LEFT DISTAL FEMUR FRACTURE TECHNIQUE: 2D and realtime digital imaging was performed. CONTRAST MATERIAL: Refer to procedure report. COMPARISON: CR XR KNEE LT 3V AP,LAT,RADHA from 07/03/2021 FINDINGS: Fluoroscopy was provided for Dr. Graff during the performance of a reduction and internal fixatio n of the distal femoral fracture. Please refer to the procedure report for complete details. Ka,r=6.1957 mGy IMPRESSION: RADIATION DOSE DELIVERED:
[2021-07-05] MEDS: amLODIPine 5 MG TAB PO (07:47)
--- NOTE | 2021-07-05 08:19 | W.PM.PROGNOT ---
Date of Service Date of service: 07/05/21 Time of Service: 07:00 Assessment and Plan Assessment and plan (1) Closed comminuted intra-articular fracture of distal end of femur: Status: Acute Assessment and plan: Brown is a 56-year-old male with a left comminuted, fracture of the distal femur. I previously discussed treatment options with him yesterday and recommended operative fixation. I once again expressed the technical challenges with this fracture given its far distal nature and the poor apparent quality of his bone. I am worried about the ability to obtain stable fixation but I will use all tools necessary to gain the most fixation as possible. It is also likely that we will have to extend this plate up to the proximal aspect of the femur to overlap the tip of his revision hip. He will likely be nonweightbearing on this left leg following the surgery given the comminution at the level of the joint and in the metaphysis. I was very honest with her that loss of reduction and malunion is my greatest concern with this injury. There is also risk of blood loss and infection in addition to nonunion, hardware prominence, hardware failure, blood clot. This injury will also likely result in worsening arthritis which he already has some of in addition to his pseudogout as seen on x-rays. All of his questions were answered. He elects to proceed with the surgery this morning to his left femur. Subjective Subjective Interval history since last seen: Brown had some nausea yesterday with some vomiting. He has had pain but has been controlled with the medications. No other acute changes. He is n.p.o. and ready for surgery today. Exam Narrative Exam Narrative: Resting in the hospital bed. Left leg is externally rotated and flexed at the knee. No significant change to the skin. No ecchymosis. Notable swelling to the distal thigh and around the left knee. Objective Last Vital Signs Temp 37.3 C 07/05/21 07:24 Pulse 79 07/05/21 07:24 Resp 18 07/05/21 07:24 BP 150/73 H 07/05/21 07:24 Pulse Ox 92 07/05/21 07:24 Laboratory Results - last 24 hr 07/04/21 07/04/21 07/04/21 08:15 08:15 08:15 WBC 12.35 H RBC 4.86 Hgb 14.5 Hct 46.1 MCV 94.9 MCH 29.8 MCHC 31.5 L RDW 14.3 H Plt Count 230 MPV 10.2 Sodium 139 Potassium 4.0 Chloride 101 Carbon Dioxide 31.3 Anion Gap 6.7 BUN 21 H Creatinine 1.1 Estimated GFR/1.73 m2 >= 60.00 Glucose 209 H Hemoglobin A1c 8.9 H Calcium 8.7 Albumin TSH Add-On Test Request Patient ABO/Rh Antibody Screen 07/04/21 07/04/21 07/04/21 08:15 08:15 Unknown WBC RBC Hgb Hct MCV MCH MCHC RDW Plt Count MPV Sodium Potassium Chloride Carbon Dioxide Anion Gap BUN Creatinine Estimated GFR/1.73 m2 Glucose Hemoglobin A1c Calcium Albumin 3.5 TSH 1.17 Add-On Test Request DONE Patient ABO/Rh A Negative Antibody Screen NEGATIVE PAWSS Have you Been Recently Intoxicated or Drunk Within the Last 30 days?: No Have you Ever Experienced Previous Episodes of Alcohol Withdrawal?: No Have you ever Experienced Withdrawal Seizures?: No Have you ever Experienced Delirium Tremens(DT)s?: No Have you ever undergone Alcohol Rehabilitation Treatment (i.e, inpt ot outpatient treatment programs)?: No Have you ever Experienced Blackouts?: No Have you ever Combined Alcohol with other Downers within the last 90 days?: No Have you ever Combined Alcohol with any other Substance of Abuse during the last 90 days?: No Positive Blood Alcohol level on Presentation? [PCS.BAL]: No Evidence of Increased Autonomic Activity (i.e. HR>120, tremor, sweating, agitation, nausea)?: No Result: 0
[2021-07-05] MEDS: ceFAZolin 2 GM/50 ML BAG IVPB (08:47)
[2021-07-05] MEDS: Ketorolac 30 MG/ML VIAL (11:00)
[2021-07-05] MEDS: Bupivacaine 0.25% Pres-Free 30 ML VIAL (11:00)
--- NOTE | 2021-07-05 13:01 | W.PM.OP ---
Date of service: 07/05/21 Time of Service: 12:00 Operative Note Operative Note DATE OF PROCEDURE: 07/05/21 PRE-OP DIAGNOSIS: Left comminuted, intra-articular distal femur fracture POST-OP DIAGNOSIS: same PROCEDURE: Open reduction and internal fixation of comminuted, intra-articular left distal femur fracture SURGEON: Dariel Graff QUALITY CONTROL ASSESSOR: Deepti Forde Refer to Anesthesia Record ESTIMATED BLOOD LOSS: 100 Indications: Brown is a 56-year-old who suffered a fall injuring his left distal femur. He was diagnosed with a comminuted, intra-articular distal femur fracture. In discussion about treatment options and given the displaced nature and the articular nature of the fracture I recommended operative fixation. I reviewed the technical details with him. I also discussed the risk of the case to include bleeding, infection, pain, stiffness, loss of reduction, union, nonunion, arthritis, damage to nerves and vessels, damage to muscle and tendons. Despite these risks, he elected to proceed. Findings: There was a highly comminuted fracture of the distal femur. There was free pieces of cartilage with a little bone attached. The bone quality was quite poor in this region. The distal articular block was reestablished using a 4.5 mm cannulated compression screw in addition to 2 separate screws within small pieces of cartilage. There is notable comminution and deformity of the bone anteromedially which was unable to be fully reconstructed. The distal articular block was reattached to the femoral shaft using a lateral based locking plate overlapping the total hip femoral stem. Procedure Description: Brown was greeted in the preoperative holding area. His identity was confirmed upstairs, marked on the correct side, and his consent was reviewed and signed. He was seen back to the operating room. He is placed in the supine position. All bony prominences well-padded. The left leg was placed onto a bone foam ramp and a bump spacer at the left hip. Prophylactic antibiotics in the form of cefazolin administered. 1 g of tranexamic acid was also given. The left leg was prepped ChloraPrep and draped in a standard fashion making sure the entirety of the lateral femur was exposed. A timeout was performed for safe surgery. A midline incision was made overlying the knee extending proximal to the patella and to the level of the tibial tubercle distally. This is taken out sharply through the skin. The extensor mechanism was identified in the lateral based full-thickness flap was elevated. A lateral parapatellar arthrotomy was performed making sure not to injure the underlying cartilage. Large hematoma was evacuated from the knee. This was taken down through the tissue all the way to the tibial tubercle just lateral to the patellar tendon. The incision was taken through some the fat pad that made sure not to violate the lateral meniscus. The fracture lines were clearly evident and there was significant comminution. There is a free piece of cartilage which floated out the knee with irrigation. This was saved in saline to be reinserted later in the case. There is also some pieces at the articular edge which had synovial attachment still on the but little bone and these were also left attached to the synovial pieces. There is significant medially. The bone in this area was quite soft. I then began to reestablish the articular block. With manual manipulation of the medial fragment to the lateral fragment and drove a K wire across these 2 pieces. This brought the intercondylar split back together. However, is difficult to fully appreciate the reduction given loose piece of cartilage which were not present. When appear to be appropriately reduced I placed another K wire from the 4.5 mm cannulated headless screw system. Fluoroscopy was utilized to confirm appropriate position both in the AP and the lateral and then I placed a 4 to 5 mm cannulated headless compression screw. This secured the medial lateral fragments together. I then placed the cartilage pieces back into their void. There is very little bone attached them but the central portion of the trochlea was involved in 1 of these pieces. It fit into the defect quite well and then a superior piece with synovial attachment was placed superiorly which reconstructed the trochlea. I placed a 2.0 millimeter screw in the distal segment, countersink below the cartilage margin. This had marginal fixation but enough to hold the piece in place. A 2.7 millimeter screw was then placed in the more superior segment which help sandwich this piece together within the trochlea. There was maybe 1 to 2 mm diastases some the cartilage edges but there is very little bone attached to which made securing this quite difficult. However, it was not displaceable. At this point there seem to be a solid articular block with very little bone and so I proceeded with placement of the lateral baseplate. A 12 hole [employer]ynthe[employer] variable angle distal femur plate was selected such that it overlapped the bottom aspect of the total hip femoral stem. Cortical irregularity from previous traction pin of the distal femur was smoothed down with a rongeur. The plate with the targeting arm was slid onto the lateral aspect of the femur. It was positioned and x-ray was utilized to confirm appropriate positioning both in the AP and the lateral. A K wire was placed just distal to the femoral stem and secured the plate proximally and a K wire was placed similarly the distal aspect secured to the femur. Then placed 3 locking screws distally. A clamp was utilized to close down the medial split and hold the plate against the bone. This was clamped prior to placement of the screws. The screws were placed such that the went to the second cortex given the poor bone quality in this area. X-rays utilized confirm they were appropriately placed. Screws were close to penetrate in the posterior medial femur appear to be still within the bone. They did not appear to be going into the notch. I then placed a cortical screw through the plate and into the medial metaphyseal split. I was able to purchase the split with the screw and close down the gap both on the AP and the lateral. An additional locking screw was placed distally. Screws proximal to the fracture were then placed through the targeting arm. 2 nonlocking screws were placed first once again bringing the plate down to the bone. The K wire from the target arm was removed. Then, 2 periprosthetic unicortical locking screws were placed in the plate through the targeting arm where it overlapped the total hip stem. These screws were placed with percutaneous stab wounds. Final x-rays were obtained. Overall alignment appeared to be intact. There was still some comminution at the fracture site and the lateral was difficult to appreciate. However, do not believe there is significant malrotation. The wound was thoroughly irrigated. I then irrigated the wound with a sterile, dilute Betadine product, Surgiphor. This is allowed to sit for 3 minutes and then irrigated once again with saline. All the deep tissues and soft tissues were injected with a mixture of 0.25% bupivacaine, 15 mg ketorolac, and 20 cc of Exparel. The arthrotomy was closed with #1 Vicryl followed by a #2 barbed suture. The deep tissues were closed with 0 Vicryl followed by 2-0 Vicryl. The skin and the percutaneous incision sites were closed with colby. The wounds were dressed with Xeroform, gauze, ABD, Kerlix and Gene wrap. A knee immobilizer was placed. At the end the case all counts are correct. Brown was transferred back to the PACU in stable condition. There is no notable complications. He will be touchdown weightbearing on the left lower extremity with a knee immobilizer for immobilization.
[2021-07-05] MEDS: Acetaminophen 500 MG TAB 1000 MG PO ×2 (15:09→19:27)
[2021-07-05] MEDS: ceFAZolin 1 GM/50 ML BAG IVPB ×2 (15:09→21:19)
--- NOTE | 2021-07-05 15:35 | W.ANESPOSTOP ---
Postoperative Evaluation Date, Time and Location Date Performed: 07/05/21 Time Performed: 13:30 Patient Location: PACU Vital Signs Most Recent Imported Vital Signs: Most Recent Vital Signs Temp Pulse Resp BP Pulse Ox 36.3 C L 80 18 133/68 94 07/05/21 15:10 07/05/21 15:10 07/05/21 15:10 07/05/21 15:10 07/05/21 15:10 Pain Score Most Recent Pain Score: Most Recent Pain Score Pain Level [Left Leg] 7 07/04/21 13:19 Pain Level [Left Knee] 9 07/03/21 13:36 Pain Level 5 07/05/21 15:10 Assessment Mental Status: Awake (Alert & Oriented to Patient Baseline) Airway and Respiratory Function: Patent airway with normal (patient baseline) respiratory exam Cardiovascular Function: Hemodynamically Stable Hydration Status: Adequately Hydrated Nausea & Vomiting: No Nausea or Vomiting Pain: Pain is tolerable per patient Peripheral Nerve Block: Patient did not receive a nerve block
[2021-07-05] MEDS: Empaglifozin 25 MG TAB PO (17:10)
[2021-07-05] MEDS: Nicotine 21 MG/24 HR PATCH TD (18:05)
[2021-07-05] MEDS: Lisinopril 20 MG TAB PO (19:27)
[2021-07-05] MEDS: oxyCODONE 5 MG TAB 10 MG PO (21:20)
[2021-07-06 00:45] VITALS: O2SAT 94
[2021-07-06] MEDS: HYDROmorphone 2 MG/ML VIAL 1 MG IVP ×3 (01:53→09:55)
[2021-07-06] MEDS: Normal Saline Flush 10 ML SYR IVP ×3 (01:53→09:56)
[2021-07-06 01:55] LABS: Vitamin D 25 Total 11.6 ng/mL (30-100)
[2021-07-06] MEDS: ceFAZolin 1 GM/50 ML BAG IVPB (06:28)
[2021-07-06 07:45] LABS: HCT 38.7 % (40.0-50.0); HGB 12.6 g/dL (13.5-17.5); MCH 30.4 pg (27.0-33.0); MCHC 32.6 % (32.0-36.0); MCV 93.5 fL (80-95); MPV 10.2 fL (8.0-11.0); Platelet Count 220 10^3/uL (130-400); RBC 4.14 10^6/uL (4.36-5.78); RDW 14.1 % (11.8-14.1); RDW-SD 48.1 fL; WBC 18.12 10^3/uL (4.4-10.8)
[2021-07-06 08:12] LABS: Anion Gap 9.2 mmol/L (3-11); BUN 33 mg/dL (7-18); CO2 27.8 mmol/L (21.0-32.0); CREATININE 1.1 mg/dL (0.70-1.30); Calcium 8.6 mg/dL (8.5-10.1); Chloride 103 mmol/L (98-107); Glucose 180 mg/dL (74-106); Potassium 4.1 mmol/L (3.5-5.1); Sodium 140 mmol/L (136-145)
[2021-07-06] MEDS: Enoxaparin 40 MG/0.4 ML SYR SC (08:35)
[2021-07-06] MEDS: Acetaminophen 500 MG TAB 1000 MG PO (08:36)
[2021-07-06] MEDS: Nicotine 21 MG/24 HR PATCH TD (08:36)
[2021-07-06] MEDS: Lisinopril 20 MG TAB PO (08:37)
[2021-07-06] MEDS: Empaglifozin 25 MG TAB PO (08:38)
[2021-07-06] MEDS: hydroCHLOROthiazide 12.5 MG TAB PO (08:38)
[2021-07-06] MEDS: amLODIPine 5 MG TAB PO (08:40)
[2021-07-06 08:57] VITALS: BP 153/76; PULSE 81; RESP 18; TEMP 36.8; O2SAT 95
--- NOTE | 2021-07-06 09:25 | IN_ITS ---
Date of service: 07/06/21 Time of Service: 09:25 PT Notes Visit Reasons: Left Distal Femur Fracture Physical Therapy Inpatient Initial Evaluation Date: 07/06/2021 Referring Doctor: Dariel Graff MD PT Orders: PT CONSULT: Status post Ortho surgery. S/p ORIF left distal femoral fracture. TDWB LL LE with KI. Precautions: Fall. Standard. TDWB on L LE with AD and KI. Patient Profile/Admitting Diagnosis: Brown is a 56-year-old male with close comminuted intra-articular fracture at the distal end of left femur sustained from a slip and fall on the ice and is status post ORIF on postoperative day one. PMHX: All Active Problems? Closed comminuted intra-articular fracture of distal end of femur (Acute) Obesity (Chronic) he needs to quit drinking sodaChronic pain (Acute 09/15/16) Diabetes type 2, uncontrolled (Chronic 02/24/15) Gout (Acute 04/19/14) GERD (gastroesophageal reflux disease) (Chronic 11/25/14) Smoker (Chronic 06/05/13) Acute CVA (cerebrovascular accident) (Acute) Smyhwq-ib-rijlxduzn syndrome (Acute) Non-compliance (Chronic) Pain in left hip (Acute) BCC (basal cell carcinoma), face (Acute ~11/12/19) [place]12[place] [facility] [place]Viral illness (Acute) Rule out coronavirus 19Lesion of right douglas kidney (Acute) Skin lesion (Acute) Abdominal pain (Acute) Diabetes mellitus (Chronic) Hypertension (Chronic) Well adult (Chronic) health compromised by worsening obesity History of open reduction and internal fixation (ORIF) procedure (Acute) History of shoulder surgery (Acute) Status post carpal tunnel release (Acute) Dental abscess (Acute 05/31/17) Facial cellulitis (Acute 05/31/17) Surgical History? Fracture, Open [place] 10/30/[place] [facility] [place] H[place] REDUCTION AND ORIF L FEMUR FXOpen Carpal Tunnel release b/l shoulder repair left Social History/Home Situation: Lives with significant other in a mobile home with three steps to enter with a rail on one side. Independent with mobility ADl performance prior to surgery. Equipment Owned/DME: None Subjective: Agreeable to PT consult. Reports 6-7/10 pain in the L thigh and knee and is agreeable with taking in pain medication and with being seen about half an hour later. Objective: General Observation: Seated on bedside recliner. TEDS on B legs. Mental Status: Alert and oriented as to person, place, time, and purpose. Able to pay attention, focus, and respond appropriately. Pain: 6-7/10 in L thigh and knee Vital Signs: WNL as closely monitored by nursing staff ROM: Right Upper Extremity: Shoulder Flexion WFL. Shoulder abduction WFL. Elbow flexion WFL. Wrist flexion WFL. Functional opening and closing of hand WFL. Left Upper Extremity: Shoulder Flexion WFL. Shoulder abduction WFL. Elbow flexion WFL. Wrist flexion WFL. Functional opening and closing of hand WFL. Right Lower Extremity: Hip flexion WFL. Hip abduction WFL. Knee flexion NT. Knee extension with NT. Ankle dorsiflexion WFL. Ankle plantarflexion WFL. Left Lower Extremity: Hip flexion WFL. Hip abduction WFL. Knee flexion WFL. Ankle dorsiflexion WFL. Ankle plantarflexion WFL. Strength: Right Upper Extremity: Shoulder flexors 4/5. Shoulder abductors 4/5. Elbow flexors 5/5. Elbow extensors 5/5. Aviation Maintenance Technician strong. Left Upper Extremity: Shoulder flexors 4/5. Shoulder abductors 4/5. Elbow flexors 5/5. Elbow extensors 5/5. Aviation Maintenance Technician strong. Right Lower Extremity: Hip flexors 4-/5. Hip abductors 4-/5. Knee flexors 4-/5. Knee extensors 4-/5. Ankle dorsiflexors 4-/5. Ankle plantarflexors 4-/5. Left Lower Extremity: Hip flexors 3/5. Hip abductors 3/5. Knee flexors NT. Knee extensors NT. Ankle dorsiflexors 4-/5. Ankle plantarflexors 4-/5. Bed Mobility/Transfers: Sit to stand with that guard assist Stand to sit with standby assist Bed to reclining chair with contact-guard assist Gait: Instructed patient with level surface ambulation of 12 feet +12 requiring contact-guard assist using bilateral axillary crutches. Teodora decreased. TDWB on L LE with AD knee immobilizer on. Balance: Static Sitting: Normal Dynamic Sitting: Normal Static Standing: Fair with bilateral axillary crutches Dynamic Standing: Fair withbilateral axillary crutches Special Tests: Mobility Limitations Standardized [employer] AM-PAC 6 clicks Basic Mobility Inpatient Short Form: Raw Score: 19 CMS Score: 42% deficit Informed Consent/Education: Patient was instructed in purpose of PT consult and plan of care. Agreeable to proceed with established PT POC to achieve personal goals. Assessment: Jose Antonio requires the use of bilateral axillary regions for all mobility ADL performance to maximize independence and reduce fall risk. He is compliant with weight bearing precautions using assistive device. Significant other will be a very good support as he recovers at home. Patient presents with clinical signs and symptoms consistent with current/admitting diagnoses that have resulted to mobility limitations, gait instability, generalized weakness, and overall ADL decline as demonstrated by the following impairment level findings: 1. Decreased strength to left hip and knee major muscle groups 2. Impaired standing balance 3. Impaired activity tolerance 4. Limitation of joint range of motion in left knee 5. Pain in L thigh and knee at 6-7/10 Impairments are contributing to the following functional limitations: 1. Difficulty with ambulation without assistive device 2. Increased completion time for mobility ADL performance 3. Increased risk for falls 4. Difficulty with managing steps alone safely Patient is assessed as a 80097 moderate complexity based on the following: History: 56-year-old male with past medical history as indicated above Examination: Demonstrable impairment in strength, balance, and mobility level with underlying impairments and functional limitations as exhibited above as well as deficit score of 42% utilizing the [facility] Mobility Inpatient Short Form Presentation: Evolving Decision Makin moderate complexity Goals: Goals X1 week 1. Supine-Sit independent 2. Sit-Supine independent 3. Sit-Stand independent 4. Stand-Sit independent with JULIANNE 5. Bed-Chair independent with JULIANNE 6. Chair-Bed independent with JULIANNE 7. Independent gait on level surface with use of JULIANNE for at least 100 feet without report of pain nor dyspnea 8. Independent stair negotiation while holding onto 1 rail for at least 5 steps without report of pain nor dyspnea 9. Independent with home exercise program 10. Good static and dynamic standing balance/tolerance Plan of Care/Treatment Plan: 1-2x/day, 7 days/week x 1 week. Plan of care has been reviewed with the [facility] CANDY MOLDER providing the service under Physical Therapy direction. Initiate Physical Therapy intervention for pain management as needed, strengthening, bed mobility, transfers, gait, stairs, balance training, and use of assistive device. DISCHARGE RECOMMENDATIONS: [] Home with no services [] [] Home with services [specify] [X] Home with outpatient PT. Home when medically cleared by orthopedic surgeon. Patient will benefit from outpatient PT services in order to facilitate return to independent community ambulation with least restrictive device. [] SNF for continued rehabilitation [] [] [facility] [] [] SNF versus LTC based on ability to participate and progress [] TREATMENT CODE/TIME: 19044 x 20 minutes, 18587 x 11 minutes beginning at 9:25 AM. Thank you for the opportunity to participate in the care of this patient. Yovana Noel PT, DPT, CLT [facility] [place], [place]
--- NOTE | 2021-07-06 09:42 | PDOC.CMPRO ---
- If Service Date Differs Date of service: 07/06/21 Time of Service: 09:42 Care Management Progress Note S/O: Jose Antonio was A: 56 year old male admitted to [facility] on 07/03/21 for Left Distal Femur Fracture P:Brown will likely be discharged home, possibly with new home health services if recommended and if he accepts the recommendation. He will follow up with his community providers and plan of care and transport with family. CM will continue to support Brown and his discharge planning concerns.
[2021-07-06] MEDS: Ketorolac 15 MG/ML VIAL IVP (09:54)
--- NOTE | 2021-07-06 10:11 | INDS_ITS ---
Date of service: 07/06/21 Time of Service: 10:11 PT Notes Visit Reasons: Left Distal Femur Fracture Physical Therapy Inpatient Discharge Summary Date: 07/06/2021 Dates of service: 07/06/2021 only Precautions: Fall. Standard. TDWB on L LE with AD and KI. Subjective: Pain level down to 3/10 pain on the left hip and knee Objective: General Observation: Seated on bedside recliner.? TEDS on B legs. Mental Status: Alert and oriented as to person, place, time, and purpose. Able to pay attention, focus, and respond appropriately. Pain: 3/10 in L thigh and knee Vital Signs: WNL as closely monitored by nursing staff ROM: Right Upper Extremity: ? Shoulder Flexion WFL. Shoulder abduction WFL. Elbow flexion WFL. Wrist flexion WFL. Functional opening and closing of hand WFL. Left Upper Extremity:? Shoulder Flexion WFL. Shoulder abduction WFL. Elbow flexion WFL. Wrist flexion WFL. Functional opening and closing of hand WFL. Right Lower Extremity: Hip flexion WFL. Hip abduction WFL. Knee flexion NT. Knee extension with NT.? Ankle dorsiflexion WFL. Ankle plantarflexion WFL. Left Lower Extremity: Hip flexion WFL. Hip abduction WFL. Knee flexion WFL. Ankle dorsiflexion WFL. Ankle plantarflexion WFL. Strength: Right Upper Extremity: Shoulder flexors 4/5. Shoulder abductors 4/5. Elbow flexors 5/5. Elbow extensors 5/5. Petrophysicist strong. Left Upper Extremity: Shoulder flexors 4/5. Shoulder abductors 4/5. Elbow flexors 5/5. Elbow extensors 5/5. Petrophysicist strong. Right Lower Extremity: Hip flexors 4-/5. Hip abductors 4-/5. Knee flexors 4-/5. Knee extensors 4-/5. Ankle dorsiflexors 4-/5. Ankle plantarflexors 4-/5. Left Lower Extremity: Hip flexors 3/5. Hip abductors 3/5. Knee flexors NT. Knee extensors NT. Ankle dorsiflexors 4-/5. Ankle plantarflexors 4-/5. Bed Mobility/Transfers: Sit to stand with standby assist Stand to sit with standby assist Bed to reclining chair with standby assist Gait: Instructed patient with level surface ambulation of 80 feet + 80 feet requiring standby assist using bilateral axillary crutches. Teodora decreased. TDWB on L LE with AD knee immobilizer on. Pain report decreased down to 3/10 with pain medication intake half an hour before. Stairs: Tolerated up-and-down 6 x 4 inch steps and 4 x 6 inch steps holding onto one rail on one side and a crutch on the other side with step to gait pattern requiring contact-guard assist. Balance: Static Sitting: Normal Dynamic Sitting: Normal Static Standing: Fair with bilateral axillary crutches Dynamic Standing: Fair withbilateral axillary crutches Assessment: Refuses PT services at this time. States that his significant other will be able to help him out as needed at home. COmpliant with WB recommendations. Jose Antonio requires the use of bilateral axillary regions for all mobility ADL performance to maximize independence and reduce fall risk.? He is compliant with weight bearing precautions using assistive device.? Patient presents with clinical signs and symptoms consistent with current/admitting diagnoses that have resulted to mobility limitations, gait instability, generalized weakness, and overall ADL decline as demonstrated by the following impairment level findings: 1.? Decreased strength to left hip and knee major muscle groups 2.? Impaired standing balance 3.? Impaired activity tolerance 4.? Limitation of joint range of motion in left knee 5. Pain in L thigh and knee at 6-7/10 Impairments are contributing to the following functional limitations: 1.? Difficulty with ambulation without assistive device 2.? Increased completion time for mobility ADL performance 3.? Increased risk for falls 4.? Difficulty with managing steps alone safely Goals: Goals X1 week 1. Supine-Sit independent NOT MET 2. Sit-Supine independent NOT MET 3. Sit-Stand independent NOT MET 4. Stand-Sit independent with JULIANNE NOT MET 5. Bed-Chair independent with JULIANNE NOT MET 6. Chair-Bed independent with JULIANNE NOT MET 7. Independent gait on level surface with use of JULIANNE for at least 100 feet without report of pain nor dyspnea NOT MET 8. Independent stair negotiation while holding onto 1 rail for at least 5 steps without report of pain nor dyspnea NOT MET 9. Independent with home exercise program NOT MET 10. Good static and dynamic standing balance/tolerance NOT MET Plan of Care/Treatment Plan: 1-2x/day, 7 days/week x 1 week. Plan of care has been reviewed with the LOCKSTITCH HEMMER providing the service under Physical Therapy direction. Initiate Physical Therapy intervention for pain management as needed, strengthening, bed mobility, transfers, gait, stairs, balance training, and use of assistive device. DISCHARGE RECOMMENDATIONS: [] ? Home with no services [] [] ? Home with services [specify] [X] ? Home with outpatient PT.? Home when medically cleared by orthopedic surgeon.? Patient will benefit from outpatient PT services in order to facilita te return to independent community ambulation with least restrictive device.? [] ? SNF for continued rehabilitation [] [] ? [facility] [] [] ? SNF versus LTC based on ability to participate and progress [] TREATMENT CODE/TIME: 19638 x 31 minutes beginning at 10:11 AM. Thank you for the opportunity to participate in the care of this patient. Yovana Noel PT, DPT, CLT [facility] [place], [place]
--- NOTE | 2021-07-06 12:32 | DSE_ITS ---
DS: Diagnosis Discharge Diagnosis (1) Closed comminuted intra-articular fracture of distal end of femur: Status: Acute Discharge Plan Disposition Patient Disposition: HOME Condition: Stable Discharge Details Reason For Visit: Left Distal Femur Fracture Admit Date/Time: 07/03/21 20:40 Admit Provider: Dariel Graff Attending Provider: Dariel Graff Primary Care Provider: Bradley Carmichael Hospital Course Hospital Course: Brown was admitted from the Emergency Department to the medical surgical floor for a displaced and comminuted intra-articular distal femur fracture. He was taken to the operating room on HD#2 for ORIF of the left distal femur. There were no sugical or medical complications. On POD#1 he was doing well without acute concerns. He mobilized with PT with his weight-bearing restrictions. His pain was controlled with Hydromorphone. He was cleraed for discharge to home. Home Meds and New Rx's Prescriptions: New hydromorphone 4 mg Tablet 4 mg PO Q4H PRN PRNQty: 24 0RF celecoxib 200 mg capsule 200 mg PO BID PRN (Reason: pain) Qty: 60 1RF aspirin 81 mg tablet,delayed release (DR/EC) 81 mg PO BID Qty: 60 0RF acetaminophen 500 mg tablet 1,000 mg PO Q8H PRN (Reason: pain) Qty: 90 3RF Continued lisinopril-hydrochlorothiazide 20-12.5 mg tablet 1 tab PO DAILY Qty: 90 3RF levalbuterol tartrate 45 mcg/actuation HFA aerosol inhaler 2 inh IH Q6H PRN (Reason: shortness of breath) Qty: 15 11RF Jardiance 25 mg tablet 25 mg PO QAM Qty: 90 3RF Rx Instructions: dose increase 06/03/21 colchicine 0.6 mg tablet 0.6 mg PO BID PRN0RF Rx Instructions: Take twice daily until gone. amlodipine 5 mg tablet 5 mg PO DAILY Qty: 90 3RF lisinopril 20 mg tablet 20 mg PO DAILY Qty: 90 3RF omeprazole 40 mg capsule,delayed release(DR/EC) 40 mg PO BID Qty: 180 3RF Discontinued acetaminophen 325 MG tablet 325 mg PO Q6H PRN 0RF Label Comments: 09/01/16- PATIENT STATES HE IS NOT TAKING. Rx Instructions: 2 tabs Q6hr PRN naproxen 500 mg tablet 500 mg PO Q12H PRN Qty: 60 2RF oxycodone 5 mg tablet 5 - 10 mg PO HS MDD 2 tabs PRN (Reason: pain) Qty: 60 0RF No Action (DME) FreeStyle Corazon 2 [facility] See Rx Instructions .ROUTE .MEDSUPPLY Qty: 1 0RF Rx Instructions: As directed (DME) FreeStyle Corazon 2 Sensor Kit See Rx Instructions .ROUTE .MEDSUPPLY Qty: 1 5RF Rx Instructions: As directed (DME) lancets [OneTouch Delica Lancets] 33 gauge mis See Rx Instructions .ROUTE .MEDSUPPLY Qty: 100 3RF Rx Instructions: test daily (DME) blood-glucose meter [OneTouch Verio Flex meter] [facility] See Rx Instructions .ROUTE .MEDSUPPLY Qty: 1 0RF Rx Instructions: test daily (DME) OneTouch Verio test strips Strip See Rx Instructions .ROUTE .MEDSUPPLY Qty: 100 3RF Rx Instructions: test daily Discharge Instructions Additional Instructions: Discharge Instructions Activity: You should limit weight-bearing through the left leg. You may rest your foot (toe-touch weight) on the ground for balance. You should use crutches to assist with the weight bearing restrictions. Additionally, you have a knee immobilizer which should be kept in place for any mobilization or sleeping. You may remove the brace or unstrap while still and with the leg supported. You may move your ankle and toes as needed. Dressing: You should keep the initial knee dressing in place for 3 days. After this, you may remove the DAVONTE Wrap and the dressings and replace with the Mepilex dressings provided at your discharge. One dressing will go on the front of the knee, the other will go on the outside of the thigh. If the dressings become soiled, you should call and notify the office. To shower, it is best to cover the dressings with a Saran Wrap (Cling Wrap) to keep from getting soaked. It may get damp or lightly wetted, but if it starts to peel up or becomes soaked it will need to be changed. Medications: - You should take Tylenol and Celebrex (anti-inflammatory) around the clock for the first days-weeks. This will cover baseline pain control. - You have been prescribed a stronger medication, Hydromorphone (Dilaudid) if needed. If this is necessary, and you need a refill, please call the office at [phone]. Stand Alone Forms: Nursing Discharge Form Referrals: Dariel Graff MD [ [facility] - 07/17/21 10:00 am (If the appointment time or date changes the office will call and let you know.) Activity:: Toe-touch weight bearing Equipment/Supplies:: No Equipment Needed Diet:: Carb Counting Discharge Orders Discharge Orders: Discharge Order (Routine); Ordered 07/06/21 Ordered By: Dariel Graff DS: Summary Time Spent with Patient providing and/or coordinating discharge services: Less than 30 minutes Status at Discharge Functional status at discharge: uses cane/walker Overall status at discharge: patient is progressing back to baseline Mental Status: mental status grossly normal Speech and Movement: speech and movement normal Mood: congruent mood Affect: normal affect Exam Psych Mental Status: mental status grossly normal Speech and Movement: speech and movement normal Mood: congruent mood Affect: normal affect DS: Data Vitals/I&O Vitals and I&O: Vital Signs Temperature 36.8 C 07/06/21 08:57 Temperature Source Tympanic 07/06/21 08:57 Pulse 81 07/06/21 08:57 Pulse Rhythm Regular 07/06/21 04:47 Respiratory Rate 18 07/06/21 08:57 Respiratory Effort Non-Labored 07/06/21 04:47 Respiratory Depth Normal 07/06/21 04:47 Respiratory Pattern Normal 07/06/21 04:47 Blood Pressure 153/76 H 07/06/21 08:57 Blood Pressure Position Supine 07/03/21 13:31 Pulse Oximetry 95 07/06/21 08:57 Respiratory End-tidal CO2 42 07/05/21 13:16 Oxygen Delivery Method Nasal Cannula 07/06/21 08:57 Oxygen Flow Rate 2 07/06/21 08:57 Pain Level 6 07/06/21 09:55 Comment 07/05/21 23:30 Intake & Output 07/05/21 07/06/21 07/06/21 23:59 11:59 23:59 Intake Total 800 / 910 300 / 300 Output Total 900 / 1700 900 / 900 Balance -100 / -790 -600 / -600 Intake: IV 800 / 910 Oral 300 / 300 Output: Urine 600 / 1300 900 / 900 Emesis 300 / 300 Other: Urine Color Yellow Yellow Urine Appearance Clear Clear Urine Odor Normal Emesis Description None Voiding Methods Urinal Urinal Data Completed and Pending Labs on day of discharge: Labs from last 24 hours 07/06/21 07/06/21 07/04/21 07:20 07:20 08:15 WBC 18.12 H RBC 4.14 L Hgb 12.6 L Hct 38.7 L MCV 93.5 MCH 30.4 MCHC 32.6 RDW 14.1 Plt Count 220 MPV 10.2 Sodium 140 Potassium 4.1 Chloride 103 Carbon Dioxide 27.8 Anion Gap 9.2 BUN 33 H D Creatinine 1.1 Estimated GFR/1.73 m2 >= 60.00 Glucose 180 H Calcium 8.6 25-OH Vitamin D Total 11.6 L PFSH All Active Problems Closed comminuted intra-articular fracture of distal end of femur (Acute) Obesity (Chronic) he needs to quit drinking soda Chronic pain (Acute 09/15/16) Diabetes type 2, uncontrolled (Chronic 02/24/15) Gout (Acute 04/19/14) GERD (gastroesophageal reflux disease) (Chronic 11/25/14) Smoker (Chronic 06/05/13) Acute CVA (cerebrovascular accident) (Acute) Bchash-sy-xboojoosi syndrome (Acute) Non-compliance (Chronic) Pain in left hip (Acute) BCC (basal cell carcinoma), face (Acute ~11/12/19) 11/12/19 [facility] (LEFT CHEEK) Viral illness (Acute) Rule out coronavirus 19 Lesion of right [place] kidney (Acute) Skin lesion (Acute) Abdominal pain (Acute) Diabetes mellitus (Chronic) Hypertension (Chronic) Well adult (Chronic) health compromised by worsening obesity History of open reduction and internal fixation (ORIF) procedure (Acute) History of shoulder surgery (Acute) Status post carpal tunnel release (Acute) Dental abscess (Acute 05/31/17) Facial cellulitis (Acute 05/31/17) Surgical History Fracture, Open Treatment 10/30/14 [facility] [place]; ORIF L HIP REDUCTION AND ORIF L FEMUR FX Open Carpal Tunnel release b/l shoulder repair left Family History Mother No problems noted. Father Diabetes Essential hypertension Heart disease Hyperlipidemia Stroke Cancer Sister Asthma Maternal Grandfather Alcohol abuse Depression Paternal Grandfather , 90 No problems noted. Maternal Grandmother , 96 Asthma Diabetes Heart disease Paternal Grandmother , 78 Diabetes Essential hypertension Stroke Daughter Substance abuse Essential hypertension Depression Social History Smoking/Tobacco Use Status: Current every day Tobacco Type: cigarettes Tobacco: How many years used: 40 Quit status: considering quitting Smoking risk assessment performed?: Yes Alcohol Intake: current Alcohol Intake frequency: holidays/special occasions only Alcohol type: beer Drug use: Daily Substance use type: marijuana Caregiver/Support person: No Household members: significant other Housing: other Details: mobile home Communication Needs: None Pets and animals: Yes Pets and animals: dog(s) Sexually active: Yes Do you think of yourself as: straight/heterosexual Current gender identity: male What is your relationship status?: living with partner How often do you talk on the phone with friends or family?: three or more times per week How often do you get together with friends or relatives?: once per week How often do you attend sabianist or spiritism services?: decline to answer Do you belong to any clubs or organized social groups?: decline to answer Panel score (0-1 are the most socially isolated patients): 2 What type of physical activity do you participate in: decline to answer Duration: < 15 minutes/day Geovanna/Methodist: None Special geovanna needs: No Seatbelt use: always Helmet use: Yes Helmet use: sometimes Drive intox or ride w/intox armored truck driver: No Do you feel safe at home: Yes Do you feel safe in your relationship?: Yes
[2021-07-06] MEDS: oxyCODONE 5 MG TAB 10 MG PO (12:56)
--- NOTE | 2021-07-06 15:38 | PDOC.CMDIS ---
- If Service Date Differs Date of service: 07/06/21 Time of Service: 15:39 LACE Index Scoring Tool - Questions: Length of Stay (in days): 3 Acuity (Admit via E.D.?): Yes Comorbidities: Diabetes w/o Complication E.D. Visits: 2 - Answers: Total Score: 9 Risk of Readmission: Low Risk Care Management Discharge Reason for Hospitalization: fracture of left distal femur Discharge Plan: Discharge home via private vehicle with family. No new [facility] services are needed at this time. Follow up with Dr. Graff on 07/17/21 at 10am and follow discharge plan of care as prescribed. Patient/Family Education Needs: Review discharge instructions, limitations, medications and plan to follow up with community providers. ask me three.
== END 2021-07-06 13:22 | disposition home or self-care (01) | DRG 482 ==
LOC: ER 21:11 → MS 21:27
PROVIDERS: Physician Assistant; Admitting Provider Student in an Organized Health Care Education/Training Program; Emergency Provider Nurse Practitioner Family; PCP Family Medicine; Visit Provider Student in an Organized Health Care Education/Training Program
PROC: 0QSC04Z Reposition Left Lower Femur with Internal Fixation Device, Open Approach (ICD-10-PCS; CPT 27513; principal; 2021-07-05 08:30)
DX: S72.492A Other fracture of lower end of left femur, initial encounter for closed fracture (principal); Z86.73 Personal history of transient ischemic attack (TIA), and cerebral infarction without residual deficits; K21.9 Gastro-esophageal reflux disease without esophagitis; Z79.84 Long term (current) use of oral hypoglycemic drugs; E66.9 Obesity, unspecified; Z68.34 Body mass index [BMI] 34.0-34.9, adult; G89.29 Other chronic pain; E11.65 Type 2 diabetes mellitus with hyperglycemia; M10.9 Gout, unspecified; F17.210 Nicotine dependence, cigarettes, uncomplicated; I10 Essential (primary) hypertension; X50.1XXA Overexertion from prolonged static or awkward postures, initial encounter
CPT/HCPCS: 27513; 29515; 36415; 73552; 73562; 76376; 80048; 82306; 85027; 86850; 86900; 86901; 87635; 96374; 96376; 97162; 97530; 99223; 99285; J1650; 73700; 82040; 83036; 84443; J0690; J1100; J1885; J2001; J2405; J2704

== ENCOUNTER 2021-07-17 10:34 | Outpatient (CLI) | payer MEDICARE, SELFPAY ==
--- NOTE | 2021-07-17 10:05 | DI.RAD_ITS ---
Exam(s) XR FEMUR LT EXAM: XR FEMUR LT CLINICAL HISTORY: 1st post op ORIF L femur. TECHNIQUE: 2D digital imaging was performed. COMPARISON: CR XR FEMUR LT from 07/05/2021 FINDINGS: Again noted is the multilevel hardware throughout the left femur Left hip acetabular hardware noted. There is a long stem hip prosthesis again noted with cerclage wires at the subtrochanteric region. T here is a prominent amount of dystrophic calcification noted between the greater trochanter and the l ateral aspect of the pelvis. With respect to the recently placed (07/05/2021) lateral fixation plate, this hardware appear stable and alignment of the distal femoral fractures is fragments appear stable. Independent screws are als o noted at the level of the femoral condyles. IMPRESSION: Stable appearance DATA REPOSITORY: RADIATION DOSE DELIVERED:
== END 2021-07-17 10:35 | disposition home or self-care (01) ==
LOC: DIORS 10:34
PROVIDERS: PCP Family Medicine; Referring Provider Family Medicine; Visit Provider Student in an Organized Health Care Education/Training Program
DX: S72.492A Other fracture of lower end of left femur, initial encounter for closed fracture (principal); X58.XXXA Exposure to other specified factors, initial encounter
CPT/HCPCS: 73552

== ENCOUNTER 2021-08-14 10:28 | Outpatient (CLI) | payer MEDICARE, SELFPAY ==
--- NOTE | 2021-08-14 10:15 | DI.RAD_ITS ---
Exam(s) XR FEMUR LT EXAM: XR FEMUR LT CLINICAL HISTORY: S/P ORIF L DISTAL FEMUR. TECHNIQUE: 2D digital imaging was performed. COMPARISON: CR XR HIP LT COMPLETE AP PELVIS from 05/22/2020 CR XR KNEE LT 3V AP,LAT,RADHA from 07/03/[address] LOWER EXTREMITY LT WO from 07/03/2021 XA XR FEMUR LT from 07/05/2021 CR XR FEMUR LT from 07/17/2021 FINDINGS: Four views Again noted is evidence ORIF femur fracture performed on 07/05/21. Lateral fixation plate is again noted and appears to be satisfactory alignment fracture fragments dis ceci femur level involving distal diaphysis and metaphysis and condyles. Also independent screws at c ondyles and again noted. No hardware loosening. No radiographic evidence of osteomyelitis. Also noted is a left hip prosthesis and fixation plates in the left hemipelvis and abundant dystrophi c calcification interposed between the hip and iliac bone. This exhibits minimal if any significant change when compared to 05/22/2020. IMPRESSION: Satisfactory appearance. DATA REPOSITORY: RADIATION DOSE DELIVERED:
== END 2021-08-14 10:29 | disposition home or self-care (01) ==
LOC: DIORS 10:29
PROVIDERS: PCP Family Medicine; Referring Provider Family Medicine; Visit Provider Student in an Organized Health Care Education/Training Program
DX: S72.492A Other fracture of lower end of left femur, initial encounter for closed fracture (principal); X58.XXXA Exposure to other specified factors, initial encounter; Z47.89 Encounter for other orthopedic aftercare
CPT/HCPCS: 73552

== ENCOUNTER 2021-09-28 09:15 | Outpatient (CLI) | payer MEDICARE, SELFPAY ==
--- NOTE | 2021-09-28 08:45 | DI.RAD_ITS ---
Exam(s) XR FEMUR LT EXAM: XR FEMUR LT CLINICAL HISTORY: S/P ORIF L DISTAL FEMUR. TECHNIQUE: 2D digital imaging was performed. AP and lateral views. COMPARISON: There are multiple priors with the most recent from 14 August 2021 FINDINGS: There has been no change in the appearance of the hardware in the left pelvis as well as left hip pro sthesis. Stable appearance a large amount of heterotopic calcification around the left hip. There h as been continued healing of the distal femoral fracture. The distal femoral hardware is unchanged i n alignment. No new abnormalities. IMPRESSION: Stable appearance of hardware in the left hip as well as left femur. Continued healing distal femora l fracture. DATA REPOSITORY: RADIATION DOSE DELIVERED:
== END 2021-09-28 09:16 | disposition home or self-care (01) ==
LOC: DIORS 09:15
PROVIDERS: PCP Family Medicine; Referring Provider Family Medicine; Visit Provider Student in an Organized Health Care Education/Training Program
DX: S72.492A Other fracture of lower end of left femur, initial encounter for closed fracture; X58.XXXA Exposure to other specified factors, initial encounter
CPT/HCPCS: 20610; 73552; J1040

== ENCOUNTER 2021-11-12 11:57 | Outpatient (CLI) | payer MEDICARE, SELFPAY ==
--- NOTE | 2021-11-12 11:45 | DI.RAD_ITS ---
Exam(s) XR FEMUR LT EXAM: XR FEMUR LT CLINICAL HISTORY: F/U L FEMUR FRACTURE. TECHNIQUE: 2D digital imaging was performed. COMPARISON: Prior x-rays 09/28/2021 FINDINGS: There is relatively stable appearance of extensive hardware throughout left hip femur as well. Advan khanh dystrophic calcification between the greater trochanter and the left side of the pelvis is again noted. Cerclage wire appears. Addition to the long stem prosthesis of the hip there is a lateral fi xation plate across healing-healed fracture of distal femur, exhibiting callus formation when compare d to prior study. There is no loosening the screws nor radiographic evidence of osteomyelitis. IMPRESSION: DATA REPOSITORY: RADIATION DOSE DELIVERED:
== END 2021-11-12 11:58 | disposition home or self-care (01) ==
LOC: DIORS 11:58
PROVIDERS: PCP Family Medicine; Referring Provider Family Medicine; Visit Provider Student in an Organized Health Care Education/Training Program
DX: S72.492A Other fracture of lower end of left femur, initial encounter for closed fracture (principal); X58.XXXA Exposure to other specified factors, initial encounter; M96.89 Other intraoperative and postprocedural complications and disorders of the musculoskeletal system; M70.62 Trochanteric bursitis, left hip
CPT/HCPCS: 73552; 99213

== ENCOUNTER 2021-11-30 02:01 | Outpatient (CLI) | payer MEDICARE, SELFPAY ==
--- NOTE | 2021-11-30 10:54 | DI.CT_ITS ---
Exam(s) CT LOWER EXTREMITY LT WO EXAM: CT LOWER EXTREMITY LT WO CLINICAL HISTORY: hetertopic ossification, troch bursitis,closed comminuted [id number]. TECHNIQUE: Imaging Protocol: Axial computed tomography images with coronal and sagittal reformatted images were created and reviewed. CONTRAST MATERIAL: Intravenous: No COMPARISON: CT 3D RECON ON CT WORKSTATION from 07/03/2021 CR XR FEMUR LT from 11/12/2021 FINDINGS: OSSEOUS: There is a long stem left hip prosthesis with acetabular stabilization screws and there is also ipsil ateral fixation plate at the acetabular level. There is protrusio evident. There is large amount of dystrophic calcification interposed between superior aspect of the greater trochanter and the left h emipelvis. All corticated. There is uniform lucency around the bone-femoral interface of the prosth esis, possibly significant. No acute fractures evident. The uppermost aspect of the ipsilateral lat eral femoral plate is seen. SOFT TISSUES: No abnormal fluid collections evident. IMPRESSION: Abundant dystrophic calcification between the greater trochanter and left hemipelvis Around the for femoral stem component RADIATION DOSE DELIVERED: 641.54mGy.cm Total DLP DATA REPOSITORY: All CT scans at this facility are submitted to the National Radiology Data Registry (NRDR) Dose Index Registry (DIR) with the [employer] (ACR). RADIATION OPTIMIZATION: All CT scans at this facility use at least one of these dose optimization te chniques: automated exposure control; mA and/or kV adjustment per patient size (includes targeted exa ms where dose is matched to clinical indication); or iterative reconstruction.
== END 2021-11-30 02:21 ==
PROVIDERS: PCP Family Medicine; Visit Provider Student in an Organized Health Care Education/Training Program
DX: M61.59 Other ossification of muscle, multiple sites (principal); Z96.642 Presence of left artificial hip joint
CPT/HCPCS: 73700

== ENCOUNTER 2021-12-07 02:25 | Outpatient (CLI) | payer MEDICARE, SELFPAY ==
[2021-12-07 14:34] LABS: Source Nasal/Nares
[2021-12-07 16:43] LABS: COVID-19 PCR Negative (Negative)
== END 2021-12-07 02:26 | disposition home or self-care (01) ==
PROVIDERS: PCP Family Medicine; Visit Provider Student in an Organized Health Care Education/Training Program
DX: Z20.822 Contact with and (suspected) exposure to COVID-19 (principal); Z01.818 Encounter for other preprocedural examination
CPT/HCPCS: 87635

== ENCOUNTER 2021-12-09 06:00 | Day surgery (SDC) | payer MEDICARE, SELFPAY ==
[2021-12-09] VITALS (10 sets, daily range): BP systolic 93–142; BP diastolic 27–83; PULSE 62–73; RESP 13–18; TEMP 35.8–36.4; O2SAT 94–99; BMI 31.4
--- NOTE | 2021-12-09 06:55 | ANES.PREOP_ITS ---
General Info Date of Service Date Performed: 12/09/21 Height: 5 ft 8 in Weight: 93.8 kg Body Mass Index (BMI): 31.4 Surgical Procedure: Operation Date: 12/09/21 07:40 Proposed Procedure Side Surgeon p Hip Trochanteric IT Band Release, Excision of HO Left Dariel Graff MD Meds Allergies and Home Medications Allergies Allergy/AdvReac Type Severity Reaction Status Date / Time Penicillins Allergy Unknown unknown Verified 12/08/21 12:59 fentanyl AdvReac Severe Nausea Verified 12/09/21 06:21 Home Medication Medication Instructions Recorded blood sugar diagnostic (eTruckTouch #100 ea 11/05/19 Verio test strips) blood-glucose meter (eTruckTouch #1 ea 11/05/19 Verio Flex Meter) lancets 33 gauge (OneTouch Delica #100 ea 11/05/19 Lancets) lisinopril 20 1 tab PO DAILY #90 tab-caps 01/14/21 mg-hydrochlorothiazide 12.5 mg tablet amlodipine 5 mg tablet 5 mg PO DAILY #90 tabs 03/03/21 colchicine 0.6 mg tablet 0.6 mg PO BID PRN 03/03/21 flash glucose scanning reader #1 ea 03/03/21 (FreeStyle Corazon 2 [place]) flash glucose sensor (FreeStyle #1 ea 03/04/21 Corazon 2 Sensor kit) lisinopril 20 mg tablet 20 mg PO DAILY #90 tabs 04/10/21 empagliflozin 25 mg tablet 25 mg PO QAM #90 tabs 06/03/21 (Jardiance) acetaminophen 500 mg tablet 1,000 mg PO Q8H PRN pain #90 tabs 07/06/21 albuterol sulfate 90 mcg/actuation 1 - 2 puff inhalation Q6H PRN ##1 09/29/21 aerosol inhaler (ProAir HFA) omeprazole 40 mg capsule,delayed 40 mg PO BID dyspepsia #180 10/26/21 release tab-caps celecoxib 200 mg capsule 200 mg PO DAILY PRN pain #90 caps 11/12/21 oxycodone 10 mg tablet 10 mg PO BID PRN pain #60 tabs 11/23/21 naproxen 500 mg tablet 500 mg PO DAILY 12/09/21 Current Visit Medications: Current Medications Generic Name Dose Route Start Last Admin Trade Name Freq PRN Reason Stop Dose Admin Ringer's Solution 1,000 mls @ 80 mls/hr 12/09/21 06:00 IV 01/07/22 23:59 INFUSION JAY Cefazolin Sodium/Dextrose 2 gm in 50 mls @ 100 mls/hr 12/09/21 06:00 Ancef Duplex IVPB 12/09/21 16:00 PREOP JAY IV Miscellaneous Supplies 1 each 12/09/21 06:00 Iv Access IV 01/07/22 23:59 DIRECTED JAY Sodium Chloride 0 ml 12/09/21 06:00 Normal Saline Flush 10 Ml Syr IV 01/07/22 23:59 PRN PRN Sodium Chloride 0 ml 12/09/21 06:00 Normal Saline 10 Ml Vial IJ 01/07/22 23:59 DIRECTED PRN Sterile Water 0 ml 12/09/21 06:00 Water,Injection,Sterile 10 Ml Vial IJ 01/07/22 23:59 DIRECTED PRN PFSH Active Problems Active Problems: Problem Status Onset Code Trochanteric bursitis of left hip M70.62 Postoperative heterotopic ossification M96.89, M61.50 Closed comminuted intra-articular fracture of distal end of femur S72.499A Obesity E66.9 Chronic pain 09/15/16 G89.29 Diabetes type 2, uncontrolled 02/24/15 E11.65 Gout 04/19/14 M10.9 GERD (gastroesophageal reflux disease) 11/25/14 K21.9 Smoker 06/05/13 F17.200 Acute CVA (cerebrovascular accident) I63.9 Hbbjjh-jg-xzumccoeo syndrome I63.9 Non-compliance Z91.19 Pain in left hip M25.552 BCC (basal cell carcinoma), face ~11/12/19 C44.310 Viral illness B34.9 Lesion of right [place] kidney N28.9 Skin lesion L98.9 Abdominal pain R10.9 Diabetes mellitus E11.9 Hypertension I10 Well adult History of open reduction and internal fixation (ORIF) procedure Z98.890 History of shoulder surgery Z98.890 Status post carpal tunnel release Z98.890 Dental abscess 05/31/17 K04.7 Facial cellulitis 05/31/17 L03.211 Surgical History Surgical History Fracture, Open Treatment 6/24/15 [facility] [place]; ORIF L HIP REDUCTION AND ORIF L FEMUR FX Open Carpal Tunnel release b/l shoulder repair left Tobacco Smoking/Tobacco Use Status: Current every day Tobacco Type: cigarettes Smoking cigarettes per day: 10 Passive smoking exposure: Yes Second hand exposure: Yes Alcohol Alcohol Intake: former Substance Use Substance use: Daily Substance use type: marijuana Details: marijuana: t-1, pt. uses oil Vital Signs and Lab Results Vital Signs Most Recent Vital Signs in EMR: Most Recent Vital Signs Temp Pulse Resp BP Pulse Ox 36.4 C L 73 18 137/83 96 12/09/21 06:26 12/09/21 06:26 12/09/21 06:26 12/09/21 06:26 12/09/21 06:26 Point of Care Results Point of Care Results: Finger Stick Blood Glucose 154 12/09/21 06:45 Lab Results Blood Type / Crossmatch: No Data to Display Complete Blood Count: No Data to Display Complete Metabolic Panel: No Data to Display Liver Function Panel: No Data to Display Coagulation Panel: No Data to Display Cardiac Panel: No Data to Display Arterial Blood Gas: No Data to Display Venous Blood Gas: No Data to Display Pancreas Panel: No Data to Display Thyroid Panel: No Data to Display Infectious Disease: Coronavirus (COVID-19)(PCR) Negative (Negative) 12/07/21 09:15 Coronavirus 2019 Source Nasal/Nares 12/07/21 09:15 Blood Cultures: No Data to Display Toxicology Panel: No Data to Display Imaging and Studies Imaging and Studies Study information below may be from another EMR and interpreted by another provider. Please see original notes in EMR for more complete details. EKG Summary: 02/26: sinus, anteroseptal q Echocardiogram Summary: 02/2021: LVEF 57%, no valve issues. Anesthesia Assessment and Plan Anesthesia History Personal History: No History of Anesthesia Complications Family History: No Family History of Anesthesia Complications Exercise Tolerance Exercise Tolerance: Metabolic Equivalents>4 Pertinent Negatives Pertinent Negatives: No Symptoms of GERD, No Major Cardiovascular Symptoms or Complaints, No Major Pulmonary Symptoms or Complaints and No History of CVA/TIA Cardiac & Pulmonary Exam Cardiac Exam: Normal S1/S2 Heart Sounds Pulmonary Exam: Wheezing Present Implantable Cardiac Device Does patient have a Pacemaker or an ICD?: No Airway Exam Known Difficult Airway: No Mallampati Class: 4 Mouth Opening: Narrow (< 3cm) Thyromental Distance: Less than 3 cm Neck Range of Motion: Limited ROM Neck Circumference: Thick Teeth Condition: Edentulous ASA Classification ASA Score: ASA 3 Emergency Case?: No NPO Status NPO Status: NPO Clears >2 hours, Solids >8 hours Anesthesia Plan Resuscitation Status: Full Code Anesthesia Technique: General Anesthesia Airway Planned: LMA Monitors Used: Standard Monitors
--- NOTE | 2021-12-09 07:00 | DI.RAD_ITS ---
Exam(s) XR HIP LT IN OR EXAM: XR HIP LT IN OR CLINICAL HISTORY: LEFT TROCHANTERIS BURSITITS/ FX DISTAL FEMUR. TECHNIQUE: 2D and realtime digital imaging was performed. COMPARISON: CR XR FEMUR LT from 11/12/2021 FINDINGS: Fluoroscopy was provided in the OR for Dr. Garff. Please see procedure note for details. Fluoro time 22.4 seconds. RADIATION DOSE DELIVERED: nate Ramsey=6.61 mGy
--- NOTE | 2021-12-09 07:13 | HPE_ITS ---
Assessment and Plan Assessment and plan (1) Trochanteric bursitis of left hip: Status: Acute (2) Postoperative heterotopic ossification: Status: Acute Assessment and plan: Brown is a 56-year-old who has a known bursitis of the left hip from previous trauma and heterotopic ossification. He is here today for excision of the bursa, IT band lengthening, and heterotopic ossification. I reviewed this with her. I did address his concerns about pain afterwards. I also reviewed the risk of the procedure to include bleeding, infection, pain, stiffness, hip instability, recurrence, continued symptoms. Despite these risk, he elects to proceed. History of Present Illness History of Present Illness Chief Complaint: Left Hip Bursitis, HO Narrative: Brown is a 56-year-old who has previous trauma to the left hip requiring multiple surgeries at [facility] which resulted in Jacob vesication. He continues have some pain about the lateral aspect of the left hip. He did respond very well to an injection therefore I offered surgical debridement of the trochanteric bursa, IT band lengthening or tenotomy as well as heterotopic ossification. He is anxious about proceeding due to pain. However, he has continued pain about the left hip. He also continues have pain about the left knee which we will move forward with knee replacement once we have adequate healing of the fracture. Review of Systems All systems reviewed & are unremarkable except as noted in HPI and below PFSH All Active Problems Trochanteric bursitis of left hip (Acute) Postoperative heterotopic ossification (Acute) Closed comminuted intra-articular fracture of distal end of femur (Acute) Obesity (Chronic) he needs to quit drinking soda Chronic pain (Acute 09/15/16) Diabetes type 2, uncontrolled (Chronic 02/24/15) Gout (Acute 04/19/14) GERD (gastroesophageal reflux disease) (Chronic 11/25/14) Smoker (Chronic 06/05/13) Acute CVA (cerebrovascular accident) (Acute) Hwjjfj-xr-vapzunchn syndrome (Acute) Non-compliance (Chronic) Pain in left hip (Acute) BCC (basal cell carcinoma), face (Acute ~11/12/19) 11/12/19 [facility] [place] (LEFT [place]EK) Viral illness (Acute) Rule out coronavirus 19 Lesion of right [place] kidney (Acute) Skin lesion (Acute) Abdominal pain (Acute) Diabetes mellitus (Chronic) Hypertension (Chronic) Well adult (Chronic) health compromised by worsening obesity History of open reduction and internal fixation (ORIF) procedure (Acute) History of shoulder surgery (Acute) Status post carpal tunnel release (Acute) Dental abscess (Acute 05/31/17) Facial cellulitis (Acute 05/31/17) Surgical History Fracture, Open Treatment 10/30/14 [facility] [place]; ORIF L HIP REDUCTION AND ORIF L FEMUR FX Open Carpal Tunnel release b/l shoulder repair left Family History Mother No problems noted. Father Diabetes Essential hypertension Heart disease Hyperlipidemia Stroke Cancer Sister Asthma Maternal Grandfather Alcohol abuse Depression Paternal Grandfather , 90 No problems noted. Maternal Grandmother , 96 Asthma Diabetes Heart disease Paternal Grandmother , 78 Diabetes Essential hypertension Stroke Daughter Substance abuse Essential hypertension Depression Social History Smoking/Tobacco Use Status: Current every day Tobacco Type: cigarettes Tobacco: How many years used: 40 Quit status: considering quitting Second Hand Exposure: Yes Smoking risk assessment performed?: Yes Alcohol Intake: former Drug use: Daily Substance use type: marijuana Details: marijuana: t-1, pt. uses oil Caregiver/Support person: No Household members: significant other Housing: other Details: mobile home Communication Needs: None Pets and animals: Yes Pets and animals: dog(s) Sexually active: Yes Do you think of yourself as: straight/heterosexual Current gender identity: male What is your relationship status?: living with partner How often do you talk on the phone with friends or family?: three or more times per week How often do you get together with friends or relatives?: once per week How often do you attend religious or taoist services?: decline to answer Do you belong to any clubs or organized social groups?: decline to answer Panel score (0-1 are the most socially isolated patients): 2 What type of physical activity do you participate in: decline to answer Duration: < 15 minutes/day Geovanna/Amish: None Special geovanna needs: No Seatbelt use: always Helmet use: Yes Helmet use: sometimes Drive intox or ride w/intox tractor trailer 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: No Do you feel safe at home: Yes Do you feel safe in your relationship?: Yes Additional Social history: unable to assess privately Meds Allergies and Home Medications Allergies Allergy/AdvReac Type Severity Reaction Status Date / Time Penicillins Allergy Unknown unknown Verified 12/08/21 12:59 fentanyl AdvReac Severe Nausea Verified 12/09/21 06:21 Home Medications Medication Instructions Recorded Confirmed Type blood sugar diagnostic (Maximum Balance FoundationTouch #100 ea 11/05/19 12/08/21 Rx Verio test strips) blood-glucose meter (Maximum Balance FoundationTouch #1 ea 11/05/19 12/08/21 Rx Verio Flex Meter) lancets 33 gauge (Maximum Balance FoundationTouch Delica #100 ea 11/05/19 12/08/21 Rx Lancets) lisinopril 20 1 tab PO DAILY #90 tab-caps 01/14/21 12/09/21 Rx mg-hydrochlorothiazide 12.5 mg tablet amlodipine 5 mg tablet 5 mg PO DAILY #90 tabs 03/03/21 12/09/21 Rx colchicine 0.6 mg tablet 0.6 mg PO BID PRN 03/03/21 12/09/21 History flash glucose scanning reader #1 ea 03/03/21 12/08/21 Rx (FreeStyle Corazon 2 [place]) flash glucose sensor (FreeStyle #1 ea 03/04/21 12/08/21 Rx Corazon 2 Sensor kit) lisinopril 20 mg tablet 20 mg PO DAILY #90 tabs 04/10/21 12/09/21 Rx empagliflozin 25 mg tablet 25 mg PO QAM #90 tabs 06/03/21 12/09/21 Rx (Jardiance) acetaminophen 500 mg tablet 1,000 mg PO Q8H PRN pain #90 tabs 07/06/21 12/09/21 Rx albuterol sulfate 90 mcg/actuation 1 - 2 puff inhalation Q6H PRN ##1 09/29/21 12/09/21 Rx aerosol inhaler (ProAir HFA) omeprazole 40 mg capsule,delayed 40 mg PO BID dyspepsia #180 10/26/21 12/09/21 Rx release tab-caps celecoxib 200 mg capsule 200 mg PO DAILY PRN pain #90 caps 11/12/21 12/09/21 Rx oxycodone 10 mg tablet 10 mg PO BID PRN pain #60 tabs 11/23/21 12/09/21 Rx naproxen 500 mg tablet 500 mg PO DAILY 12/09/21 12/09/21 History Exam Resp Effort & Inspection: normal respiratory effort Auscultation: clear to auscultation bilaterally Cardio Rate: regular rate Rhythm: regular rhythm Results Last Vital Signs Temp 36.4 C L 12/09/21 06:26 Pulse 73 12/09/21 06:26 Resp 18 12/09/21 06:26 BP 137/83 12/09/21 06:26 Pulse Ox 96 12/09/21 06:26
[2021-12-09] MEDS: Lactated Ringers 1,000 ML 80 ML IV (07:25)
[2021-12-09] MEDS: ceFAZolin 2 GM/50 ML BAG IVPB (07:45)
--- NOTE | 2021-12-09 09:49 | W.PM.DSUDISC ---
Discharge Plan Disposition Patient Disposition: HOME Condition: Good Discharge Details Reason For Visit: Left Hip HO Excision Attending Provider: Dariel Graff Primary Care Provider: Bradley Carmichael Home Meds and New Rx's Prescriptions: New indomethacin 75 mg capsule, extended release 75 mg PO DAILY Qty: 7 0RF Continued albuterol sulfate [ProAir HFA] 90 mcg/actuation HFA aerosol inhaler 1 - 2 puff Inhalation Q6H PRN Qty: 1 4RF lisinopril-hydrochlorothiazide 20-12.5 mg tablet 1 tab PO DAILY Qty: 90 3RF Jardiance 25 mg tablet 25 mg PO QAM Qty: 90 3RF Rx Instructions: dose increase 06/03/21 colchicine 0.6 mg tablet 0.6 mg PO BID PRN Rx Instructions: Take twice daily until gone. amlodipine 5 mg tablet 5 mg PO DAILY Qty: 90 3RF (DME) FreeStyle Corazon 2 [place] Misc See Rx Instructions .ROUTE .MEDSUPPLY Qty: 1 0RF Rx Instructions: As directed (DME) FreeStyle Corazon 2 Sensor Kit See Rx Instructions .ROUTE .MEDSUPPLY Qty: 1 5RF Rx Instructions: As directed (DME) lancets [OneTouch Delica Lancets] 33 gauge misc See Rx Instructions .ROUTE .MEDSUPPLY Qty: 100 3RF Rx Instructions: test daily (DME) blood-glucose meter [OneTouch Verio Flex meter] Misc See Rx Instructions .ROUTE .MEDSUPPLY Qty: 1 0RF Rx Instructions: test daily (DME) OneTouch Verio test strips Strip See Rx Instructions .ROUTE .MEDSUPPLY Qty: 100 3RF Rx Instructions: test daily lisinopril 20 mg tablet 20 mg PO DAILY Qty: 90 3RF omeprazole 40 mg capsule,delayed release(DR/EC) 40 mg PO BID Qty: 180 3RF acetaminophen 500 mg tablet 1,000 mg PO Q8H PRN (Reason: pain) Qty: 90 3RF Changed oxycodone 10 mg tablet 10 mg PO Q4H MDD 2 tabs PRN (Reason: pain) Qty: 60 0RF Held celecoxib 200 mg capsule 200 mg PO DAILY PRN (Reason: pain) Qty: 90 3RF Hold Instructions: Resume on 12/16/21. Hold while taking Indomethacin Discontinued naproxen 500 mg Tablet 500 mg PO DAILY Discharge Instructions Additional Instructions: Hip Bursa Discharge Instructions Activity: You may move and walk as tolerated but always use two crutches or a walker until instructed otherwise to help offload the muscles and the soft tissue repair. You should try to take short walks a few times a day. You have no restrictions on movement or positioning, but do not try to force what you do. You will find some stiffness and weakness. Do not try to strengthen this too early, continue to practice walking. Dressing: Keep the surgical dressing in place for at least one week. After the first week it may be removed and replace with light gauze and tape or nothing. It may get wet after 3 days but avoid soaking the dressing. If it gets wet, just lightly pat dry. Medications: - You should take Tylenol as your primary pain control medications - You have been prescribed Indomethacin to take 75mg daily for one week to help prevent recurrence of the extra bone. YOu may then resume Celecoxib 200mg twice daily as needed for pain. - You have been prescribed a stronger pain medication Oxycodone for breakthrough pain, taken in place of your chronic Oxycodone. - If you have constipation you should take Colace or Miralax (both [id number]). It takes most people 3-4 days to have a bowel movement. Follow-up: 2 weeks Referrals: Dariel Graff MD [ [facility] STAFF PHYSICIAN] - Activity:: Walker/Crutches Shower/Bathe:: 72 hours Diet:: As Tolerated Discharge Orders Discharge Orders: Discharge Order (Routine); Ordered 12/09/21 Ordered By: Dariel Graff DS: Diagnosis Discharge Diagnosis (1) Trochanteric bursitis of left hip: Status: Acute (2) Postoperative heterotopic ossification: Status: Acute
[2021-12-09] MEDS: HYDROmorphone 2 MG/ML VIAL IVP (10:51)
--- NOTE | 2021-12-09 11:23 | W.PM.OP ---
Date of service: 12/09/21 Time of Service: 10:00 Operative Note Operative Note DATE OF PROCEDURE: 12/09/21 PRE-OP DIAGNOSIS: Left Hip Trochanteric Bursitis, Heterotopic Ossification POST-OP DIAGNOSIS: same PROCEDURE: Open Debridement/Excision of LEFT Trochanteric Bursa and Iliotibial Band Lengthening with excision of heterotopic ossification from left hip along with repair of abductor musculature SURGEON: Dariel Graff ARCHITECTURAL WOOD MODEL MAKER: Mikael Moreno ANESTHESIA TYPE: General LMA/ETT Refer to Anesthesia Record ESTIMATED BLOOD LOSS: 250 PATHOLOGY: none sent COMPLICATIONS: None Patient was transported to: PACU Patient's condition: stable Indications: Brown is a 56-year-old male who I have seen for recurrent symptoms of lateral hip pain. He had previous trauma to his left hip involving pelvic fractures and eventual multiple plate fixation with hip replacement. He created significant amount of heterotopic ossification and has had stiffness of the left hip with lateral based pain. A diagnosis of trochanteric bursitis was made and he responded well to an injection. Conservative treatment options were employed first. However, pain continued. Given the location of the heterotopic ossification and is likely contribution to his lateral based hip symptoms after failure of conservative treatment options, I recommended surgical intervention. I reviewed the technical details of the surgery. I reviewed the risk of the surgery to include bleeding, infection, pain, stiffness, damage to nerves and vessels, damage to muscles and tendons, blood clot. Despite these risks, the patient desired to proceed. Findings: The iliotibial band was significantly tight over prominent bone underlying the IT band although it had a somewhat atrophic appearance approximately. The bursa was inflamed and excised and debrided. A large amount of heterotopic ossification was removed from the lateral hip from just above the greater trochanter all the way to the pelvis. The musculature and abductor tendons were repaired to each other as well as to the tip of the greater trochanter using a single 5.0 mm Fastin anchor. Iliotibial band was lengthened with a cruciate style tenotomy. Procedure Description: Brown was greeted in the preoperative holding area. The identity was confirmed with the correct site and side. The consent was reviewed with the patient and signed. History and physical was updated. The patient was taken back to the operating room. A general anesthetic was administered. The patient was then positioned into the right lateral decubitus position for access to the left hip. All bony prominences well-padded. The left hip was prepped with ChloraPrep and draped in a standard fashion. Prophylactic antibiotics in the form of Cefazolin were administered. A timeout was performed for safe surgery. An approximately 10 cm incision was made overlying the posterior lateral hip through the previous incision. The skin was incised sharply. Bleeding was stopped with light cautery. The iliotibial band was identified and cleared for better visualization. It was noted to be quite taut against the lateral femur. The iliotibial band was then incised longitudinally extending into the gluteus fascia and extending distally along the IT band. The proximal aspect of the IT band and gluteus fascia was somewhat atrophic from the previous surgeries. This was split bluntly and a Charnley retractor was inserted. We had excellent visualization of the lateral femur and the trochanteric bursa. There was notable bursitis with an enlarged and inflamed bursa. This was excised sharply with electrocautery and remnants debrided with a rongeur. The normal anatomy was distorted given the amount of bony prominence. The abductor tendons were thinned and distorted laterally with dense bone underneath. I then made a longitudinal incision within the abductor tendons and within the muscles to expose the underlying bone. I stayed on bone and elevated off soft tissue attachments to the bone itself. I utilized fluoroscopy to identify the junction between the point lay ira greater trochanter and the heterotopic ossification. This amount of bone was quite significant. I was unable to remove in 1 piece and therefore I used an osteotome to separate this into smaller pieces removing each segment is a smaller piece. Once again fluoroscopy is utilized to help identify point lay ira bone and heterotopic ossification. My main goal was to remove the bone laterally which was preventing some hip abduction and hip rotation and also likely contributing to the trochanteric bursitis type symptoms. Once this bone was removed the wound was thoroughly irrigated and a fluoroscopy was once again confirmed the excision of the heterotopic ossification. Thorough irrigation was then performed with Surgiphor Betadine solution where it stayed for 3 minutes. It was then irrigated out with saline. Any loose pieces of bone were removed. I then placed a single 5.0 mm Mitek Fastin anchor into the tip of the greater trochanter. Utilizing the sutures from this anchor I then reapproximated the abductor musculature and the tendons onto the greater trochanter tip to help anchor their reapproximation and also approximate them to bone. They were repaired side to side as well as down to the bone. The abductor tendon and muscle was then reinforced with #1 Vicryl. All the deeper structures were then injected with a mixture of ropivacaine, epinephrine, clonidine, ketorolac. This was also performed in the soft tissues about the hip. The iliotibial band was then closed with a #1 Vicryl. Once the longitudinal split was closed completely the point of maximal tightness was incised transversely. This was done between sutures allowing for some the longitudinal split open as well creating a cruciate style tenotomy for lengthening. The wound was thoroughly irrigated. The deep tissues were closed with 0 Vicryl followed by 2-0 Vicryl. The skin was closed with a 4-0 Monocryl in a running subcuticular fashion which was reinforced with skin glue and Steri-Strips. The wound was dressed with Mepilex silver dressing. At the end of the case all counts are correct. The patient was transitioned back into the supine position. There were no notable complications. The patient was transferred to the PACU in stable condition.
[2021-12-09] MEDS: oxyCODONE 5 MG TAB 10 MG PO (11:30)
--- NOTE | 2021-12-09 11:48 | W.ANESPOSTOP ---
Postoperative Evaluation Date, Time and Location Date Performed: 12/09/21 Time Performed: 11:48 Patient Location: Day Surgery Unit Vital Signs Most Recent Imported Vital Signs: Most Recent Vital Signs Temp Pulse Resp BP Pulse Ox 36.0 C L 66 18 142/78 H 96 12/09/21 11:13 12/09/21 11:13 12/09/21 11:13 12/09/21 11:13 12/09/21 11:13 Pain Score Most Recent Pain Score: Most Recent Pain Score Pain Level 6 12/09/21 11:13 Assessment Mental Status: Awake (Alert & Oriented to Patient Baseline) Airway and Respiratory Function: Patent airway with normal (patient baseline) respiratory exam Cardiovascular Function: Hemodynamically Stable Hydration Status: Adequately Hydrated Nausea & Vomiting: No Nausea or Vomiting Pain: Pain is tolerable per patient Peripheral Nerve Block: Patient did not receive a nerve block
== END 2021-12-09 12:16 | disposition home or self-care (01) ==
PROVIDERS: PCP Family Medicine; Visit Provider Student in an Organized Health Care Education/Training Program
PROC: (CPT 27048; principal; 2021-12-09 07:30)
DX: M70.62 Trochanteric bursitis, left hip (principal); M61.552 Other ossification of muscle, left thigh
CPT/HCPCS: 27048; 27062; 27025; 27066; C1713; 73501; J0690; J1885; J2370; J2405; J2704

== ENCOUNTER → 2021-12-21 08:58 | Outpatient (BNVA) | payer MEDICARE, SELFPAY | PROVIDERS: PCP Family Medicine; Referring Provider Family Medicine; Visit Provider Physician Assistant | DX: Z47.89 Encounter for other orthopedic aftercare (principal); M70.62 Trochanteric bursitis, left hip ==

== ENCOUNTER 2022-01-14 12:00 | Outpatient (CLI) | payer MEDICARE, SELFPAY ==
--- NOTE | 2022-01-14 11:45 | DI.RAD_ITS ---
Exam(s) XR HIP LT COMPLETE AP PELVIS EXAM: XR HIP LT COMPLETE AP PELVIS CLINICAL HISTORY: F/U DISTAL FEMUR FRACTURE. TECHNIQUE: 2D digital imaging was performed. Two images were obtained. AP pelvis and lateral hip vi ews were obtained. COMPARISON: CR XR HIP LT COMPLETE AP PELVIS from 05/22/2020 FINDINGS: BONES: There are stable post operative changes present. The patient has a stable left total hip arth roplasty. Side plates and screws are seen in the acetabulum. No acute fracture or dislocation. JOINTS: Acetabuli protrusion was again seen. No joint effusion is present. SOFT TISSUE: Atherosclerosis. IMPRESSION: Stable postoperative changes. DATA REPOSITORY: RADIATION DOSE DELIVERED:
== END 2022-01-14 12:01 | disposition home or self-care (01) ==
LOC: DIORS 12:01
PROVIDERS: PCP Family Medicine; Referring Provider Family Medicine; Visit Provider Student in an Organized Health Care Education/Training Program
DX: S72.492A Other fracture of lower end of left femur, initial encounter for closed fracture (principal); X58.XXXA Exposure to other specified factors, initial encounter; M17.12 Unilateral primary osteoarthritis, left knee; M70.62 Trochanteric bursitis, left hip
CPT/HCPCS: 73502

== ENCOUNTER 2022-03-22 13:47 | Outpatient (CLI) | payer MEDICARE, SELFPAY ==
--- NOTE | 2022-03-22 13:45 | RT.EKG_ITS ---
APPROVED REPORT Exam: Resting ECG Reason for Exam: pre op exam Patient Location: O HR:96 bpm ECG Measurements Heart Rate 96 AXIS TX 167 P 63 QRSd 102 QRS 61 QT 377 T 65 QTc 477 Conclusion Sinus rhythm...normal P axis, V-rate 50- 99 Multiple ventricular premature complexes...V complexes w/ short R-R intervls
== END 2022-03-22 13:48 | disposition home or self-care (01) ==
LOC: DI.CM 13:48
PROVIDERS: PCP Family Medicine; Visit Provider Nurse Practitioner Family
DX: Z01.818 Encounter for other preprocedural examination (principal); R94.31 Abnormal electrocardiogram [ECG] [EKG]
CPT/HCPCS: 93010

== ENCOUNTER 2022-03-29 13:24 | Outpatient (CLI) | payer MEDICARE, SELFPAY ==
--- NOTE | 2022-03-29 13:15 | DI.RAD_ITS ---
Exam(s) XR KNEE LT 1V XR STANDING ALIGNMENT EXAM: XR KNEE LT 1V CLINICAL HISTORY: left knee DJD. TECHNIQUE: 2D digital imaging was performed. Standing AP views were performed from the pelvis throu gh the ankles. Lateral view left knee COMPARISON: CR XR KNEE LT 3V AP,LAT,RADHA from 07/03/2021 CR XR FEMUR LT from 11/12/2021 CR XR HIP LT COMPLETE AP PELVIS from 01/14/2022 CR XR STANDING ALIGNMENT from 03/29/2022 FINDINGS: BONES: Fixation plate is again noted along the lateral aspect of the distal femur. There has been co ntinued healing at the distal femoral fracture. No bony destructive lesion is seen. chronic ileal d eformity. Chronic deformity adjacent to the acetabular component and at the proximal portion of the f emur. Leg length discrepancy: None JOINTS: Knees: Mild bilateral medial femoral tibial joint space narrowing. Chondrocalcinosis. The ankle joints are unremarkable. The hip joints: Right unremarkable. Left: Hip prosthesis and adjacent fixation plates in the ileum.S OFT TISSUE: Normal. IMPRESSION: Continued healing at the femoral fracture. Stable appearance of left hip prosthesis. No significant leg length discrepancy. DATA REPOSITORY: RADIATION DOSE DELIVERED:
== END 2022-03-29 13:25 | disposition home or self-care (01) ==
LOC: DIORS 13:25
PROVIDERS: PCP Family Medicine; Referring Provider Family Medicine; Visit Provider Physician Assistant
DX: M17.12 Unilateral primary osteoarthritis, left knee (principal); S72.492A Other fracture of lower end of left femur, initial encounter for closed fracture; X58.XXXA Exposure to other specified factors, initial encounter; U09.9 Post COVID-19 condition, unspecified; R06.09 Other forms of dyspnea; Z01.818 Encounter for other preprocedural examination
CPT/HCPCS: 73560; 77073

== ENCOUNTER 2022-04-02 00:46 | Outpatient (CLI) | payer MEDICARE, SELFPAY ==
--- NOTE | 2022-04-02 08:24 | DI.RAD_ITS ---
Exam(s) XR CHEST 2V PA LATERAL EXAM: XR CHEST 2V PA LATERAL CLINICAL HISTORY: Difficulty breathing/smoker/pre-op,s/p covid, dyspnea, r06.09,U09.9 TECHNIQUE: 2D digital imaging was performed. COMPARISON: CR XR CHEST 2V PA LATERAL from 02/27/2021 FINDINGS: The heart is not enlarged. The lungs are clear and well expanded. No pleural effusion seen. Mediastin al contours appear intact. IMPRESSION: Normal chest. RADIATION DOSE DELIVERED: Total DLP
== END 2022-04-02 01:06 ==
LOC: DI 00:46
PROVIDERS: PCP Family Medicine; Visit Provider Nurse Practitioner Family
DX: R06.09 Other forms of dyspnea (principal); U09.9 Post COVID-19 condition, unspecified
CPT/HCPCS: 71046

== ENCOUNTER 2022-05-07 03:12 | Outpatient (CLI) | payer MEDICARE, SELFPAY ==
[2022-05-07 14:37] LABS: Abs Immature Grans 0.03 10^3/uL (0.0-0.06); Absolute Basophil Count 0.09 10^3/uL (0.0-0.2); Absolute Eosinophil Count 0.09 10^3/uL (0.0-0.7); Basophils % 0.8; Eosinophils % 0.8; HCT 47.3 % (40.0-50.0); HGB 15.8 g/dL (13.5-17.5); Immature Grans % 0.3; Lymphocytes % 32.6; MCH 29.9 pg (27.0-33.0); MCHC 33.4 % (32.0-36.0); MCV 89 fL (80-95); MPV 9.8 fL (8.0-11.0); Neutrophils % 58.5; Platelet Count 255 10^3/uL (130-400); RBC 5.29 10^6/uL (4.36-5.78); RDW 14.9 % (11.8-14.1); RDW-SD 49.4 fL; WBC 11.21 10^3/uL (4.4-10.8)
[2022-05-07 15:08] LABS: Absolute Lymphocyte Count 3.65 10^3/uL (1.2-3.4); Absolute Monocyte Count 0.78 10^3/uL (0.1-0.8); Absolute Neutrophil Count 6.56 10^3/uL (1.2-6.7)
[2022-05-07 15:21] LABS: Hemoglobin A1C 8.6 % (<5.7)
[2022-05-07 16:45] LABS: Anion Gap 9.8 mmol/L (3-11); BUN 21 mg/dL (7-18); CO2 27.2 mmol/L (21.0-32.0); CREATININE 1.1 mg/dL (0.70-1.30); Calcium 9.2 mg/dL (8.5-10.1); Chloride 102 mmol/L (98-107); Estimated GFR 77.81 (mL/min/1.73m2); Glucose 139 mg/dL (74-106); Potassium 3.8 mmol/L (3.5-5.1); Sodium 139 mmol/L (136-145)
== END 2022-05-07 03:13 | disposition home or self-care (01) ==
LOC: LBO 03:13
PROVIDERS: PCP Family Medicine; Visit Provider Student in an Organized Health Care Education/Training Program
DX: M25.562 Pain in left knee (principal); M17.12 Unilateral primary osteoarthritis, left knee; D64.9 Anemia, unspecified; R73.9 Hyperglycemia, unspecified; Z01.818 Encounter for other preprocedural examination; Z01.812 Encounter for preprocedural laboratory examination
CPT/HCPCS: 36415; 80048; 83036; 85025

== ENCOUNTER 2022-07-19 03:14 | Outpatient (CLI) | payer MEDICARE, SELFPAY ==
[2022-07-19 14:26] LABS: HGB 15.6 g/dL (13.5-17.5); MCH 29.2 pg (27.0-33.0); MCHC 31.2 % (32.0-36.0); MCV 94 fL (80-95); MPV 9.7 fL (8.0-11.0); Platelet Count 231 10^3/uL (130-400); RBC 5.34 10^6/uL (4.36-5.78); RDW 14.6 % (11.8-14.1); RDW-SD 51.5 fL; WBC 8.27 10^3/uL (4.4-10.8)
[2022-07-19 14:53] LABS: Anion Gap 5.2 mmol/L (3-11); BUN 20 mg/dL (7-18); CO2 32.8 mmol/L (21.0-32.0); CREATININE 1.2 mg/dL (0.70-1.30); Calcium 9.1 mg/dL (8.5-10.1); Chloride 102 mmol/L (98-107); Estimated GFR 69.66 (mL/min/1.73m2); Glucose 163 mg/dL (74-106); Potassium 4.2 mmol/L (3.5-5.1); Sodium 140 mmol/L (136-145)
[2022-07-20 18:18] LABS: Fructosamine 265 mcmol/L (200 - 285)
== END 2022-07-19 03:15 | disposition home or self-care (01) ==
LOC: LBO 03:14
PROVIDERS: PCP Family Medicine; Visit Provider Student in an Organized Health Care Education/Training Program
DX: M25.562 Pain in left knee (principal); M12.562 Traumatic arthropathy, left knee; Z01.818 Encounter for other preprocedural examination; Z01.812 Encounter for preprocedural laboratory examination
CPT/HCPCS: 36415; 80048; 85027; 82985

== ENCOUNTER 2022-07-27 07:26 | Day surgery (SDC) | payer MEDICARE, SELFPAY ==
[2022-07-27] VITALS (13 sets, daily range): BP systolic 111–143; BP diastolic 53–74; PULSE 60–77; RESP 8–25; TEMP 36.1–36.5; O2SAT 93–100; BMI 32.1
--- NOTE | 2022-07-27 07:28 | DSE_ITS ---
Date of service: 07/27/22 Time of Service: 12:56 DS: Diagnosis Discharge Diagnosis (1) Traumatic arthritis of left knee: Status: Resolved Discharge Plan Disposition Patient Disposition: Home Condition: Good Discharge Details Reason For Visit: Left knee DJD Attending Provider: Dariel Graff Primary Care Provider: Bradley Carmichael Home Meds and New Rx's Prescriptions: New celecoxib [Celebrex] 200 mg capsule 200 mg PO BID PRNQty: 60 0RF Rx Instructions: Take one tablet twice daily for pain and inflammation aspirin 81 mg tablet,delayed release (DR/EC) 81 mg PO BID 30 Days Qty: 60 0RF acetaminophen 500 mg tablet 1,000 mg PO Q8H PRN Qty: 90 0RF Rx Instructions: Take two tablets up to every 8 hours as needed for pain docusate sodium [Colace] 100 mg capsule 100 mg PO BID Qty: 30 0RF gabapentin 300 mg capsule 300 mg PO QHS Qty: 14 0RF Rx Instructions: Take one tablet at bedtime oxycodone 15 mg tablet 15 mg PO Q4H PRN3 Days Qty: 18 0RF Rx Instructions: Take one tablet as needed up to every 4 hours for severe postoperative pain Continued colchicine 0.6 mg tablet 0.6 mg PO BID PRN Rx Instructions: Take twice daily until gone. (DME) FreeStyle Corazon 2 [facility] [place] Rx Instructions .ROUTE .MEDSUPPLY Qty: 1 0RF Rx Instructions: As directed (DME) FreeStyle Corazon 2 Sensor Kit See Rx Instructions .ROUTE .MEDSUPPLY Qty: 1 5RF Rx Instructions: As directed (DME) lancets [OneTouch Delica Lancets] 33 [place] [facility] [place] Rx Instructions .ROUTE .MEDSUPPLY Qty: 100 3RF Rx Instructions: test daily (DME) blood-glucose meter [OneTouch Verio Flex meter] [facility] [place] Rx Instructions .ROUTE .MEDSUPPLY Qty: 1 0RF Rx Instructions: test daily (DME) OneTouch Verio test strips Strip See Rx Instructions .ROUTE .MEDSUPPLY Qty: 100 3RF Rx Instructions: test daily omeprazole 40 mg capsule,delayed release(DR/EC) 40 mg PO BID Qty: 180 3RF lisinopril-hydrochlorothiazide 20-12.5 mg tablet 1 tab PO DAILY Qty: 90 3RF lisinopril 20 mg tablet 20 mg PO DAILY Qty: 90 3RF Jardiance 25 mg tablet 25 mg PO QAM Qty: 90 3RF Rx Instructions: dose increase 06/03/21 Discontinued acetaminophen 500 mg tablet 1,000 mg PO Q8H PRN (Reason: pain) Qty: 90 3RF celecoxib 200 mg capsule 200 mg PO BID Qty: 60 3RF No Action oxycodone 5 mg tablet 5 mg PO Q6H MDD 20mg PRN (Reason: pain) Qty: 112 0RF albuterol sulfate [Ventolin HFA] 90 mcg/actuation HFA aerosol inhaler 2 puff inhalation QID PRN (Reason: shortness of breath or wheezing) Qty: 8.5 2RF Discharge Instructions Additional Instructions: Total Knee Discharge Instructions Activity: The most important activity is to walk and to work on gentle motion (both flexion and extension). You should try to take short walks a few times a day. It is important that when resting you work on keeping the knee straight. Avoid putting a pillow behind the knee as this will encourage flexion. Work on range of motion exercises as provided by Physical Therapy. - Start outpatient physical therapy within 2 weeks. - You should wear the YODIT hose on both legs for 2 weeks. You may remove these at night. You may also use any compression sock in place of the YODIT hose. - Utilize [employer] to review exercises, see videos on exercises and obtain basic information pertaining to your surgery and your recovery. Dressing: Remove the Gene wrap by 2 days after your surgery and put on the YODIT stocking given to you from the hospital. Keep the surgical dressing (underneath the GENE wrap) in place for at least one week. After the first week it may be removed and replaced with light gauze and tape or nothing. The wound and dressing may get wet after 3 days but avoid soaking the dressing or otherwise it will need to be changed. Many people prefer covering the dressing with cling wrap (saran wrap) to minimize it from getting soaked. If it gets wet, just pat dry. If it starts to peel off then it will need to be changed. Medications: - You should take Tylenol and anti-inflammatory Celebrex as your primary pain control medications. If the Celebrex is too expensive or not covered, please call the office for another alternative (Advil/Ibuprofen or Naproxen/Aleve) - You have been prescribed a stronger pain medication Oxycodone for breakthrough pain, take as needed as prescribed. - You take a stomach acid reduction agent Omeprazole at baseline - continue with this medication to help reduce stomach acid and reflux. - You have been prescribed Gabapentin to take at night for restlessness and nerve pain. - You will be taking Aspirin 81mg twice a day for DVT prevention unless instructed otherwise. - If you have constipation you should take Colace (which has been prescribed) or Miralax (which is available [id number]). It takes most people 3-4 days to have a bowel movement. Follow-up: 2 weeks If you have any acute concerns or questions, please do not hesitate to contact the office at [phone]. You may contact Dr. Graff with any questions after hours through the hospital at [phone] or on his cell phone at [phone]. Stand Alone Forms: Anesthesia Discharge Inst., Agusto Oliveira (DSU) Referrals: Dariel Graff MD [ [facility] STAFF PHYSICIAN] - Equipment/Supplies: Walker Activity:: Elevate Remove Dressings/Wound Care:: Do Not Remove Shower/Bathe:: Cover Diet:: As Tolerated Discharge Orders Discharge Orders: Discharge Order (Routine); Ordered 07/27/22 Ordered By: Dariel Graff Discharge Data Discharge Date/Time-TO BE ENTERED AT DEPARTURE: 07/27/22 15:13 Discharge Comment: Pt d/c'd with spouse in personal vehicle. DS: Summary Time Spent with Patient providing and/or coordinating discharge services: Less than 30 minutes Status at Discharge Functional status at discharge: uses cane/walker Overall status at discharge: patient is progressing back to baseline Mental Status: mental status grossly normal Speech and Movement: speech and movement normal Mood: congruent mood Affect: normal affect Exam Psych Mental Status: mental status grossly normal Speech and Movement: speech and movement normal Mood: congruent mood Affect: normal affect DS: Data Vitals/I&O Vitals and I&O: Intake & Output 07/26/22 07/26/22 07/27/22 11:59 23:59 11:59 Weight 212 lb 15.994 oz Data Completed and Pending Labs on day of discharge: Labs from last 24 hours 07/27/22 07:30 COVID-19 Source Pending SARS-CoV-2 (PCR) Pending [facility] All Active Problems (Updated 07/28/22 @ 13:08 by Ann Abdi RN) History of total left knee replacement (Acute 07/27/22) Post-COVID chronic dyspnea (Acute) Difficulty breathing (Acute) Left knee DJD (Acute) Controlled diabetes mellitus (Acute) Trochanteric bursitis of left hip (Acute) s/p open debridement/excision of left trochanteric bursa and iliotibial band lengthening with excision of heterotopic ossification from left hip with repair of abductor musculature 12/09/2021 Postoperative heterotopic ossification (Acute) s/p open debridement/excision of left trochanteric bursa and iliotibial band lengthening with excision of heterotopic ossification from left hip with repair of abductor musculature 12/09/2021 Obesity (Chronic) he needs to quit drinking soda Chronic pain (Acute 09/15/16) Gout (Acute 04/19/14) GERD (gastroesophageal reflux disease) (Chronic 11/25/14) Smoker (Chronic 06/05/13) Acute CVA (cerebrovascular accident) (Acute) Qgzeur-oz-fslapynhx syndrome (Acute) Non-compliance (Chronic) Pain in left hip (Acute) BCC (basal cell carcinoma), face (Acute ~11/12/19) [place] [facility] [place] Viral illness (Acute) Rule out coronavirus 19 Lesion of right [place] kidney (Acute) Skin lesion (Acute) Abdominal pain (Acute) Diabetes mellitus (Chronic) Hypertension (Chronic) Well adult (Chronic) health compromised by worsening obesity History of shoulder surgery (Acute) Status post carpal tunnel release (Acute) Dental abscess (Acute 05/31/17) Facial cellulitis (Acute 05/31/17) Surgical History (Updated 07/28/22 @ 13:08 by Ann Abdi RN) Closed comminuted intra-articular fracture of distal end of femur S/P ORIF: 07/05/2021 Fracture, Open Treatment 10/30/14 [facility] [place] L HIP REDUCTION AND ORIF L FEMUR FX Open Carpal Tunnel release b/l shoulder repair left Family History Mother No problems noted. Father Diabetes Essential hypertension Heart disease Hyperlipidemia Stroke Cancer Sister Asthma Maternal Grandfather Alcohol abuse Depression Paternal Grandfather , 90 No problems noted. Maternal Grandmother , 96 Asthma Diabetes Heart disease Paternal Grandmother , 78 Diabetes Essential hypertension Stroke Daughter Substance abuse Essential hypertension Depression Social History Smoking/Tobacco Use Status: Current every day Tobacco Type: cigarettes Tobacco: How many years used: 40 Quit status: considering quitting Second Hand Exposure: Yes Smoking risk assessment performed?: Yes Alcohol Intake: current Alcohol Intake frequency: holidays/special occasions only Drug use: Daily Substance use type: marijuana Details: last marijuana use 07/26/22-inhalation Caregiver/Support person: No Household members: significant other Housing: other Details: mobile home Communication Needs: None Pets and animals: Yes Pets and animals: dog(s) Sexually active: Yes Do you think of yourself as: straight/heterosexual Current gender identity: male What is your relationship status?: living with partner How often do you talk on the phone with friends or family?: three or more times per week How often do you get together with friends or relatives?: once per week How often do you attend alevism or zoroastrianism services?: decline to answer Do you belong to any clubs or organized social groups?: decline to answer Panel score (0-1 are the most socially isolated patients): 2 What type of physical activity do you participate in: decline to answer Duration: < 15 minutes/day Geovanna/Congregational: None Special geovanna needs: No Seatbelt use: always Helmet use: Yes Helmet use: sometimes Drive intox or ride w/intox commercial driver's license driver: No Do you feel safe at home: Yes Do you feel safe in your relationship?: Yes Time Spent with Patient Time Spent with Patient: <45 minutes Time was spent: preparing to see the patient(eg.review tests), ordering medications,tests, procedures and counseling the patient
[2022-07-27 07:46] LABS: Source Nasal/Nares
[2022-07-27] MEDS: Celecoxib 200 MG CAP 400 MG PO (08:03)
[2022-07-27] MEDS: Acetaminophen 500 MG TAB 1000 MG PO (08:03)
[2022-07-27] MEDS: Lactated Ringers 1,000 ML 80 ML IV (08:05)
[2022-07-27 08:21] LABS: COVID-19 PCR Negative (Negative)
--- NOTE | 2022-07-27 08:28 | ANES.PREOP_ITS ---
General Info Date of Service Date Performed: 07/27/22 Height: 5 ft 8 in Weight: 96 kg Body Mass Index (BMI): 32.1 Surgical Procedure: Operation Date: 07/27/22 09:25 Proposed Procedure Side Surgeon p Knee Total Arthroplasty & Hardware Removal w/ OrthAlign, Cemented PS Left Dariel Graff MD Meds Allergies and Home Medications Allergies Allergy/AdvReac Type Severity Reaction Status Date / Time Penicillins Allergy Unknown unknown Verified 07/27/22 07:50 fentanyl AdvReac Severe Nausea Verified 07/27/22 07:50 semaglutide [From Rybelsus] AdvReac Severe Nausea Verified 07/27/22 07:50 Home Medication Medication Instructions Recorded blood sugar diagnostic (OneTouch #100 ea 11/05/19 Verio test strips) blood-glucose meter (OneTouch #1 ea 11/05/19 Verio Flex Meter) lancets 33 gauge (OneTouch Delica #100 ea 11/05/19 Lancets) colchicine 0.6 mg tablet 0.6 mg PO BID PRN 03/03/21 flash glucose scanning reader #1 ea 03/03/21 (FreeStyle Corazon 2 [place]) flash glucose sensor (FreeStyle #1 ea 03/04/21 Corazon 2 Sensor kit) omeprazole 40 mg capsule,delayed 40 mg PO BID dyspepsia #180 10/26/21 release tab-caps lisinopril 20 1 tab PO DAILY #90 tab-caps 01/19/22 mg-hydrochlorothiazide 12.5 mg tablet albuterol sulfate 90 mcg/actuation 1 - 2 puff inhalation Q6H PRN ##1 03/30/22 aerosol inhaler (ProAir HFA) lisinopril 20 mg tablet 20 mg PO DAILY #90 tabs 05/05/22 empagliflozin 25 mg tablet 25 mg PO QAM #90 tabs 06/17/22 (Jardiance) oxycodone 5 mg tablet 5 mg PO Q6H PRN pain #112 tabs 07/12/22 acetaminophen 500 mg tablet 1,000 mg PO Q8H PRN pain #90 tabs 07/27/22 aspirin 81 mg tablet,delayed 81 mg PO BID 30 days #60 tabs 07/27/22 release celecoxib 200 mg capsule (Celebrex) 200 mg PO BID PRN #60 caps 07/27/22 docusate sodium 100 mg capsule 100 mg PO BID #30 caps 07/27/22 (Colace) gabapentin 300 mg capsule 300 mg PO QHS #14 caps 07/27/22 Current Visit Medications: Current Medications Generic Name Dose Route Start Last Admin Trade Name Freq PRN Reason Stop Dose Admin Acetaminophen 1,000 mg 07/27/22 06:00 07/27/22 08:03 Acetaminophen 500 Mg Tab PO 07/27/22 16:00 1,000 mg PREOP JAY Administration Acetaminophen 1,000 mg 07/27/22 14:00 Acetaminophen 500 Mg Tab PO TID JAY Aspirin 81 mg 07/27/22 20:00 Aspirin E.C. 81 Mg Tabec PO BID JAY Celecoxib 400 mg 07/27/22 06:00 07/27/22 08:03 Celecoxib 200 Mg Cap PO 07/27/22 16:00 400 mg PREOP JAY Administration Celecoxib 200 mg 07/27/22 20:00 Celecoxib 200 Mg Cap PO BID JAY Docusate Sodium 100 mg 07/27/22 07:24 Docusate Sodium 100 Mg Cap PO BID PRN PRN Constipation Gabapentin 300 mg 07/27/22 06:00 Gabapentin 300 Mg Cap PO 07/27/22 16:00 PREOP JAY Gabapentin 300 mg 07/27/22 22:00 Gabapentin 300 Mg Cap PO HS JAY Hydromorphone HCl 0.5 mg 07/27/22 07:24 Hydromorphone 2 Mg/Ml Syr IVP Q2H PRN PRN Tranexamic Acid 1,000 mg/ 60 mls @ 360 mls/hr 07/27/22 06:00 Sodium Chloride IVPB 07/27/22 16:00 PREOP JAY Ringer's Solution 1,000 mls @ 80 mls/hr 07/27/22 06:00 07/27/22 08:05 IV 08/25/22 23:59 80 mls/hr INFUSION JAY Administration Cefazolin Sodium/Dextrose 2 gm in 50 mls @ 100 mls/hr 07/27/22 06:00 Ancef Duplex IVPB 08/25/22 23:59 PREOP JAY Cefazolin Sodium/Dextrose 1 gm in 50 mls @ 100 mls/hr 07/27/22 08:00 Ancef Duplex IVPB Q8H JAY IV Miscellaneous Supplies 1 each 07/27/22 06:00 Iv Access IV 08/25/22 23:59 DIRECTED JAY Ondansetron HCl 4 mg 07/27/22 07:24 Ondansetron 4 Mg/2 Ml Vial IVP Q6H PRN PRN Nausea Oxycodone HCl 0 mg 07/27/22 07:24 Oxycodone 5 Mg Tab PO Q3H PRN PRN Pain Pantoprazole Sodium 40 mg 07/28/22 07:30 Pantoprazole 40 Mg Tabcr PO DAILY@0730 [facility] Polyethylene Glycol 17 gm 07/27/22 07:24 Polyethylene Glycol 3350 17 Gm Packet PO BID PRN PRN Constipation Sodium Chloride 0 ml 07/27/22 06:00 Normal Saline Flush 10 Ml Syr IV 08/25/22 23:59 PRN PRN Sodium Chloride 0 ml 07/27/22 06:00 Normal Saline 10 Ml Vial IJ 08/25/22 23:59 DIRECTED PRN Sterile Water 0 ml 07/27/22 06:00 Water,Injection,Sterile 10 Ml Vial IJ 08/25/22 23:59 DIRECTED PRN PFSH Active Problems Active Problems: Problem Status Onset Code Traumatic arthritis of left knee M12.562 Post-COVID chronic dyspnea R06.09, U09.9 Difficulty breathing R06.89 Left knee DJD M17.12 Controlled diabetes mellitus E11.9 Trochanteric bursitis of left hip M70.62 Postoperative heterotopic ossification M96.89, M61.50 Obesity E66.9 Chronic pain 09/15/16 G89.29 Gout 04/19/14 M10.9 GERD (gastroesophageal reflux disease) 11/25/14 K21.9 Smoker 06/05/13 F17.200 Acute CVA (cerebrovascular accident) I63.9 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 Non-compliance Z91.19 Pain in left hip M25.552 BCC (basal cell carcinoma), face ~11/12/19 C44.310 Viral illness B34.9 Lesion of right [place] kidney N28.9 Skin lesion L98.9 Abdominal pain R10.9 Diabetes mellitus E11.9 Hypertension I10 Well adult History of shoulder surgery Z98.890 Status post carpal tunnel release Z98.890 Dental abscess 05/31/17 K04.7 Facial cellulitis 05/31/17 L03.211 Surgical History Surgical History Closed comminuted intra-articular fracture of distal end of femur S/P ORIF: 07/05/2021 Fracture, Open [place]30/14 [facility] [place] H[place] REDUCTION AND ORIF L FEMUR FX Open Carpal Tunnel release b/l shoulder repair left Tobacco Smoking/Tobacco Use Status: Current every day Tobacco Type: cigarettes Smoking cigarettes per day: 10 Passive smoking exposure: Yes Second hand exposure: Yes Alcohol Alcohol Intake: current Alcohol intake frequency: holidays/special occasions only Substance Use Substance use: Daily Substance use type: marijuana Details: last marijuana use 07/26/22-inhalation Vital Signs and Lab Results Vital Signs Most Recent Vital Signs in EMR: Most Recent Vital Signs Temp Pulse Resp BP Pulse Ox 36.4 C L 77 18 142/71 H 93 07/27/22 07:44 07/27/22 07:44 07/27/22 07:44 07/27/22 07:44 07/27/22 07:44 Point of Care Results Point of Care Results: Finger Stick Blood Glucose 170 07/27/22 07:58 Lab Results Blood Type / Crossmatch: No Data to Display Complete Blood Count: White Blood Count 8.27 10^3/uL (4.4-10.8) 07/19/22 14:20 Red Blood Count 5.34 10^6/uL (4.36-5.78) 07/19/22 14:20 Hemoglobin 15.6 g/dL (13.5-17.5) 07/19/22 14:20 Hematocrit 50.0 % (40.0-50.0) 07/19/22 14:20 Platelet Count 231 10^3/uL (130-400) 07/19/22 14:20 Complete Metabolic Panel: Sodium 140 mmol/L (136-145) 07/19/22 14:20 Potassium 4.2 mmol/L (3.5-5.1) 07/19/22 14:20 Chloride 102 mmol/L (98-107) 07/19/22 14:20 Carbon Dioxide 32.8 mmol/L (21.0-32.0) H 07/19/22 14:20 BUN 20 mg/dL (7-18) H 07/19/22 14:20 Creatinine 1.2 mg/dL (0.70-1.30) 07/19/22 14:20 Est GFR (CKD-EPI 2020) 69.66 (mL/min/1.73m2) 07/19/22 14:20 Calcium 9.1 mg/dL (8.5-10.1) 07/19/22 14:20 Glucose 163 mg/dL (74-106) H 07/19/22 14:20 Liver Function Panel: No Data to Display Coagulation Panel: No Data to Display Cardiac Panel: No Data to Display Arterial Blood Gas: No Data to Display Venous Blood Gas: No Data to Display Pancreas Panel: No Data to Display Thyroid Panel: No Data to Display Infectious Disease: Coronavirus (COVID-19)(PCR) Negative (Negative) 07/27/22 07:41 Coronavirus 2019 Source Nasal/Nares 07/27/22 07:41 Blood Cultures: No Data to Display Toxicology Panel: No Data to Display Imaging and Studies Imaging and Studies Study information below may be from another EMR and interpreted by another provider. Please see original notes in EMR for more complete details. EKG Summary: 02/26: sinus, anteroseptal q Echocardiogram Summary: 02/2021: LVEF 57%, no valve issues. Anesthesia Assessment and Plan Anesthesia History Personal History: PONV Family History: No Family History of Anesthesia Complications Exercise Tolerance Exercise Tolerance: Metabolic Equivalents>4 Cardiac & Pulmonary Exam Cardiac Exam: Normal S1/S2 Heart Sounds Pulmonary Exam: Clear Bilateral Breath Sounds Implantable Cardiac Device Does patient have a Pacemaker or an ICD?: No Airway Exam Known Difficult Airway: No Mallampati Class: 4 Mouth Opening: Narrow (< 3cm) Thyromental Distance: Less than 3 cm Neck Range of Motion: Limited ROM Neck Circumference: Thick Teeth Condition: Edentulous ASA Classification ASA Score: ASA 3 Emergency Case?: No NPO Status NPO Status: NPO Clears >2 hours, Solids >8 hours Anesthesia Plan Resuscitation Status: Full Code Anesthesia Technique: Spinal Anesthesia Airway Planned: Natural Airway Pain Management: Surgeon and patient request nerve block Monitors Used: Standard Monitors
[2022-07-27] MEDS: ceFAZolin 2 GM/50 ML BAG IVPB (09:22)
--- NOTE | 2022-07-27 10:17 | W.ANESNERVE ---
Nerve Block Single Injection Procedure Date and Time Date Performed: 07/27/22 Procedure Start: 08:42 Location Where Procedure Performed Procedure Location: Day Surgery Unit Reason Performed: Postoperative Analgesia Requesting Provider: Dariel Graff Timeout Performed Timeout Performed: Yes Monitoring Used ECG, Blood Pressure, SpO2 and See EMR for corresponding vital signs Sterility Sterility: Hand Hygiene, Surgical Cap, Surgical Mask, Sterile Gloves and Chlorhexidine Sedation Given During Procedure Sedation Given (Indicate Dose Given): Versed IV Dose:: 2mg Patient Mental Status Patient Mental Status: Awake Nerve Block 1st Nerve Block: Laterality: Left Block Type: Adductor Canal Ultrasound Image Saved?: Yes Needle / Catheter Used: 100mm SonoPlex II Local Anesthetic Bolus (Indicate Dose Given): Lidocaine used for local infiltration of skin, Injected in 3-5ml increments after negative blood aspiration and Bupivacaine 0.25% Dose:: 15mL Additives (Indicate Dose Given): None Ultrasound: Sterile probe cover and gel used Nerve Stimulator: Not Used Paresthesia: None Procedure Tolerated: No Complications Procedure Outcome: Successful Procedure Comment: Time out completed and patient asked if there were any questions prior to administering sedation. Patient tolerated the procedure well. Performed By: Payton Mead
--- NOTE | 2022-07-27 12:39 | W.PM.OP ---
Date of service: 07/27/22 Time of Service: 11:15 Operative Note Operative Note DATE OF PROCEDURE: 07/27/22 PRE-OP DIAGNOSIS: Left Knee Post-traumatic arthritis POST-OP DIAGNOSIS: same PROCEDURE: Left Total Knee Replacement with Intraoperative Navigation and Hardware Removal SURGEON: Dariel Graff ANESTHESIA TYPE: Spinal Refer to Anesthesia Record PATHOLOGY: none sent TOURNIQUET TIME: 0 COMPLICATIONS: None Patient was transported to: PACU Patient's condition: stable Implants: 1. Depuy Attune Cementless Posterior Stabilized Femoral Component, Size 5 2. Depuy Attune Cementless Rotating Platform Tibial Component, Size 5 3. Depuy Attune 5x8mm PS/RP Poly 4. Depuy Attune Patellar Component, Size 35 Indications: I have seen Brown in clinic for symptoms of LEFT knee arthritis, confirmed with radiographic findings. Brown has exhausted nonoperative methods and was having significant limitations in daily function and desired better function and less pain. I discussed the technical details of a knee replacement. I explained the risks of the procedure to include, but not limited to, bleeding, infection, pain, stiffness, fracture, damage to nerves and vessels, damage to muscles and tendons, loosening, need for repeat procedure, blood clot and cardiopulmonary demise. Despite these risks, he elected to proceed. Findings: There is notable deformity of the trochlea and the patella of the knee. There is some cartilage delamination medially as well as some thinning in the posterior compartment. One of the screws from the sideplate transverse in the very posterior aspect of the notch. Hardware which was in the way of the knee replacement was removed without difficulty and a cementless posterior stabilized knee replacement was performed using navigation. Procedure Description: Brown was greeted in the preoperative holding area where the correct side was identified and marked. The consent was reviewed with the patient and signed. The history and physical was updated. All questions were answered. Preoperative mediacations were administered: Acetaminophen 1000mg, Celebrex 400mg, and Gabapentin 300mg. An adductor canal block was then administered by the anesthesia team in the PACU. He was taken back to the operating room. A spinal anesthestic was then administered. The patient was placed into the supine position on the operating room table. A nonsterile tourniquet was placed high onto the leg. Posts were placed for positioning during the procedure. All bony prominences were well padded. Prophylactic antibiotics in the form of Cefazolin were administered. 1g of Tranxemic Acid was given intravenously within 30 minutes of incision. The left leg was then prepped with Chloraprep and draped in a standard fashion with impervious stockinette. A second prep with Chloraprep was performed prior to application of Iodine impregnated skin protection. A timeout to confirm correct identity, side and site, procedure, allergies, anesthesia, and medical concerns was performed. With the knee in some flexion, the previous midline incision overlying the knee was utilized. Full thickness skin flaps were raised once the extensor mechanism was encountered. These were raised medially and laterally. There is some dense scarring this area which was released. Any bleeding was controlled with electrocautery. Once the extensor mechanism was fully exposed, a medial parapatellar arthrotomy was performed in a flexed position. All bleeding from the arthrotomy and the geniculate arteries was coagulated. A medial subperiosteal peel was performed with electrocautery to the midcoronal plane. An aggressive synovectomy was performed throughout the knee. Additionally adhesions between the extensor mechanism and the femur were also released. The soft tissue overlying the lateral femoral plate was resected. The fat pad was removed while keeping the patellar tendon protected. The headless compression screw was first removed and done so without difficulty. I then remove the 2 mini frag screws from within the trochlea. Then, I removed the 2 distalmost screws of the sideplate. There was a portion of the screw which had penetrated the posterior aspect of the intercondylar notch. The ACL and PCL were resected and the anterior horn of the lateral meniscus was transected. The knee was then flexed with the patella everted. There is noted to be some delamination of the cartilage about the medial femur some irregularity of the patella and the trochlea and the posterior aspect of the medial femur. A single starting pin was then placed 1cm anterior to the PCL insertion and the notch in the direction of the femoral head. The OrthoAlign device was applied over the pin. It was oriented to be in line with the epicondylar axis and the trochlear groove. It was then pinned into place. The navigation computer was then turned on and calibrated. The distal femur cut was set at 2 degrees of varus and 3 degrees of flexion. The distal femur cutting guide then was positioned for a 9mm cut. The distal femur was cut with an oscillating saw while protecting the soft tissues. The tibia was then addressed. The OrthoAlign device was placed over the tibial tubercle and medial tibia and secured into position. Once again, OrthoAlign was calibrated and then set for a 2 degrees varus cut and 4 degrees of posterior slope. With this locked into position, the cut thickness stylus was used to assess cut thickness. The medial side, most involved side, was set for a 7mm cut which corresponded to 9 mm laterally. This was then held in position and pinned into place with 2 additional pins and a cross pin for stability. The medial and lateral collateral ligaments were protected and the cut was performed. With this completed, it was assessed and noted to be of appropriate dimensions. The guide and OrthoAlign was removed. A spacer block was inserted and the knee was brought into extension to ensure enough space was present. The femur was then sized as a size 5. The Orthoalign gap balancing device was then placed in extension. This was used to ensure that the ligaments were properly balanced with up to 2 to 3 mm laxity laterally compared medially. The extension gap was measured as 22mm. There is approximately about 3 mm of difference between the medial lateral sides. I performed some additional releases around the medial aspect of the tibia along with some of the scar tissue around the medial aspect of the femur. The gap balance was once again placed and showed once again about 3 mm of difference between medial lateral sides with a gap space of about 22 mm. The knee was then brought into 90 degrees of flexion and the ligament manager gaming was once again placed. Under the same amount of force the flexion gap was measured. The attending specific jig was placed and the flexion gap was made to match the extension gap. The 4-in-1 cutting guide was the placed. An blair wing was used to confirm appropriate position of the anterior cut to avoid notching. This cutting guide was ensured to be flush on the cut surface and then pinned into place with headed pins. While protecting the soft tissues, quad tendon, and collateral ligaments, the anterior and posterior cuts were performed with a saw. The central two pins were removed and the posterior and anterior chamfers were cut next. The notch-cutting guide was placed. This was pinned to lateralize the femoral component as much as possible while keeping it flush on the cut surface. This was then pinned into position. A saw was used to make the notch cut. A rasp smoothed the cut surfaces. The medial and lateral menisci were removed. A trial femoral component was then inserted, impacted down to the cut surfaces, and the lug holes were drilled. A provisional trial tibial component was placed and the knee was brought through range of motion. The polyethylene was trialed until there was good flexion and extension with excellent stability to the medial and lateral collaterals. The patella was tracking without thumbs. A size 8mm polyethylene component provided the best range of motion and stability without significant hyperextension. The tibial cut surface was fully exposed. The tibia was then sized as a 5. The tibia had been previously marked during trialing to correspond to the center of the tibial component to help with rotation. The trial was aligned to this paul, approximately rotated to the medial 1/3rd of the tibial tubercle. The trial was pinned into place. The tibia was prepared with a reamer and a keel punch and lug holes. The knee was then brought into extension and the patella was measured as 23mm. Using the patellar clamp and cut guide, this was resected to a flat surface with at least 13mm of thickness remaining. The size 35 patella fit the best. This was oriented and then clamped into position. The lugs were drilled. The trial components were removed. The final components were opened on the back table. The periosteal and capsular tissues, especially posteriorly, around the knee were then systematically injected with a periarticular cocktail consisting of 246mg of Ropivacaine, 0.5mg of Epinephrine, 0.08mg of Clonidine, and 30mg of Ketorolac, diluted to 100cc. On the back table, with the implants opened, the cement was mixed. One batch of high viscosity cement was prepared with vacuum assistance. After the cement was ready a small amount was placed on the cut surface of the patella and the patellar button was clamped into position and held. While the cement was hardening, the cementless knee components were placed. Starting with the tibial component, the tibia was subluxed anteriorly and the lug holes of the component were lined up. The tibia was then impacted with an impactor and mallet until the tibial component was in contact with the tibia. Then, the femoral component was inserted. The lug holes were aligned and the component was impacted into position. The final polyethylene was then inserted. The knee was irrigated with Surgiphor Betadine solution. This was allowed to sit in the knee for 3 minutes and then it was thoroughly irrigated out with saline. After the cement had finally cured, approximately 15min, the clamp was removed from the patella and the knee was taken through range of motion. The patella was tracking with a no-thumbs technique. The capsule was then reapproximated with a No. 1 Vicryl at multiple locations. The capsule was finally closed with a No. 2 Stratafix, barbed suture. Deep tissues were then reapproximated with 0 Vicryl and 2-0 Monocryl. The skin was closed with a running 3-0 Monocryl in a subcuticular fashion. This was reinforced with skin glue. A Mepilex silver dressing was applied along with a [id number] DAVONTE wrap. A CryoCuff was applied. Brown was transferred to the hospital bed without difficulty an suffering no apparent complication. Herb has a good prognosis. Physical therapy will start today and without restrictions, weight-bearing as tolerated. Aspirin 81mg BID will be used for DVT prophylaxis.
[2022-07-27] MEDS: Albuterol/Ipratropium 3 ML UPD VIAL UPD (13:50)
--- NOTE | 2022-07-27 14:16 | W.ANESPOSTOP ---
Postoperative Evaluation Date, Time and Location Date Performed: 07/27/22 Time Performed: 14:16 Patient Location: Day Surgery Unit Vital Signs Most Recent Imported Vital Signs: Most Recent Vital Signs Temp Pulse Resp BP Pulse Ox 36.4 C L 63 16 126/74 100 07/27/22 13:05 07/27/22 13:59 07/27/22 13:59 07/27/22 13:05 07/27/22 13:59 Pain Score Most Recent Pain Score: Most Recent Pain Score Pain Level 0 07/27/22 13:05 Assessment Mental Status: Awake (Alert & Oriented to Patient Baseline) Airway and Respiratory Function: Patent airway with normal (patient baseline) respiratory exam Cardiovascular Function: Hemodynamically Stable Hydration Status: Adequately Hydrated Nausea & Vomiting: No Nausea or Vomiting Pain: Pt. Denies Any Pain Peripheral Nerve Block: Regional nerve block not resolved at time of post operative discharge
--- NOTE | 2022-07-27 16:03 | PT.INIE ---
Date of service: 07/27/22 Time of Service: 14:38 PT Notes Visit Reasons: Left knee DJD Physical Therapy Day Surgery Initial Evaluation Date: 07/27/2022 Referring Doctor: CARLINE Rodriguez PT Orders: PT CONSULT: S/P Ortho surgery Precautions: WBAT on left LE with AD. Patient Profile/Admitting Diagnosis: Jose Antonio is a 57-year-old male with traumatic arthritis of the left knee and is status post left total knee arthroplasty on postoperative day 0. Patient is also status post ORIF of left distal femoral fracture on 07/05/2022. PMHX: Surgical History?(Updated 07/20/22 @ 09:29 by CARLINE Craig) Closed comminuted intra-articular fracture of distal end of femur S/P [place]IF: 07/05/2021Fracture, Open [place] [facility] [place] HIP REDUCTION AND ORIF L FEMUR FX Open Carpal Tunnel release b/lshoulder repair left Social History/Home Situation: Lives with significant other Radha in a mobile home with three steps to enter with a rail on one side. Independent with mobility ADl performance prior to surgery. Equipment Owned/DME: None Subjective: Agreeable to PT consult. Reports 2-3/10 pain in the knee. Denies headache, chest pain, and lightheadedness throughout session. Objective: General Observation: Seated on bedside recliner.? DAVONTE wraps to left LE. Cryocuff to left knee. Mental Status: Alert and oriented as to person, place, time, and purpose. Able to pay attention, focus, and respond appropriately. Pain: 2-3/10 in the L knee Vital Signs: WNL as closely monitored by nursing staff ROM: Right Lower Extremity: Hip flexion WFL. Hip abduction WFL. Knee flexion WFL. Knee extension with WFL.? Ankle dorsiflexion WFL. Ankle plantarflexion WFL. Left Lower Extremity: Hip flexion WFL. Hip abduction WFL. Knee flexion 0-90 degrees. Ankle dorsiflexion WFL. Ankle plantarflexion WFL. Strength: Right Lower Extremity: Hip flexors 5/5. Hip abductors 5/5. Knee flexors 5/5. Knee extensors 5/5. Ankle dorsiflexors 4/5. Ankle plantarflexors 4/5. Left Lower Extremity: Hip flexors 4/5. Hip abductors 4/5. Knee flexors 3-/5. Knee extensors 4-/5. Ankle dorsiflexors 4/5. Ankle plantarflexors 4/5. Bed Mobility/Transfers: Sit to stand with standby assist Stand to sit with standby assist Bed to reclining chair standby assist Gait: Instructed patient with level surface ambulation of 150 feet?requiring standby assist using bilateral axillary crutches. Step-through gait pattern. Good quad activation. Had patient wear B shoes with insert on the L side to promote equal leg length Balance: Static Sitting: Normal Dynamic Sitting: Normal Static Standing: Fair Dynamic Standing: Fair Special Tests: Mobility Limitations Standardized Measure [facility] 6 clicks Basic Mobility Inpatient Short Form: Raw Score: 23 CMS Score: 11% deficit? ? ? Informed Consent/Education:? Patient was instructed in purpose of PT consult. HEP instruction and training done with patient and SO on TKA protocol, written copy provided. Assessment: Jose Antonio requires the use of front-wheeled walker for all mobility ADL performance to maximize independence and reduce fall risk.? Patient presents with clinical signs and symptoms consistent with current/admitting diagnoses that have resulted to mobility limitations, gait instability, generalized weakness, and overall ADL decline as demonstrated by the following impairment level findings: 1.? Decreased strength to left knee major muscle groups 2.? Impaired standing balance 3.? Impaired activity tolerance 4.? Limitation of joint range of motion in left knee flexion Impairments are contributing to the following functional limitations: 1.? Difficulty with ambulation without assistive device 2.? Increased completion time for mobility ADL performance 3.? Increased risk for falls 4.? Difficulty with managing steps alone safely Patient is assessed as a 34451 moderate complexity based on the following: History: 56-year-old male with past medical history as indicated above Examination: Demonstrable impairment in strength, balance, and mobility level with underlying impairments and functional limitations as exhibited above as well as deficit score of 42% utilizing the [facility] Mobility Inpatient Short Form Presentation:? Evolving Decision Makin moderate complexity Goals: N/A. PT evaluation want treatment session only for functional mobility training and HEP instruction. Plan of Care/Treatment Plan: N/A. PT evaluation want treatment session only for functional mobility training and HEP instruction. DISCHARGE RECOMMENDATIONS: [] ? Home with no services [] [] ? Home with services [specify] [X] ? Home with outpatient PT.? Home when medically cleared by orthopedic surgeon.? Patient will benefit from outpatient PT services in order to facilitate return to independent community ambulation with least restrictive device.? [] ? SNF for continued rehabilitation [] [] ? [facility] [] [] ? SNF versus LTC based on ability to participate and progress [] TREATMENT CODE/TIME: 32599 x 20 minutes, 32192 x 12 minutes beginning at 14:38 PM. Thank you for the opportunity to participate in the care of this patient. Yovana Noel PT, DPT, CLT [facility] [place], [place]
== END 2022-07-27 15:13 | disposition home or self-care (01) ==
PROVIDERS: PCP Family Medicine; Visit Provider Student in an Organized Health Care Education/Training Program
PROC: (CPT 27447; principal; 2022-07-27 09:15)
DX: M17.32 Unilateral post-traumatic osteoarthritis, left knee (principal); E11.9 Type 2 diabetes mellitus without complications; F17.210 Nicotine dependence, cigarettes, uncomplicated
CPT/HCPCS: 27447; 20985; 20680; C1776; 76942; 87635; 97162; 97530; 94640; J0690; J1100; J2250; J2370; J2405; J7620

== ENCOUNTER 2022-08-02 14:07 | Emergency (ER) | payer MEDICARE, SELFPAY ==
--- NOTE | 2022-08-02 14:00 | RT.EKG_ITS ---
APPROVED REPORT Exam: Resting ECG Reason for Exam: chest pain Patient Location: E HR:81 bpm ECG Measurements Heart Rate 81 AXIS NE 161 P 9 QRSd 89 QRS 61 QT 357 T 73 QTc 415 Conclusion Sinus rhythm...normal P axis, V-rate 60- 99 Inferior infarct, acute...ST>0.10mV, T upright, II III aVF normal sinus rhythm, normal axis, normal intervals, subtle st elevations III aVF, with depressions an teriorlateral, concerning for inferior ischemia
[2022-08-02 14:11] VITALS: BP 143/63; PULSE 89; RESP 18; TEMP 36.9; O2SAT 99
--- NOTE | 2022-08-02 14:15 | DI.RAD_ITS ---
Exam(s) XR PORTABLE CHEST AP EXAM: XR PORTABLE CHEST AP CLINICAL HISTORY: chest pain TECHNIQUE: 2D digital imaging was performed. COMPARISON: CR XR CHEST 2V PA LATERAL from 04/02/2022 FINDINGS: Exam limited by overlying leads. LUNGS: Clear. No pleural abnormality seen. HEART: Normal size. AORTA: Normal diameter. BONES: Unremarkable for age. Soft tissues: Unremarkable. IMPRESSION: No acute findings. DATA REPOSITORY: RADIATION DOSE DELIVERED:
--- NOTE | 2022-08-02 14:15 | RT.EKG_ITS ---
APPROVED REPORT Exam: Resting ECG Reason for Exam: stemi Patient Location: E HR:76 bpm ECG Measurements Heart Rate 76 AXIS AR 170 P 64 QRSd 102 QRS 71 QT 374 T 71 QTc 422 Conclusion Sinus rhythm...normal P axis, V-rate 60- 99 Inferoposterior infarct, acute...ST>.1 inf, <-.1 V1-3 or >.05 V7-9 sinus rhythm, normal acis, normal intervals, ST segment elevation II III aVF, with deep depressions a nterior leads, consistent with inferior/posterior STEMI
[2022-08-02 14:18] VITALS: RESP 20
[2022-08-02 14:34] LABS: Abs Immature Grans 0.05 10^3/uL (0.0-0.06); Absolute Eosinophil Count 0.24 10^3/uL (0.0-0.7); Absolute Neutrophil Count 8.75 10^3/uL (1.2-6.7); Basophils % 0.7; Eosinophils % 1.6; HCT 42.2 % (40.0-50.0); HGB 13.8 g/dL (13.5-17.5); Immature Grans % 0.3; Lymphocytes % 30.2; MCH 29.4 pg (27.0-33.0); MCHC 32.7 % (32.0-36.0); MCV 90 fL (80-95); Monocytes % 8.5; Neutrophils % 58.7; Platelet Count 336 10^3/uL (130-400); RBC 4.69 10^6/uL (4.36-5.78); RDW 14.5 % (11.8-14.1); RDW-SD 47.3 fL; WBC 14.91 10^3/uL (4.4-10.8)
[2022-08-02 14:35] VITALS: O2SAT 98
[2022-08-02 14:35] LABS: Absolute Monocyte Count 1.27 10^3/uL (0.1-0.8)
[2022-08-02] MEDS: Aspirin 81 MG CHEW 324 MG CH (14:37)
[2022-08-02] MEDS: Heparin 5,000 UNITS/ML VIAL 4000 UNITS IVP (14:38)
[2022-08-02] MEDS: Normal Saline 500 ML 1000 ML IV (14:39)
[2022-08-02 14:40] VITALS: O2SAT 98
[2022-08-02] MEDS: Clopidogrel 300 MG TAB PO (14:44)
[2022-08-02] MEDS: Tenecteplase 50 MG KIT IVP (14:44)
[2022-08-02 14:45] VITALS: O2SAT 100
--- NOTE | 2022-08-02 14:47 | ED.GENADUL_ITS ---
Discharge Plan Disposition Patient Disposition: Transfer-Acute Inpatient Care Specific Acute Inpt Facility: [facility] Condition: Serious Discharge Details Chief Complaint: Chest Pain Clinical Impression: ST elevation CO (STEMI) Primary Care Provider: Bradley Carmichael ED Provider: Oleg Delacruz Meds and New Rx's Prescriptions: No Action colchicine 0.6 mg tablet 0.6 mg PO BID PRN Rx Instructions: Take twice daily until gone. (DME) FreeStyle Corazon 2 [place] Misc See Rx Instructions .ROUTE .MEDSUPPLY Qty: 1 0RF Rx Instructions: As directed (DME) FreeStyle Corazon 2 Sensor Kit See Rx Instructions .ROUTE .MEDSUPPLY Qty: 1 5RF Rx Instructions: As directed (DME) lancets [OneTouch Delica Lancets] 33 gauge misc See Rx Instructions .ROUTE .MEDSUPPLY Qty: 100 3RF Rx Instructions: test daily (DME) blood-glucose meter [OneTouch Verio Flex meter] Mis See Rx Instructions .ROUTE .MEDSUPPLY Qty: 1 0RF Rx Instructions: test daily (DME) OneTouch Verio test strips Strip See Rx Instructions .ROUTE .MEDSUPPLY Qty: 100 3RF Rx Instructions: test daily omeprazole 40 mg capsule,delayed release(DR/EC) 40 mg PO BID Qty: 180 3RF lisinopril-hydrochlorothiazide 20-12.5 mg tablet 1 tab PO DAILY Qty: 90 3RF lisinopril 20 mg tablet 20 mg PO DAILY Qty: 90 3RF Jardiance 25 mg tablet 25 mg PO QAM Qty: 90 3RF Rx Instructions: dose increase 06/03/21 albuterol sulfate [Ventolin HFA] 90 mcg/actuation HFA aerosol inhaler 2 puff inhalation QID PRN (Reason: shortness of breath or wheezing) Qty: 8.5 2RF oxycodone 15 mg tablet 15 mg PO Q4H MDD 90mg PRN (Reason: pain) Qty: 30 0RF celecoxib [Celebrex] 200 mg capsule 200 mg PO BID PRNQty: 60 0RF Rx Instructions: Take one tablet twice daily for pain and inflammation aspirin 81 mg tablet,delayed release (DR/EC) 81 mg PO BID 30 Days Qty: 60 0RF acetaminophen 500 mg tablet 1,000 mg PO Q8H PRN Qty: 90 0RF Rx Instructions: Take two tablets up to every 8 hours as needed for pain docusate sodium [Colace] 100 mg capsule 100 mg PO BID Qty: 30 0RF gabapentin 300 mg capsule 300 mg PO QHS Qty: 14 0RF Rx Instructions: Take one tablet at bedtime Medical Decision Making 57-year-old male history of diabetes hypertension obesity, presents with anterior nonexertional chest pain rating to bilateral arms and jaw that began just before arrival. Denies history of CO open-heart surgery or stenting; recent left knee surgery within the last week. Patient noted to be hypertense diaphoretic. No respiratory distress no abdominal pain. Patient normoxic nontachycardic. Initial EKG with subtle ST elevations inferior leads with reciprocal ST segment changes in the lateral leads, over the course of less than a few minutes notable ST segment elevation 2 3 aVF with deep inverted T wave and ST depressions V1 V2 V3 concerning for inferior STEMI/posterior STEMI. Given level patient's discomfort EKG findings clinical presentation and likelihood the patient would not reach a [employer] within 120 minutes, decision was made to initiate tenecteplase therapy, risk and benefits discussed with patient who gave verbal consent. 50 mg IV tenecteplase bolus infused within a couple of minutes patient symptomatology greatly improved; patient was given 4000 units heparin bolus and started on drip of 1000 units/h, was also loaded with clopidogrel 300 p.o. and an order has been placed for atorvastatin 80 mg p.o. 324 mg aspirin p.o. was given upon initial patient arrival. Patient now greatly improved color is improved and resting much more comfortably. Remains hemodynamically stable. Consulted [facility] cardiology who would like to accept patient directly to [facility] [employer] [facility], [facility] has been contacted and a helicopter is in route approximately 47-minute travel time to get to us from a another site. Patient consented for transfer. HPI General Date/Time Provider Initiated Documentation: 08/02/22 14:20 . HPI Narrative: 57-year-old male history of obesity diabetes hypertension, presents with nonexertional anterior chest pain rating to both arms and jaw that began shortly before arrival. Denies shortness of breath denies abdominal pain denies leg swelling or pain. Of note patient did have a recent left total knee performed within the last week. No history of stents or open heart surgery. Related Data Home Medications Medication Instructions Recorded Confirmed blood sugar diagnostic (OneTouch #100 ea 11/05/19 07/26/22 Verio test strips) blood-glucose meter (OneTouch #1 ea 11/05/19 07/26/22 Verio Flex Meter) lancets 33 gauge (OneTouch Delica #100 ea 11/05/19 07/26/22 Lancets) colchicine 0.6 mg tablet 0.6 mg PO BID PRN 03/03/21 07/26/22 flash glucose scanning reader #1 ea 03/03/21 07/26/22 (FreeStyle Corazon 2 [place]) flash glucose sensor (FreeStyle #1 ea 03/04/21 07/26/22 Corazon 2 Sensor kit) omeprazole 40 mg capsule,delayed 40 mg PO BID dyspepsia #180 10/26/21 07/27/22 release tab-caps lisinopril 20 1 tab PO DAILY #90 tab-caps 01/19/22 07/27/22 mg-hydrochlorothiazide 12.5 mg tablet lisinopril 20 mg tablet 20 mg PO DAILY #90 tabs 05/05/22 07/27/22 empagliflozin 25 mg tablet 25 mg PO QAM #90 tabs 06/17/22 07/27/22 (Jardiance) acetaminophen 500 mg tablet 1,000 mg PO Q8H PRN pain #90 tabs 07/27/22 aspirin 81 mg tablet,delayed 81 mg PO BID 30 days #60 tabs 07/27/22 release celecoxib 200 mg capsule (Celebrex) 200 mg PO BID PRN #60 caps 07/27/22 docusate sodium 100 mg capsule 100 mg PO BID #30 caps 07/27/22 (Colace) gabapentin 300 mg capsule 300 mg PO QHS #14 caps 07/27/22 albuterol sulfate 90 mcg/actuation 2 puff inhalation QID PRN 07/28/22 aerosol inhaler (Ventolin HFA) shortness of breath or wheezing #8.5 grams oxycodone 15 mg tablet 15 mg PO Q4H PRN pain #30 tabs 07/30/22 Previous Rx's Medication Instructions Recorded blood sugar diagnostic (OneTouch #100 ea 11/05/19 Verio test strips) blood-glucose meter (OneTouch #1 ea 11/05/19 Verio Flex Meter) lancets 33 gauge (OneTouch Delica #100 ea 11/05/19 Lancets) flash glucose scanning reader #1 ea 03/03/21 (FreeStyle Corazon 2 [place]) flash glucose sensor (FreeStyle #1 ea 03/04/21 Corazon 2 Sensor kit) omeprazole 40 mg capsule,delayed 40 mg PO BID dyspepsia #180 10/26/21 release tab-caps lisinopril 20 1 tab PO DAILY #90 tab-caps 01/19/22 mg-hydrochlorothiazide 12.5 mg tablet lisinopril 20 mg tablet 20 mg PO DAILY #90 tabs 05/05/22 empagliflozin 25 mg tablet 25 mg PO QAM #90 tabs 06/17/22 (Jardiance) acetaminophen 500 mg tablet 1,000 mg PO Q8H PRN pain #90 tabs 07/27/22 aspirin 81 mg tablet,delayed 81 mg PO BID 30 days #60 tabs 07/27/22 release celecoxib 200 mg capsule (Celebrex) 200 mg PO BID PRN #60 caps 07/27/22 docusate sodium 100 mg capsule 100 mg PO BID #30 caps 07/27/22 (Colace) gabapentin 300 mg capsule 300 mg PO QHS #14 caps 07/27/22 albuterol sulfate 90 mcg/actuation 2 puff inhalation QID PRN 07/28/22 aerosol inhaler (Ventolin HFA) shortness of breath or wheezing #8.5 grams oxycodone 15 mg tablet 15 mg PO Q4H PRN pain #30 tabs 07/30/22 Allergies Allergy/AdvReac Type Severity Reaction Status Date / Time Penicillins Allergy Unknown unknown Verified 07/27/22 07:50 fentanyl AdvReac Severe Nausea Verified 07/27/22 07:50 semaglutide [From Rybelsus] AdvReac Severe Nausea Verified 07/27/22 07:50 General Stated Complaint: Chest Pain CHIN: 3 Review of Systems Narrative: Review of Systems Constitutional: negative Eyes: negative ENT: negative Cardiovascular: Chest pain Respiratory: negative Gastrointestinal: negative : negative Musculoskeletal: negative Skin: negative Neurologic: negative Psych: negative PFSH All Active Problems (Updated 08/02/22 @ 15:12 by Oleg Delacruz MD) ST elevation CO (STEMI) (Acute) History of total left knee replacement (Acute 07/27/22) Post-COVID chronic dyspnea (Acute) Difficulty breathing (Acute) Left knee DJD (Acute) Controlled diabetes mellitus (Acute) Trochanteric bursitis of left hip (Acute) s/p open debridement/excision of left trochanteric bursa and iliotibial band lengthening with excision of heterotopic ossification from left hip with repair of abductor musculature 12/09/2021 Postoperative heterotopic ossification (Acute) s/p open debridement/excision of left trochanteric bursa and iliotibial band lengthening with excision of heterotopic ossification from left hip with repair of abductor musculature 12/09/2021 Obesity (Chronic) he needs to quit drinking soda Chronic pain (Acute 09/15/16) Gout (Acute 04/19/14) GERD (gastroesophageal reflux disease) (Chronic 11/25/14) Smoker (Chronic 06/05/13) Acute CVA (cerebrovascular accident) (Acute) Nqewlm-nz-cfitaklaz syndrome (Acute) Non-compliance (Chronic) Pain in left hip (Acute) BCC (basal cell carcinoma), face (Acute ~11/12/19) 11/12/19 [facility] (LEFT CHEEK) Viral illness (Acute) Rule out coronavirus 19 Lesion of right [place] kidney (Acute) Skin lesion (Acute) Abdominal pain (Acute) Diabetes mellitus (Chronic) Hypertension (Chronic) Well adult (Chronic) health compromised by worsening obesity History of shoulder surgery (Acute) Status post carpal tunnel release (Acute) Dental abscess (Acute 05/31/17) Facial cellulitis (Acute 05/31/17) Surgical History (Updated 07/28/22 @ 13:08 by Ann Abdi RN) Closed comminuted intra-articular fracture of distal end of femur S/P ORIF: 07/05/2021 Fracture, Open Treatment 10/30/14 [facility]; ORIF L HIP REDUCTION AND ORIF L FEMUR FX Open Carpal Tunnel release b/l shoulder repair left Family History Mother No problems noted. Father Diabetes Essential hypertension Heart disease Hyperlipidemia Stroke Cancer Sister Asthma Maternal Grandfather Alcohol abuse Depression Paternal Grandfather , 90 No problems noted. Maternal Grandmother , 96 Asthma Diabetes Heart disease Paternal Grandmother , 78 Diabetes Essential hypertension Stroke Daughter Substance abuse Essential hypertension Depression Social History Smoking/Tobacco Use Status: Current every day Tobacco Type: cigarettes Tobacco: How many years used: 40 Quit status: considering quitting Second Hand Exposure: Yes Smoking risk assessment performed?: Yes Alcohol Intake: current Alcohol Intake frequency: holidays/special occasions only Drug use: Daily Substance use type: marijuana Details: last marijuana use 07/26/22-inhalation Caregiver/Support person: No Household members: significant other Housing: other Details: mobile home Communication Needs: None Pets and animals: Yes Pets and animals: dog(s) Sexually active: Yes Do you think of yourself as: straight/heterosexual Current gender identity: male What is your relationship status?: living with partner How often do you talk on the phone with friends or family?: three or more times per week How often do you get together with friends or relatives?: once per week How often do you attend presybeterian or mormon services?: decline to answer Do you belong to any clubs or organized social groups?: decline to answer Panel score (0-1 are the most socially isolated patients): 2 What type of physical activity do you participate in: decline to answer Duration: < 15 minutes/day Geovanna/Holiness: None Special geovanna needs: No Seatbelt use: always Helmet use: Yes Helmet use: sometimes Drive intox or ride w/intox 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 Do you feel safe at home: Yes Do you feel safe in your relationship?: Yes Exam Narrative Exam Narrative: Physical Examination General: alert, awake, cooperative, uncomfortable HEENT: normocephalic, atraumatic; PERRL, EOM intact, conjunctiva normal; no nasal discharge; moist mucous membranes, oral and pharyngeal mucosa normal, tolerating secretions Neck: supple, trachea midline; full ROM Chest: normal to inspection Respiratory: normal respiratory effort, speaking in full sentences, clear to auscultation, no wheezing, rales or rhonchi Cardiac: regular rate, regular rhythm, S1S2 intact, no murmurs rubs or gallops GI: abdomen soft, non-tender, non-distended; no palpable mass or hepatosplenomegaly Skin: Diaphoretic, no lesions, rashes or trauma appreciated Neuro: AAOx3, normal speech, moving all extremities Extremities: Postop dressing left knee clean dry intact postop ecchymosis near knee Psych: Anxious Course Vital Signs Vital signs: Vital Signs Temperature 36.9 C 08/02/22 14:11 Pulse 89 08/02/22 14:11 Respiratory Rate 18 08/02/22 14:11 Blood Pressure 143/63 H 08/02/22 14:11 Pulse Oximetry 99 08/02/22 14:11 Temperature 36.9 C 08/02/22 14:11 Temperature Source Oral 08/02/22 14:11 Pulse 89 08/02/22 14:11 Respiratory Rate 20 08/02/22 14:18 Respiratory Effort Short of Breath 08/02/22 14:18 Respiratory Depth Shallow 08/02/22 14:18 Respiratory Pattern Normal 08/02/22 14:18 Blood Pressure 143/63 H 08/02/22 14:11 Blood Pressure Position Supine 08/02/22 14:11 Pulse Oximetry 100 08/02/22 14:45 Oxygen Delivery Method Nasal Cannula 08/02/22 14:45 Oxygen Flow Rate 1 08/02/22 14:45 Pain Level 4 08/02/22 14:11 Lab/Test Results Lab/Test Results: Laboratory Tests Range/Units 08/02/22 14:20 WBC (4.4-10.8) 10^3/uL 14.91 H RBC (4.36-5.78) 10^6/uL 4.69 Hgb (13.5-17.5) g/dL 13.8 Hct (40.0-50.0) % 42.2 MCV (80-95) fL 90 MCH (27.0-33.0) pg 29.4 MCHC (32.0-36.0) % 32.7 RDW (11.8-14.1) % 14.5 H Plt Count (130-400) 10^3/uL 336 MPV (8.0-11.0) fL 10.0 Immature Gran % 0.3 Neutrophils % 58.7 Lymphocytes % 30.2 Monocytes % 8.5 Eosinophils % 1.6 Basophils % 0.7 Nucleated RBC % (0.0-0.3) % 0.0 Absolute Neutrophils (1.2-6.7) 10^3/uL 8.75 H Absolute Lymphocytes (1.2-3.4) 10^3/uL 4.50 H Absolute Monocytes (0.1-0.8) 10^3/uL 1.27 H Absolute Eosinophils (0.0-0.7) 10^3/uL 0.24 Absolute Basophils (0.0-0.2) 10^3/uL 0.10 Critical Care Time Critical Care Time Critical Care Time: Yes Total Critical Care Time: 30 Attestation: Critical care time spent the bedside assessing patient interpreting labs interpreting imaging, coordinating specialty care in a critically ill patient with STEMI requiring thrombolysis and transfer to tertiary care sullivan with cardiac [employer] Supervisor
[2022-08-02 14:51] LABS: PTT Activated 20.7 sec (21.5-31.9); Prothrombin Time 9.9 sec (9.3-11.0)
--- NOTE | 2022-08-02 15:00 | RT.EKG_ITS ---
APPROVED REPORT Exam: Resting ECG Reason for Exam: stemi Patient Location: E HR:76 bpm ECG Measurements Heart Rate 76 AXIS MA 158 P 37 QRSd 89 QRS 60 QT 376 T 57 QTc 424 Conclusion Sinus rhythm...normal P axis, V-rate 60- 99 ST elevation, consider inferior injury...ST >0.08mV, II III aVF
--- NOTE | 2022-08-02 15:11 | NUR.NOTE ---
Nursing Note: Patient arrived with CP, EKG suggestive of inferior WA. Patient vitally stable, pain 10/10. Patient given 324MG chewable asa. Over course of patient interaction, patient appears pale, diaphoretic with notable EKG changes. Repeat EKG done shows ST segment elevations at 1630. Vital signs remain stable. Patient given 50 mg TNK, 300mg clopidigrel, 4000u heparin bolus and started on continuous infusion of heparin. at 1516, pain has subsided, no longer sweating, EKG ST elevations have diminished. Repeat EKG done. MD Bright at bedside throughout process.
[2022-08-02] MEDS: Atorvastatin 40 MG TAB 80 MG PO (15:46)
[2022-08-02 16:33] LABS: ALT 12 U/L (16-63); AST 6 U/L (15-37); Albumin 3.1 g/dL (3.4-5.0); Alkaline Phosphatase 72 U/L (46-116); Anion Gap 9.8 mmol/L (3-11); BUN 20 mg/dL (7-18); Bilirubin, Total 0.7 mg/dL (0.2-1.0); CO2 27.2 mmol/L (21.0-32.0); CREATININE 1.1 mg/dL (0.70-1.30); Calcium 8.7 mg/dL (8.5-10.1); Chloride 104 mmol/L (98-107); Estimated GFR 77.33 (mL/min/1.73m2); Glucose 215 mg/dL (74-106); Magnesium 2.1 mg/dL (1.8-2.4); NT-proBNP 46 pg/mL (<300); Potassium 3.5 mmol/L (3.5-5.1); Sodium 141 mmol/L (136-145); TSH (W/Ref FT4) 0.64 uIU/mL (0.36-3.74); Total Protein 7.2 g/dL (6.4-8.2)
[2022-08-02 16:39] LABS: Troponin I 104 ng/L (<or=60)
--- NOTE | 2022-08-03 16:39 | NUR.NOTE ---
Nursing Note: Accessed patient chart to determine how many EKG orders were in the chart from the ED. There was an outstanding EKG in ordered status. There are no EKG's in the [facility] system that are outstanding. EKG order was deleted.
== END 2022-08-02 16:09 | disposition short-term general hospital (02) ==
PROVIDERS: Emergency Provider Emergency Medicine; PCP Family Medicine
DX: I21.3 ST elevation (STEMI) myocardial infarction of unspecified site (principal); I10 Essential (primary) hypertension; E11.9 Type 2 diabetes mellitus without complications; R61 Generalized hyperhidrosis; Z95.5 Presence of coronary angioplasty implant and graft; Z79.82 Long term (current) use of aspirin
CPT/HCPCS: 36415; 80053; 80307; 93005; 96365; 96375; 99291; 71045; 83735; 83880; 84443; 84484; 85025; 85610; 85730; 93010; J1644; J3101

== ENCOUNTER 2022-08-09 06:11 | Emergency (ER) | payer MEDICARE, SELFPAY ==
[2022-08-09] VITALS (76 sets, daily range): BP systolic 125–160; BP diastolic 55–77; PULSE 76–99; RESP 9–27; TEMP 36.6; O2SAT 85–100
--- NOTE | 2022-08-09 06:15 | DI.CT_ITS ---
Exam(s) CT ABDOMEN PELVIS W EXAM: CT ABDOMEN PELVIS W CLINICAL HISTORY: constipated, nauseous. TECHNIQUE: Imaging Protocol: Axial computed tomography images with coronal and sagittal reformatted images were created and reviewed CONTRAST MATERIAL: Intravenous: Omnipaque-350 100cc Oral: None COMPARISON: CT CT BRAIN CTA from 02/27/2021 FINDINGS: VISUALIZED LUNG BASES: Calcified pleural plaque or enhancing pleural over the right lung base posteri or basal segment right lower lobe region. No pleural effusions.. ABDOMEN: There is no ascites. LIVER: There are no focal hepatic lesions evident. No dilated intrahepatic ducts. GALLBLADDER/BILIARY: Tiny densities in the gallbladder may represent calculi or polyps. No gallbladd er wall edema nor pericholecystic fluid. CBD is not dilated. PANCREAS: No evidence of pancreatic mass nor dilatation of the pancreatic duct. SPLEEN: Spleen is not enlarged. No obvious intrasplenic lesions. Splenic and portal veins are paten t. ADRENALS: There is mild thickening of the right adrenal gland. Left adrenal unremarkable. KIDNEYS:Small exophytic cyst off the posterior cortex right kidney measuring 7 mm. No solid renal ma sses. No calculi nor hydronephrosis.. ABDOMINAL AORTA: Atherosclerotic and peripherally calcified but not enlarged. Common iliac arteries are calcified but not enlarged. LYMPH NODES:Slightly enlarged portacaval lymph node noted. No other obvious lymphadenopathy. No mes enteric masses. No omental cake. ABDOMINAL WALL: No evidence of significant anterior abdominal wall nor inguinal hernia. GI: There is no evidence of bowel obstruction, free air, nor abscess. PELVIS: GI: No evidence of appendicitis.No evidence of sigmoid diverticulitis. LYMPH NODES: There is no intrapelvic nor inguinal adenopathy. REPRODUCTIVE: Prostate not enlarged. Seminal vesicles unremarkable. URINARY BLADDER: No calculi nor obvious masses evident OSSEOUS: Left hip prosthesis and fixation plate in left hemipelvis. There is heterotopic bone around the left hip. No significant osseous lesions IMPRESSION: 1. No obvious acute findings in the abdomen pelvis. 2. Left hip arthroplasty as well as this fixation plate in the left hemipelvis and heterotrophic bone . Findings most probably posttraumatic. No acute fractures evident. 3. There is a slightly enlarged portacaval lymph node noted. No other obvious lymphadenopathy. No s plenomegaly. No mesenteric masses. 4. Atherosclerotic abdominal aorta and iliac arteries. No aneurysm. Called by myself to ER 08/09/2022 7:57 a.m. RADIATION DOSE DELIVERED: 983.42mGy.cm Total DLP DATA REPOSITORY: All CT scans at this facility are submitted to the National Radiology Data Registry (NRDR) Dose Index Registry (DIR) with the [employer] (ACR). RADIATION OPTIMIZATION: All CT scans at this facility use at least one of these dose optimization te chniques: automated exposure control; mA and/or kV adjustment per patient size (includes targeted exa ms where dose is matched to clinical indication); or iterative reconstruction.
--- NOTE | 2022-08-09 06:15 | RT.EKG_ITS ---
APPROVED REPORT Exam: Resting ECG Reason for Exam: Ab Pain post STEMI / within 2 weeks Patient Location: E HR:98 bpm ECG Measurements Heart Rate 98 AXIS [place] 154 P 51 QRSd 88 QRS 53 QT 342 T 38 QTc 436 Conclusion Sinus rhythm...normal P axis, V-rate 60- 99 normal sinus rhythm, normal axis, normal intervals, non ischemic
--- NOTE | 2022-08-09 06:33 | W.ED.GENAD ---
Discharge Plan Discharge Details Chief Complaint: Abd Prob Primary Care Provider: Bradley Carmichael ED Provider: Oleg Delacruz Home Meds and New Rx's Prescriptions: No Action colchicine 0.6 mg tablet 0.6 mg PO BID PRN Rx Instructions: Take twice daily until gone. (DME) FreeStyle Corazon 2 Flora Misc See Rx Instructions .ROUTE .MEDSUPPLY Qty: 1 0RF Rx Instructions: As directed (DME) FreeStyle Corazon 2 Sensor Kit See Rx Instructions .ROUTE .MEDSUPPLY Qty: 1 5RF Rx Instructions: As directed (DME) lancets [OneTouch Delica Lancets] 33 gauge misc See Rx Instructions .ROUTE .MEDSUPPLY Qty: 100 3RF Rx Instructions: test daily (DME) blood-glucose meter [OneTouch Verio Flex meter] [facility] See Rx Instructions .ROUTE .MEDSUPPLY Qty: 1 0RF Rx Instructions: test daily (DME) OneTouch Verio test strips Strip See Rx Instructions .ROUTE .MEDSUPPLY Qty: 100 3RF Rx Instructions: test daily omeprazole 40 mg capsule,delayed release(DR/EC) 40 mg PO BID Qty: 180 3RF lisinopril-hydrochlorothiazide 20-12.5 mg tablet 1 tab PO DAILY Qty: 90 3RF Jardiance 25 mg tablet 25 mg PO QAM Qty: 90 3RF Rx Instructions: dose increase 06/03/21 albuterol sulfate [Ventolin HFA] 90 mcg/actuation HFA aerosol inhaler 2 puff inhalation QID PRN (Reason: shortness of breath or wheezing) Qty: 8.5 2RF oxycodone 15 mg tablet 15 mg PO Q4H MDD 90mg PRN (Reason: pain) Qty: 30 0RF aspirin 81 mg tablet,delayed release (DR/EC) 81 mg PO DAILY 30 Days Qty: 60 0RF Rx Instructions: 08/06/22 Per [facility] Cardiology prasugrel 10 mg tablet 10 mg PO DAILY Qty: 30 0RF Rx Instructions: 08/06/22 Per [facility] Cardiology. -hb atorvastatin 80 mg tablet 80 mg PO DAILY Qty: 30 0RF Rx Instructions: 08/06/22 Per [facility] Cardiology. -hb metoprolol succinate 50 mg tablet extended release 24 hr 50 mg PO DAILY Qty: 30 0RF Rx Instructions: 3/31/23 Per [facility] Cardiology. -hb nitroglycerin 0.4 mg tablet, sublingual 0.4 mg sublingual Q5-15M PRN (Reason: chest pain) Qty: 60 0RF Rx Instructions: do not exceed 3 doses per episode 08/06/22 Per [facility] Cardiology. -hb celecoxib [Celebrex] 200 mg capsule 200 mg PO BID PRNQty: 60 0RF Rx Instructions: Take one tablet twice daily for pain and inflammation acetaminophen 500 mg tablet 1,000 mg PO Q8H PRN Qty: 90 0RF Rx Instructions: Take two tablets up to every 8 hours as needed for pain docusate sodium [Colace] 100 mg capsule 100 mg PO BID Qty: 30 0RF gabapentin 300 mg capsule 300 mg PO QHS Qty: 14 0RF Rx Instructions: Take one tablet at bedtime Medical Decision Making 57-year-old male recent STEMI, drug-eluting stent, recent left knee surgery, presents with constipation over the last week no bowel movements per patient however intermittently passing some gas, does describe some nausea and abdominal discomfort. No active vomiting. Abdomen with slight gaseous distention however nontense nontympanic and nonperitoneal. Afebrile nontoxic. Consider ileus versus constipation versus bowel obstruction lower suspicion for cholecystitis appendicitis colitis or diverticulitis. Lower suspicion for aortic pathology. EKG performed normal sinus rhythm normal axis normal intervals nonischemic. Will obtain basic labs and imaging if negative for obstruction and suspicious for simple constipation will provide bowel regimen. Disposition pending reassessment and results 7: 49 patient was comfortably no acute distress, intermittent desaturations while patient is sleeping consider component of sleep apnea. Placed on nasal cannula. Have added chest x-ray. Pending results of CT abdomen pelvis. HPI General Date/Time Provider Initiated Documentation: 08/09/22 06:24. HPI Narrative: 57-year-old male history of coronary disease recent STEMI with cath with drug-eluting stent, recent left knee surgery, presents with constipation for the last week no bowel movement, intermittently passing gas some nausea Related Data Home Medications Medication Instructions Recorded Confirmed blood sugar diagnostic (OneTouch #100 ea 11/05/19 08/09/22 Verio test strips) blood-glucose meter (OneTouch #1 ea 11/05/19 08/09/22 Verio Flex Meter) lancets 33 gauge (OneTouch Delica #100 ea 11/05/19 08/09/22 Lancets) colchicine 0.6 mg tablet 0.6 mg PO BID PRN 03/03/21 08/09/22 flash glucose scanning reader #1 ea 03/03/21 08/09/22 (FreeStyle Corazon 2 Flora) flash glucose sensor (FreeStyle #1 ea 03/04/21 08/09/22 Corazon 2 Sensor kit) omeprazole 40 mg capsule,delayed 40 mg PO BID dyspepsia #180 10/26/21 08/09/22 release tab-caps lisinopril 20 1 tab PO DAILY #90 tab-caps 01/19/22 08/09/22 mg-hydrochlorothiazide 12.5 mg tablet empagliflozin 25 mg tablet 25 mg PO QAM #90 tabs 06/17/22 08/09/22 (Jardiance) acetaminophen 500 mg tablet 1,000 mg PO Q8H PRN pain #90 tabs 07/27/22 08/09/22 celecoxib 200 mg capsule (Celebrex) 200 mg PO BID PRN #60 caps 07/27/22 08/09/22 docusate sodium 100 mg capsule 100 mg PO BID #30 caps 07/27/22 08/09/22 (Colace) gabapentin 300 mg capsule 300 mg PO QHS #14 caps 07/27/22 08/09/22 albuterol sulfate 90 mcg/actuation 2 puff inhalation QID PRN 07/28/22 08/09/22 aerosol inhaler (Ventolin HFA) shortness of breath or wheezing #8.5 grams oxycodone 15 mg tablet 15 mg PO Q4H PRN pain #30 tabs 07/30/22 08/09/22 aspirin 81 mg tablet,delayed 81 mg PO DAILY 30 days #60 tabs 08/06/22 08/09/22 release atorvastatin 80 mg tablet 80 mg PO DAILY #30 tabs 08/06/22 08/09/22 metoprolol succinate 50 mg 50 mg PO DAILY #30 tabs 08/06/22 08/09/22 tablet,extended release 24 hr nitroglycerin 0.4 mg sublingual 0.4 mg sublingual Q5-15M PRN chest 08/06/22 08/09/22 tablet pain #60 tabs prasugrel 10 mg tablet 10 mg PO DAILY #30 tabs 08/06/22 08/09/22 Previous Rx's Medication Instructions Recorded blood sugar diagnostic (OneTouch #100 ea 11/05/19 Verio test strips) blood-glucose meter (OneTouch #1 ea 11/05/19 Verio Flex Meter) lancets 33 gauge (OneTouch Delica #100 ea 11/05/19 Lancets) flash glucose scanning reader #1 ea 03/03/21 (FreeStyle Corazon 2 Flora) flash glucose sensor (FreeStyle #1 ea 03/04/21 Corazon 2 Sensor kit) omeprazole 40 mg capsule,delayed 40 mg PO BID dyspepsia #180 10/26/21 release tab-caps lisinopril 20 1 tab PO DAILY #90 tab-caps 01/19/22 mg-hydrochlorothiazide 12.5 mg tablet empagliflozin 25 mg tablet 25 mg PO QAM #90 tabs 06/17/22 (Jardiance) acetaminophen 500 mg tablet 1,000 mg PO Q8H PRN pain #90 tabs 07/27/22 celecoxib 200 mg capsule (Celebrex) 200 mg PO BID PRN #60 caps 07/27/22 docusate sodium 100 mg capsule 100 mg PO BID #30 caps 07/27/22 (Colace) gabapentin 300 mg capsule 300 mg PO QHS #14 caps 07/27/22 albuterol sulfate 90 mcg/actuation 2 puff inhalation QID PRN 07/28/22 aerosol inhaler (Ventolin HFA) shortness of breath or wheezing #8.5 grams oxycodone 15 mg tablet 15 mg PO Q4H PRN pain #30 tabs 07/30/22 aspirin 81 mg tablet,delayed 81 mg PO DAILY 30 days #60 tabs 08/06/22 release atorvastatin 80 mg tablet 80 mg PO DAILY #30 tabs 08/06/22 metoprolol succinate 50 mg 50 mg PO DAILY #30 tabs 08/06/22 tablet,extended release 24 hr nitroglycerin 0.4 mg sublingual 0.4 mg sublingual Q5-15M PRN chest 08/06/22 tablet pain #60 tabs prasugrel 10 mg tablet 10 mg PO DAILY #30 tabs 08/06/22 Allergies Allergy/AdvReac Type Severity Reaction Status Date / Time Penicillins Allergy Unknown unknown Verified 07/27/22 07:50 fentanyl AdvReac Severe Nausea Verified 07/27/22 07:50 semaglutide [From Rybelsus] AdvReac Severe Nausea Verified 07/27/22 07:50 General Stated Complaint: Abd Prob CHIN: 3 Review of Systems Narrative: Review of Systems Constitutional: negative Eyes: negative ENT: negative Cardiovascular: negative Respiratory: negative Gastrointestinal: Nausea, constipation : negative Musculoskeletal: negative Skin: negative Neurologic: negative Psych: negative PFSH All Active Problems (Updated 08/02/22 @ 15:12 by Oleg Delacruz MD) ST elevation CO (STEMI) (Acute) History of total left knee replacement (Acute 07/27/22) Post-COVID chronic dyspnea (Acute) Difficulty breathing (Acute) Left knee DJD (Acute) Controlled diabetes mellitus (Acute) Trochanteric bursitis of left hip (Acute) s/p open debridement/excision of left trochanteric bursa and iliotibial band lengthening with excision of heterotopic ossification from left hip with repair of abductor musculature 12/09/2021 Postoperative heterotopic ossification (Acute) s/p open debridement/excision of left trochanteric bursa and iliotibial band lengthening with excision of heterotopic ossification from left hip with repair of abductor musculature 12/09/2021 Obesity (Chronic) he needs to quit drinking soda Chronic pain (Acute 09/15/16) Gout (Acute 04/19/14) GERD (gastroesophageal reflux disease) (Chronic 11/25/14) Smoker (Chronic 06/05/13) Acute CVA (cerebrovascular accident) (Acute) Ytkbrr-xq-jeusyxixo syndrome (Acute) Non-compliance (Chronic) Pain in left hip (Acute) BCC (basal cell carcinoma), face (Acute ~11/12/19) 11/12/19 [facility] (LEFT CHEEK) Viral illness (Acute) Rule out coronavirus 19 Lesion of right [place] kidney (Acute) Skin lesion (Acute) Abdominal pain (Acute) Diabetes mellitus (Chronic) Hypertension (Chronic) Well adult (Chronic) health compromised by worsening obesity History of shoulder surgery (Acute) Status post carpal tunnel release (Acute) Dental abscess (Acute 05/31/17) Facial cellulitis (Acute 05/31/17) Surgical History (Updated 08/06/22 @ 18:21 by Grace Ramirze RN) Closed comminuted intra-articular fracture of distal end of femur S/P ORIF: 07/05/2021 Fracture, Open Treatment 10/30/14 [facility]; ORIF L HIP REDUCTION AND ORIF L FEMUR FX History of percutaneous coronary intervention 07/2022 at [facility] Open Carpal Tunnel release b/l S/P cardiac catheterization 07/2022 [facility] shoulder repair left Family History Mother No problems noted. Father Diabetes Essential hypertension Heart disease Hyperlipidemia Stroke Cancer Sister Asthma Maternal Grandfather Alcohol abuse Depression Paternal Grandfather , 90 No problems noted. Maternal Grandmother , 96 Asthma Diabetes Heart disease Paternal Grandmother , 78 Diabetes Essential hypertension Stroke Daughter Substance abuse Essential hypertension Depression Social History Smoking/Tobacco Use Status: Current every day Tobacco Type: cigarettes Tobacco: How many years used: 40 Quit status: considering quitting Second Hand Exposure: Yes Smoking risk assessment performed?: Yes Alcohol Intake: current Alcohol Intake frequency: holidays/special occasions only Drug use: Daily Substance use type: marijuana Details: last marijuana use 07/26/22-inhalation Caregiver/Support person: No Household members: significant other Housing: other Details: mobile home Communication Needs: None Pets and animals: Yes Pets and animals: dog(s) Sexually active: Yes Do you think of yourself as: straight/heterosexual Current gender identity: male What is your relationship status?: living with partner How often do you talk on the phone with friends or family?: three or more times per week How often do you get together with friends or relatives?: once per week How often do you attend buddhism or sabianism services?: decline to answer Do you belong to any clubs or organized social groups?: decline to answer Panel score (0-1 are the most socially isolated patients): 2 What type of physical activity do you participate in: decline to answer Duration: < 15 minutes/day Geovanna/Muslim: None Special geovanna needs: No Seatbelt use: always Helmet use: Yes Helmet use: sometimes Drive intox or ride w/intox cmv driver: No Do you feel safe at home: Yes Do you feel safe in your relationship?: Yes Exam Narrative Exam Narrative: Physical Examination General: alert, awake, cooperative, mildly uncomfortable HEENT: normocephalic, atraumatic; PERRL, EOM intact, conjunctiva normal; no nasal discharge; moist mucous membranes, oral and pharyngeal mucosa normal, tolerating secretions Neck: supple, trachea midline; full ROM Chest: normal to inspection Respiratory: normal respiratory effort, speaking in full sentences, clear to auscultation, no wheezing, rales or rhonchi Cardiac: regular rate, regular rhythm, S1S2 intact, no murmurs rubs or gallops GI: abdomen soft, non-tender, mild gaseous distention, nontympanic nontense, nonperitoneal; no palpable mass or hepatosplenomegaly Skin: no lesions, rashes or trauma appreciated Neuro: AAOx3, normal speech, moving all extremities Psych: Appropriate mood and affect Course Vital Signs Vital signs: Vital Signs Temperature 36.6 C 08/09/22 06:17 Pulse 99 H 08/09/22 06:17 Respiratory Rate 24 08/09/22 06:17 Blood Pressure 160/77 H 08/09/22 06:17 Pulse Oximetry 98 08/09/22 06:17 Temperature 36.6 C 08/09/22 06:17 Temperature Source Oral 08/09/22 06:17 Pulse 99 H 08/09/22 06:17 Respiratory Rate 24 08/09/22 06:17 Respiratory Effort Normal 08/09/22 06:20 Blood Pressure 160/77 H 08/09/22 06:17 Blood Pressure Position Supine 08/09/22 06:17 Pulse Oximetry 98 08/09/22 06:17 Oxygen Delivery Method Room Air 08/09/22 06:17 Oxygen Flow Rate 0 08/09/22 06:17 Pain Level 6 08/09/22 06:17
[2022-08-09] MEDS: Ondansetron 4 MG/2 ML VIAL IVP (06:37)
[2022-08-09] MEDS: Normal Saline 500 ML 1000 ML IV (06:37)
[2022-08-09 06:39] LABS: Abs Immature Grans 0.04 10^3/uL (0.0-0.06); Absolute Basophil Count 0.09 10^3/uL (0.0-0.2); Absolute Monocyte Count 0.94 10^3/uL (0.1-0.8); Basophils % 0.7; Eosinophils % 1.3; HCT 39.2 % (40.0-50.0); HGB 13.2 g/dL (13.5-17.5); Immature Grans % 0.3; MCH 29.9 pg (27.0-33.0); MCHC 33.7 % (32.0-36.0); MCV 89 fL (80-95); MPV 9.6 fL (8.0-11.0); Neutrophils % 67.7; Platelet Count 483 10^3/uL (130-400); RBC 4.42 10^6/uL (4.36-5.78); RDW 14.3 % (11.8-14.1); RDW-SD 46.2 fL; WBC 13.47 10^3/uL (4.4-10.8)
[2022-08-09 06:42] LABS: Absolute Eosinophil Count 0.18 10^3/uL (0.0-0.7); Absolute Neutrophil Count 9.12 10^3/uL (1.2-6.7)
[2022-08-09 07:12] LABS: ALT 16 U/L (16-63); AST 11 U/L (15-37); Albumin 3.6 g/dL (3.4-5.0); Alkaline Phosphatase 99 U/L (46-116); BUN 23 mg/dL (7-18); Bilirubin, Total 1.1 mg/dL (0.2-1.0); CREATININE 1.4 mg/dL (0.70-1.30); Calcium 9.6 mg/dL (8.5-10.1); Chloride 97 mmol/L (98-107); Glucose 243 mg/dL (74-106); Potassium 3.8 mmol/L (3.5-5.1); Sodium 141 mmol/L (136-145); Total Protein 7.9 g/dL (6.4-8.2)
--- NOTE | 2022-08-09 07:15 | DI.RAD_ITS ---
Exam(s) XR CHEST 2V PA LATERAL EXAM: XR CHEST 2V PA LATERAL CLINICAL HISTORY: recent stemi, hypoxia. TECHNIQUE: 2D digital imaging was performed. COMPARISON: CR XR PORTABLE CHEST AP from 08/02/2022 FINDINGS: 2 views: Thin catheter noted over the right hemithorax questionable significance. Heart size is normal. The mediastinum is not widened. Lungs are clear. No infiltrates nor pleural effusions. Right chest wall deformity again noted including what appears to be healing or healed fracture of the right 4th rib and pseudoarticulation between the right 5th and 6th ribs and 7th ribs. IMPRESSION: No acute pulmonary findings. Right chest wall findings as above, unchanged. DATA REPOSITORY: RADIATION DOSE DELIVERED:
--- NOTE | 2022-08-09 07:37 | NUR.NOTE ---
pt noted to be desating to the mid 80's on room air, at one point reaching 79%. 2L NC applied with good effect at 96%. MD Delacruz aware
[2022-08-09] MEDS: Omnipaque 350 MG/ML 100 ML BTL IJ (07:40)
[2022-08-09] MEDS: Normal Saline - Diluent 50 ML VIAL IJ (07:41)
--- NOTE | 2022-08-09 08:07 | DI.VRAD_ITS ---
PROCEDURE INFORMATION: Exam: CT Abdomen And Pelvis With Contrast Exam date and time: 08/09/2022 7:36 AM Age: 57 years old Clinical indication: Constipation and nausea TECHNIQUE: Imaging protocol: Computed tomography of the abdomen and pelvis with contrast. Contrast material: 350; Contrast volume: 100 ml; Contrast route: INTRAVENOUS (IV); COMPARISON: CT ABDOMEN PELVIS W 04/18/2019 2:16 PM FINDINGS: Liver: The liver is homogeneous and is not enlarged. Gallbladder and bile ducts: No calcified gallstones, gallbladder wall thickening, or pericholecystic inflammation. No biliary ductal dilation. Pancreas: No pancreatic mass. No peripancreatic inflammation. No pancreatic ductal dilation. Spleen: The spleen is homogeneous and is not enlarged. Adrenal glands: No adrenal mass. Kidneys and ureters: No hydronephrosis. No nephrolithiasis. Small exophytic lesion from the posterior right kidney. Stomach and bowel: No bowel obstruction or diverticulitis. Appendix: The appendix has a normal caliber. No periappendiceal inflammation. Intraperitoneal space: No ascites or pneumoperitoneum. Vasculature: No abdominal aortic aneurysm. The mesenteric arteries are patent. The mesenteric, portal, and hepatic veins are patent. Lymph nodes: No pathologically enlarged lymph nodes. Urinary bladder: No urinary bladder calculus or wall thickening. Reproductive: Unremarkable as visualized. Bones/joints: Prior left hip arthroplasty and left pelvic ORIF. Soft tissues: Tiny umbilical hernia containing fat. IMPRESSION: 1. No bowel obstruction or diverticulitis. 2. Normal appendix. Dictated and Authenticated by: Mckinley Garcia MD. Ordering:SEHELA Dejesus MD
--- NOTE | 2022-08-09 08:08 | DI.VRAD_ITS ---
PROCEDURE INFORMATION: Exam: XR Chest Exam date and time: 08/09/2022 7:44 AM Age: 57 years old Clinical indication: Recent stemi, hypoxia TECHNIQUE: Imaging protocol: Radiologic exam of the chest. Views: 2 views. COMPARISON: CR XR PORTABLE CHEST AP 08/02/2022 2:40 PM FINDINGS: Lungs: No pneumonia or pulmonary edema. Pleural spaces: No pleural effusion or pneumothorax. Heart/Mediastinum: The cardiac silhouette is not enlarged. The mediastinal contours are normal. Bones/joints: There are multilevel bridging osteophytes in the spine. Soft tissues: Left epicardial fat pad. IMPRESSION: No acute finding. Dictated and Authenticated by: Mckinley Garcia MD. Ordering:SHEELA Dejesus MD
[2022-08-09] MEDS: Albuterol 2.5 MG/3 ML INH SOLN VIAL UPD (08:12)
--- NOTE | 2022-08-09 08:14 | NUR.NOTE ---
Nursing Note: patient stated dressing from knee operation was supposed to come off today. Patient removed in room. Suture line looks well approximated with no signs of infection. Redressed with telfa, gauze wrap, and tape.
--- NOTE | 2022-08-09 09:04 | W.EDPROG ---
Date of service: 08/09/22 Time of Service: 09:10 Medical Decision Making Care signed out by Dr. Delacruz, please see his documentation regarding initial ED presentation course. Plan at signout was to follow-up on CT imaging and reassess patient for disposition. CT of the abdomen pelvis was interpreted by radiology: IMPRESSION: 1. No obvious acute findings in the abdomen pelvis. 2. Left hip arthroplasty as well as this fixation plate in the left hemipelvis and heterotrophic bone.? Findings most probably posttraumatic.? No acute fractures evident. 3. There is a slightly enlarged portacaval lymph node noted.? No other obvious lymphadenopathy.? No splenomegaly.? No mesenteric masses. 4. Atherosclerotic abdominal aorta and iliac arteries.? No aneurysm. Chest x-ray was interpreted by radiology: No acute pulmonary findings. Patient had CT imaging and patient reassessed remained stable. Patient did have some wheezing. No rash or swelling. He was given an albuterol neb as he takes albuterol 4 times a day. Wheezing significantly improved. Plan for discharge with outpatient follow-up with PCP. Suspect ileus/constipation. Plan to start MiraLAX. Disposition decision was made weighing the risks and benefits of hospitalization versus outpatient treatment, the risk for further decompensation, and the patient's wishes. The patient was stable and requested discharge. Prior to discharge, my usual and customary return precautions were reviewed with the patient - this included follow-up instructions and reason to return to the emergency department if condition worsens, does not improve as expected, or other new concerns arise. Sign Out Sign Out Data: Sign Out Comment: recent knee surgery and stemi post lysis and stent; constipation for one week; likely constipation v ileus, lower suspicion for bowel obstruction; desats when asleep, likely component of sleep apnea Last updated by Oleg Delacruz MD at 08/09/22 07:54 Discharge Plan Disposition Patient Disposition: Home Condition: Stable Discharge Details Clinical Impression: Ileus, Creatinine elevation Primary Care Provider: Bradley Carmichael ED Provider: Oleg Delacruz Home Meds and New Rx's Prescriptions: New polyethylene glycol 3350 [Miralax] 17 gram/dose powder 17 g PO BID PRN (Reason: constipation) Qty: 119 0RF Continued colchicine 0.6 mg tablet 0.6 mg PO BID PRN Rx Instructions: Take twice daily until gone. (DME) FreeStyle Corazon 2 [place] [facility] See Rx Instructions .ROUTE .MEDSUPPLY Qty: 1 0RF Rx Instructions: As directed ([facility]) FreeStyle Corazon 2 Sensor Kit See Rx Instructions .ROUTE .MEDSUPPLY Qty: 1 5RF Rx Instructions: As directed (DME) lancets [OneTouch Delica Lancets] 33 gauge [facility] See Rx Instructions .ROUTE .MEDSUPPLY Qty: 100 3RF Rx Instructions: test daily ([facility]) blood-glucose meter [OneTouch Verio Flex meter] [facility] See Rx Instructions .ROUTE .MEDSUPPLY Qty: 1 0RF Rx Instructions: test daily ([facility]) OneTouch Verio test strips Strip See Rx Instructions .ROUTE .MEDSUPPLY Qty: 100 3RF Rx Instructions: test daily omeprazole 40 mg capsule,delayed release(DR/EC) 40 mg PO BID Qty: 180 3RF lisinopril-hydrochlorothiazide 20-12.5 mg tablet 1 tab PO DAILY Qty: 90 3RF Jardiance 25 mg tablet 25 mg PO QAM Qty: 90 3RF Rx Instructions: dose increase 06/03/21 albuterol sulfate [Ventolin HFA] 90 mcg/actuation HFA aerosol inhaler 2 puff inhalation QID PRN (Reason: shortness of breath or wheezing) Qty: 8.5 2RF oxycodone 15 mg tablet 15 mg PO Q4H MDD 90mg PRN (Reason: pain) Qty: 30 0RF aspirin 81 mg tablet,delayed release (DR/EC) 81 mg PO DAILY 30 Days Qty: 60 0RF Rx Instructions: 08/06/[address] [facility] Cardiology prasugrel 10 mg tablet 10 mg PO DAILY Qty: 30 0RF Rx Instructions: 08/06/[address] [facility] Cardiology. -hb atorvastatin 80 mg tablet 80 mg PO DAILY Qty: 30 0RF Rx Instructions: 08/06/[address] [facility] Cardiology. -hb metoprolol succinate 50 mg tablet extended release 24 hr 50 mg PO DAILY Qty: 30 0RF Rx Instructions: 08/06/[address] [facility] Cardiology. -hb nitroglycerin 0.4 mg tablet, sublingual 0.4 mg sublingual Q5-15M PRN (Reason: chest pain) Qty: 60 0RF Rx Instructions: do not exceed 3 doses per episode 08/06/[address] [facility] Cardiology. -hb celecoxib [Celebrex] 200 mg capsule 200 mg PO BID PRNQty: 60 0RF Rx Instructions: Take one tablet twice daily for pain and inflammation acetaminophen 500 mg tablet 1,000 mg PO Q8H PRN Qty: 90 0RF Rx Instructions: Take two tablets up to every 8 hours as needed for pain docusate sodium [Colace] 100 mg capsule 100 mg PO BID Qty: 30 0RF gabapentin 300 mg capsule 300 mg PO QHS Qty: 14 0RF Rx Instructions: Take one tablet at bedtime Discharge Instructions Instructions: Ileus (ED) Additional Instructions: Please use laxative as prescribed. Please drink plenty of fluids to stay hydrated. Maintain a clear liquid diet today and advance to soft foods tomorrow. Your creatinine level was slightly elevated today. This may be indicative of dehydration. Please contact your primary care physician to arrange follow-up. You should been reassessed later this week. Return to the ER immediately for any worsening or new concerning symptoms. Referrals: Bradley Carmichael MD [Primary Care Provider] -
== END 2022-08-09 09:29 | disposition home or self-care (01) ==
PROVIDERS: Emergency Provider Emergency Medicine; PCP Family Medicine
DX: K56.7 Ileus, unspecified (principal); R74.8 Abnormal levels of other serum enzymes; I21.9 Acute myocardial infarction, unspecified; R06.2 Wheezing
CPT/HCPCS: 36415; 80053; 93005; 94640; 96374; 96375; 99285; 71046; 74177; 85025; 93010; 99284; J2405; J3490; J7613

== ENCOUNTER 2022-08-09 13:45 | Outpatient (CLI) | payer MEDICARE, SELFPAY ==
--- NOTE | 2022-08-09 13:15 | DI.RAD_ITS ---
Exam(s) XR STANDING ALIGNMENT EXAM: XR STANDING ALIGNMENT CLINICAL HISTORY: 1ST POST OP L TKA. TECHNIQUE: 2D digital imaging was performed. COMPARISON: CR XR STANDING ALIGNMENT from 03/29/2022 FINDINGS: 3 views Again noted is left hip arthroplasty, a long fixation plate along the lateral aspect of the femur to the level of the distal condyles as well as an ipsilateral left knee prosthesis which is new since th e 03/29/2022 images. Also again noted is fixation plate in the left hemipelvis and acetabulum. No o bvious acute fracture or hardware loosening. Right hip appears unremarkable. There are mild-moderat e degenerative changes in the medial compartment of the right knee. Lateral compartment of the right knee appears unremarkable. There is mild narrowing of the tibiotalar joint on the right side. Left side unremarkable. No osteochondral defects in the talar domes. IMPRESSION: Multi level left-sided hardware as described above. Moderate narrowing of the medial compartment of the right knee. DATA REPOSITORY: RADIATION DOSE DELIVERED:
--- NOTE | 2022-08-09 13:15 | DI.RAD_ITS ---
Exam(s) XR KNEE LT 1V EXAM: XR KNEE LT 1V CLINICAL HISTORY: 1ST POST OP L TKA. TECHNIQUE: 2D digital imaging was performed. COMPARISON: CR XR KNEE LT 1V from 03/29/2022 FINDINGS: 3 views On the lateral view the components of the recently placed left knee prosthesis appear to be in satisf actory position alignment. No fracture or loosening evident. Long lateral fixation plate in the fem ur is again noted. IMPRESSION: DATA REPOSITORY: RADIATION DOSE DELIVERED:
== END 2022-08-09 13:46 | disposition home or self-care (01) ==
LOC: DIORS 13:46
PROVIDERS: PCP Family Medicine; Referring Provider Family Medicine; Visit Provider Student in an Organized Health Care Education/Training Program
DX: Z96.652 Presence of left artificial knee joint (principal); Z47.1 Aftercare following joint replacement surgery; I21.3 ST elevation (STEMI) myocardial infarction of unspecified site; I97.89 Other postprocedural complications and disorders of the circulatory system, not elsewhere classified; K56.7 Ileus, unspecified; R53.83 Other fatigue
CPT/HCPCS: 73560; 77073

== ENCOUNTER → 2022-08-16 13:29 | Outpatient (BNVA) | payer MEDICARE, SELFPAY | PROVIDERS: PCP Family Medicine; Referring Provider Family Medicine; Visit Provider Student in an Organized Health Care Education/Training Program | DX: M25.062 Hemarthrosis, left knee (principal); Z96.652 Presence of left artificial knee joint; I97.89 Other postprocedural complications and disorders of the circulatory system, not elsewhere classified; Z47.1 Aftercare following joint replacement surgery ==

== ENCOUNTER → 2022-08-30 13:56 | Outpatient (BNVA) | payer MEDICARE, SELFPAY | PROVIDERS: PCP Family Medicine | DX: Z47.1 Aftercare following joint replacement surgery (principal); Z96.652 Presence of left artificial knee joint ==

== ENCOUNTER → 2022-09-13 15:33 | Outpatient (BNVA) | payer MEDICARE, SELFPAY | PROVIDERS: PCP Family Medicine; Referring Provider Family Medicine; Visit Provider Student in an Organized Health Care Education/Training Program | DX: Z47.1 Aftercare following joint replacement surgery (principal); Z96.652 Presence of left artificial knee joint; I97.89 Other postprocedural complications and disorders of the circulatory system, not elsewhere classified; I25.2 Old myocardial infarction ==

== ENCOUNTER → 2022-10-11 14:42 | Outpatient (BNVA) | payer MEDICARE, SELFPAY | PROVIDERS: PCP Family Medicine; Referring Provider Family Medicine; Visit Provider Student in an Organized Health Care Education/Training Program | DX: Z47.1 Aftercare following joint replacement surgery (principal); Z96.652 Presence of left artificial knee joint; I97.89 Other postprocedural complications and disorders of the circulatory system, not elsewhere classified ==

== ENCOUNTER → 2022-11-15 14:30 | Outpatient (BNVA) | payer MEDICARE, SELFPAY | PROVIDERS: PCP Family Medicine; Referring Provider Family Medicine; Visit Provider Student in an Organized Health Care Education/Training Program | DX: Z47.1 Aftercare following joint replacement surgery (principal); M25.662 Stiffness of left knee, not elsewhere classified; Z96.652 Presence of left artificial knee joint; I97.89 Other postprocedural complications and disorders of the circulatory system, not elsewhere classified | CPT/HCPCS: 99213 ==

== ENCOUNTER → 2022-12-27 14:01 | Outpatient (BNVA) | payer MEDICARE, SELFPAY | PROVIDERS: PCP Family Medicine; Referring Provider Family Medicine; Visit Provider Student in an Organized Health Care Education/Training Program | DX: Z47.1 Aftercare following joint replacement surgery (principal); Z96.652 Presence of left artificial knee joint; I97.89 Other postprocedural complications and disorders of the circulatory system, not elsewhere classified | CPT/HCPCS: 99213 ==

== ENCOUNTER → 2023-03-28 14:04 | Outpatient (BNVA) | payer MEDICARE, SELFPAY | PROVIDERS: PCP Family Medicine; Referring Provider Family Medicine; Visit Provider Student in an Organized Health Care Education/Training Program | DX: Z47.1 Aftercare following joint replacement surgery (principal); Z96.652 Presence of left artificial knee joint | CPT/HCPCS: 99213 ==

== ENCOUNTER 2023-04-22 10:45 | Outpatient (CLI) | payer MEDICARE, SELFPAY ==
--- NOTE | 2023-04-22 10:30 | DI.RAD_ITS ---
Exam(s) XR KNEE RT 3V AP,LAT,RADHA EXAM: XR KNEE RT 3V AP,LAT,RADHA CLINICAL HISTORY: eval R knee pain. TECHNIQUE: 2D digital imaging was performed. Three views. COMPARISON: CR XR STANDING ALIGNMENT from 08/09/2022 CR XR KNEE LT 1V from 08/09/2022 FINDINGS: BONES: No acute fracture is present. No bony destructive lesion is seen. Enthesophyte upper pole pa tella. JOINTS: Mild narrowing medial femoral tibial joint space. Periarticular spurring. Mild varus angula tion. Mild spurring at the articular aspect of patella. No joint effusion is seen. SOFT TISSUE: Vascular calcifications IMPRESSION: Iipi-ol-jpcihfjx degenerative changes of the right knee. DATA REPOSITORY: RADIATION DOSE DELIVERED:
== END 2023-04-22 10:46 | disposition home or self-care (01) ==
LOC: DIORS 10:45
PROVIDERS: PCP Family Medicine; Referring Provider Family Medicine; Visit Provider Student in an Organized Health Care Education/Training Program
DX: M25.561 Pain in right knee (principal)
CPT/HCPCS: 20610; 73562; J1040

== ENCOUNTER 2023-06-20 14:44 | Emergency (ER) | payer MEDICARE, SELFPAY ==
[2023-06-20] VITALS (13 sets, daily range): BP systolic 107–124; BP diastolic 63–72; PULSE 69–79; RESP 12–28; O2SAT 100
--- NOTE | 2023-06-20 14:30 | RT.EKG_ITS ---
APPROVED REPORT Exam: Resting ECG Reason for Exam: chest pain Patient Location: E HR:73 bpm ECG Measurements Heart Rate 73 AXIS ID 175 P 62 QRSd 89 QRS 76 QT 394 T 84 QTc 433 Conclusion Sinus rhythm...normal P axis, V-rate 60- 99 Inferoposterior infarct, acute...ST>.1 inf, <-.1 V1-3 or >.05 V7-9
--- NOTE | 2023-06-20 14:30 | RT.EKG_ITS ---
APPROVED REPORT Exam: Resting ECG Reason for Exam: chest pain Patient Location: E HR:74 bpm ECG Measurements Heart Rate 74 AXIS TX 176 P 63 QRSd 92 QRS 65 QT 381 T 70 QTc 424 Conclusion Sinus rhythm...normal P axis, V-rate 60- 99 Inferoposterior infarct, acute...ST>.1 inf, <-.1 V1-3 or >.05 V7-9 Lateral infarct, acute...ST >.10mV, V5 V6 I aVL
--- NOTE | 2023-06-20 14:50 | W.ED.GENAD ---
HPI General Mode of arrival: EMS. Date/Time Provider Initiated Documentation: 06/20/23 14:49. Limitations to Documentation: no limitations. Information obtained by: patient. History of Present Illness 58 year old M presents to the emergency department with the chief complaint of chest pain, described as severe, Quality is described as crushing, and is localized to the chest. Patient started experiencing this hour(s) (1) and it has been constant. No relieving factors improve symptom(s), No exacerbating factors reported . Patient notes denies fever/chills and shortness of breath. Patient did receive the following treatments prior to arrival, none Related Data Home Medications Medication Instructions Recorded Confirmed blood sugar diagnostic (ERPLYTouch #100 ea 11/05/19 06/14/23 Verio test strips) blood-glucose meter (OneTouch #1 ea 11/05/19 06/14/23 Verio Flex Meter) lancets 33 gauge (OneTouch Delica #100 ea 11/05/19 06/14/23 Lancets) flash glucose scanning reader #1 ea 03/03/21 06/14/23 (FreeStyle Corazon 2 Parrish) flash glucose sensor (FreeStyle #1 ea 03/04/21 06/14/23 Corazon 2 Sensor kit) acetaminophen 500 mg tablet 1,000 mg (2 x 500 mg) PO Q8H PRN 07/27/22 06/14/23 pain #90 tabs nitroglycerin 0.4 mg sublingual 0.4 mg sublingual Q5-15M PRN chest 08/06/22 06/14/23 tablet pain #60 tabs polyethylene glycol 3350 17 17 g PO BID PRN constipation #119 08/09/22 06/14/23 gram/dose oral powder (Miralax) grams docusate sodium 100 mg capsule 100 mg PO BID #180 caps 08/20/22 06/14/23 (Colace) lidocaine 5 % topical ointment 1 applic topical TID PRN pain #50 11/15/22 06/14/23 grams naloxone 4 mg/actuation nasal spray 4 mg intranasal Q2M PRN opioid 01/02/23 06/14/23 overdose #2 ea omeprazole 40 mg capsule,delayed 40 mg PO BID dyspepsia #180 04/12/23 06/14/23 release tab-caps ondansetron HCl 4 mg tablet 4 mg PO Q8H PRN nausea and 06/08/23 06/14/23 vomiting #20 tabs buprenorphine 10 mcg/hour weekly 1 patch transdermal Q7D #4 ea 06/14/23 06/14/23 transdermal patch (Butrans) empagliflozin 25 mg tablet 25 mg PO QAM #90 tabs 06/14/23 06/14/23 (Jardiance) lisinopril 20 1.5 tab (1.5 x 20-12.5 mg) PO 06/14/23 06/14/23 mg-hydrochlorothiazide 12.5 mg DAILY #90 tab-caps tablet oxycodone 5 mg tablet 5 mg PO Q6H PRN pain #28 tabs 06/14/23 06/14/23 tiotropium bromide 2.5 2 puff inhalation QAM #4 grams 06/14/23 06/14/23 mcg/actuation mist for inhalation (Spiriva Respimat) albuterol sulfate 90 mcg/actuation 2 puff inhalation QID PRN 06/15/23 aerosol inhaler (Ventolin HFA) shortness of breath or wheezing #8.5 grams Previous Rx's Medication Instructions Recorded blood sugar diagnostic (OneTouch #100 ea 11/05/19 Verio test strips) blood-glucose meter (OneTouch #1 ea 11/05/19 Verio Flex Meter) lancets 33 gauge (OneTouch Delica #100 ea 11/05/19 Lancets) flash glucose scanning reader #1 ea 03/03/21 (FreeStyle Corazon 2 Parrish) flash glucose sensor (FreeStyle #1 ea 03/04/21 Corazon 2 Sensor kit) acetaminophen 500 mg tablet 1,000 mg (2 x 500 mg) PO Q8H PRN 07/27/22 pain #90 tabs nitroglycerin 0.4 mg sublingual 0.4 mg sublingual Q5-15M PRN chest 08/06/22 tablet pain #60 tabs polyethylene glycol 3350 17 17 g PO BID PRN constipation #119 08/09/22 gram/dose oral powder (Miralax) grams docusate sodium 100 mg capsule 100 mg PO BID #180 caps 08/20/22 (Colace) lidocaine 5 % topical ointment 1 applic topical TID PRN pain #50 11/15/22 grams naloxone 4 mg/actuation nasal spray 4 mg intranasal Q2M PRN opioid 01/02/23 overdose #2 ea omeprazole 40 mg capsule,delayed 40 mg PO BID dyspepsia #180 04/12/23 release tab-caps ondansetron HCl 4 mg tablet 4 mg PO Q8H PRN nausea and 06/08/23 vomiting #20 tabs buprenorphine 10 mcg/hour weekly 1 patch transdermal Q7D #4 ea 06/14/23 transdermal patch (Butrans) empagliflozin 25 mg tablet 25 mg PO QAM #90 tabs 06/14/23 (Jardiance) lisinopril 20 1.5 tab (1.5 x 20-12.5 mg) PO 06/14/23 mg-hydrochlorothiazide 12.5 mg DAILY #90 tab-caps tablet oxycodone 5 mg tablet 5 mg PO Q6H PRN pain #28 tabs 06/14/23 tiotropium bromide 2.5 2 puff inhalation QAM #4 grams 06/14/23 mcg/actuation mist for inhalation (Spiriva Respimat) albuterol sulfate 90 mcg/actuation 2 puff inhalation QID PRN 06/15/23 aerosol inhaler (Ventolin HFA) shortness of breath or wheezing #8.5 grams Allergies Allergy/AdvReac Type Severity Reaction Status Date / Time Penicillins Allergy Unknown unknown Verified 06/20/23 14:48 fentanyl AdvReac Severe Nausea Verified 06/20/23 14:48 semaglutide [From [facility]] AdvReac Severe Nausea Verified 06/20/23 14:48 General Stated Complaint: Chest Pain CHIN: 2 Review of Systems All systems reviewed & are unremarkable except as noted in HPI and below Constitutional Constitutional: Denies chills, Denies fever(s) and Denies weakness Cardiovascular Cardiovascular: Reports chest pain and Denies dyspnea Respiratory Respiratory: Denies cough and Denies dyspnea Gastrointestinal Gastrointestinal: Denies abdominal pain, Denies nausea and Denies vomiting Genitourinary Genitourinary: Denies dysuria Musculoskeletal Musculoskeletal: Denies joint swelling Integumentary/Breasts Skin/Breast: Denies rash Neurologic Neurologic: Denies weakness Exam HENTX Head: normal to inspection Ears: external ears normal General nose exam: external nose normal Mouth: moist mucous membranes Eyes General: appearance normal, both eyes and all related structures Neck Neck: normal visual inspection Resp Effort & Inspection: normal respiratory effort and able to speak in complete sentences Auscultation: clear to auscultation bilaterally Cardio Rate: regular rate Heart Sounds: no murmurs GI Palpation: soft and nontender Skin General skin exam: no rashes or lesions noted Neuro General: patient alert and patient oriented x3 Extrem General: normal to inspection Psych Mental Status: mental status grossly normal Course Vital Signs Vital signs: Vital Signs Pulse 77 06/20/23 14:45 Respiratory Rate 23 06/20/23 14:45 Blood Pressure 107/70 06/20/23 14:45 Pulse Oximetry 100 06/20/23 14:45 Pulse 77 06/20/23 14:45 Respiratory Rate 23 06/20/23 14:45 Blood Pressure 107/70 06/20/23 14:45 Blood Pressure Position Supine 06/20/23 14:45 Pulse Oximetry 100 06/20/23 14:45 Oxygen Delivery Method Room Air 06/20/23 14:45 Oxygen Flow Rate 0 06/20/23 14:45 Pain Level 6 06/20/23 14:45 Medical Decision Making 58-year-old male with a history of coronary artery disease, chronic pain, diabetes, hypertension, who comes in with chest pain. He states he was in his usual state of health today was starting to cook around 2 PM today when he developed sudden severe substernal chest pressure rating to both shoulders, denies loss of consciousness, denies difficulty breathing, denies any recent fevers or chills. He was noted to have a ST elevations in the inferior leads with EMS and confirmed on arrival here. He is conscious alert x 4 on arrival, no JVD clear lung sounds no leg swelling or calf tenderness. Patient denies having any history of intracranial hemorrhage known cerebrovascular lesion no strokes within the last 3-month, has no absolute contraindications to lytics. He has no tearing back pain and equal peripheral pulses so doubt dissection. Patient has been medical decision-making capacity and consents to receiving TNK after discussing risks versus benefits of it. Will proceed with troponin CBC CMP x-ray. [facility] consulted for transfer after initial history and physical exam. Awaiting callback from [facility]. PT was given 324mg asa spoke with Dr. Harding from cardiology at [facility] who reviewed ekg and the case and agrees with heparin, lytics and requests 300mg oral plavix. PT hemodynamically stable, pending transfer, [facility] will be performing the transfer Differential Diagnosis Differential Diagnosis: stemi, acs Imaging Data Radiologic Study: Attestation: I personally reviewed and interpreted this imaging study as follows: Imaging: X-Ray Radiologist's impression: Patient Name: Jose Antonio Colunga Unit #: [id number] Loc: ER Ordering Provider: Juan Tan M.D. Status: REG ER Primary Care Provider: Bradley Carmichael M.D. Date of Exam: 06/20/23 Sex: M Admission Date: 06/20/23 : 1965 Age: 58 Exam(s) XR PORTABLE CHEST AP EXAM: XR PORTABLE CHEST AP CLINICAL HISTORY: chest pain TECHNIQUE: 2D digital imaging was performed. COMPARISON: CR,XR XR CHEST 2V PA LATERAL from 08/09/2022 FINDINGS: Multiple leads overlie the chest. This partially obscures portions of the left chest. LUNGS: Clear. No pleural abnormality seen. HEART: Normal size. AORTA: Normal diameter. BONES: Unremarkable for age. Soft tissues: Unremarkable. IMPRESSION: No acute findings. Lab Data Lab results reviewed: Yes I reviewed the patient's lab results. ECG Data Attestation: I personally reviewed and interpreted this ECG (s) as follows: Prior ECG tracings: available for review Interpretation: sinus, rate of 74, STEMI with elevations in v5-v6 and II, III avF and st sdepressions in v1-v3 2nd ekg sinus rate of 73 no significant changes continued STEMI Quality:SDOH Health Related Social Needs: No Data to Display Critical Care Time Critical Care Time Critical Care Time: Yes Total Critical Care Time: 45 (minutes) Attestation: time spent on frequent reassessments, lab review, hemodynamic monitoring, and administering thrombolytics in a patient with a STEMI and potential to deteriorate at any time PFSH All Active Problems (Updated 06/20/23 @ 15:17 by Juan Tan MD) ST elevation (STEMI) myocardial infarction (Acute) Chronic cough (Acute) Right knee pain (Acute) History of total left knee replacement (Acute 07/27/22) Post-COVID chronic dyspnea (Acute) Difficulty breathing (Acute) Left knee DJD (Acute) Controlled diabetes mellitus (Acute) Trochanteric bursitis of left hip (Acute) s/p open debridement/excision of left trochanteric bursa and iliotibial band lengthening with excision of heterotopic ossification from left hip with repair of abductor musculature 12/09/2021 Postoperative heterotopic ossification (Acute) s/p open debridement/excision of left trochanteric bursa and iliotibial band lengthening with excision of heterotopic ossification from left hip with repair of abductor musculature 12/09/2021 Obesity (Chronic) he needs to quit drinking soda Chronic pain (Acute 09/15/16) Gout (Acute 04/19/14) GERD (gastroesophageal reflux disease) (Chronic 11/25/14) Smoker (Chronic 06/05/13) Acute CVA (cerebrovascular accident) (Acute) Bzicts-vc-upgxsrbwy syndrome (Acute) Non-compliance (Chronic) Pain in left hip (Acute) BCC (basal cell carcinoma), face (Acute ~11/12/19) [place] [facility] [place] Viral illness (Acute) Rule out coronavirus 19 Lesion of right [place] kidney (Acute) Skin lesion (Acute) Abdominal pain (Acute) Diabetes mellitus (Chronic) Hypertension (Chronic) Well adult (Chronic) health compromised by worsening obesity History of shoulder surgery (Acute) Status post carpal tunnel release (Acute) Dental abscess (Acute 05/31/17) Facial cellulitis (Acute 05/31/17) Surgical History S/P cardiac catheterization 07/2022 [facility] of percutaneous coronary intervention 07/2022 [place] [facility] Closed comminuted intra-articular fracture of distal end of femur S/P ORIF: 07/05/2021 shoulder repair left Open Carpal Tunnel release b/l Fracture, Open Treatment 10/30/14 [facility] ORIF L HIP REDUCTION AND ORIF L FEMUR FX Family History Mother No problems noted. Father Diabetes Essential hypertension Heart disease Hyperlipidemia Stroke Cancer Sister Asthma Maternal Grandfather Alcohol abuse Depression Paternal Grandfather , 90 No problems noted. Maternal Grandmother , 96 Asthma Diabetes Heart disease Paternal Grandmother , 78 Diabetes Essential hypertension Stroke Daughter Substance abuse Essential hypertension Depression Social History Smoking/Tobacco Use Status: Current every day Tobacco Type: cigarettes Tobacco: How many years used: 40 Quit status: considering quitting Second Hand Exposure: Yes Smoking risk assessment performed?: Yes Alcohol Intake: current Alcohol Intake frequency: holidays/special occasions only Drug use: Daily Substance use type: marijuana Details: last marijuana use 07/26/22-inhalation Caregiver/Support person: No Household members: significant other Housing: other Details: mobile home Communication Needs: None Pets and animals: Yes Pets and animals: dog(s) Sexually active: Yes Do you think of yourself as: straight/heterosexual Current gender identity: male What is your relationship status?: living with partner How often do you talk on the phone with friends or family?: three or more times per week How often do you get together with friends or relatives?: once per week How often do you attend holiness or hindu services?: decline to answer Do you belong to any clubs or organized social groups?: decline to answer Panel score (0-1 are the most socially isolated patients): 2 What type of physical activity do you participate in: decline to answer Duration: < 15 minutes/day Geovanna/Voodoo: None Special geovanna needs: No Seatbelt use: always Helmet use: Yes Helmet use: sometimes 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 Do you feel safe at home: Yes Do you feel safe in your relationship?: Yes Discharge Plan Disposition Condition: Critical Discharge Details Chief Complaint: Chest Pain Clinical Impression: ST elevation (STEMI) myocardial infarction Primary Care Provider: Bradley Carmichael ED Provider: Juan Tan Meds and New Rx's Prescriptions: No Action (DME) FreeStyle Corazon 2 Parrish Misc See Rx Instructions .ROUTE .MEDSUPPLY Qty: 1 0RF Rx Instructions: As directed (DME) FreeStyle Corazon 2 Sensor Kit See Rx Instructions .ROUTE .MEDSUPPLY Qty: 1 5RF Rx Instructions: As directed lidocaine 5 % ointment 1 applic topical TID PRN (Reason: pain) Qty: 50 6RF buprenorphine [Butrans] 10 mcg/hour patch weekly 1 patch transdermal Q7D Qty: 4 2RF oxycodone 5 mg tablet 5 mg PO Q6H PRN MDD 4 tabs Qty: 28 0RF Spiriva Respimat 2.5 mcg/actuation mist 2 puff inhalation QAM Qty: 4 2RF lisinopril-hydrochlorothiazide 20-12.5 mg tablet 1.5 tab PO DAILY Qty: 90 3RF Jardiance 25 mg tablet 25 mg PO QAM Qty: 90 3RF Rx Instructions: dose increase 06/03/21 naloxone 4 mg/actuation spray,non-aerosol 4 mg intranasal Q2M PRN (Reason: opioid overdose) Qty: 2 0RF Rx Instructions: spray 1 dose into ONE nostril; alternate nostrils w each dose until help arrives ondansetron HCl 4 mg tablet 4 mg PO Q8H PRN (Reason: nausea and vomiting) Qty: 20 0RF (DME) lancets [ERPLYTouch Delica Lancets] 33 gauge misc See Rx Instructions .ROUTE .MEDSUPPLY Qty: 100 3RF Rx Instructions: test daily (DME) blood-glucose meter [Santechuch Verio Flex meter] Misc See Rx Instructions .ROUTE .MEDSUPPLY Qty: 1 0RF Rx Instructions: test daily (DME) OneTouch Verio test strips Strip See Rx Instructions .ROUTE .MEDSUPPLY Qty: 100 3RF Rx Instructions: test daily nitroglycerin 0.4 mg tablet, sublingual 0.4 mg sublingual Q5-15M PRN (Reason: chest pain) Qty: 60 0RF Rx Instructions: do not exceed 3 doses per episode 08/06/22 Per [facility] [place]. -hb docusate sodium [Colace] 100 mg capsule 100 mg PO BID Qty: 180 3RF omeprazole 40 mg capsule,delayed release(DR/EC) 40 mg PO BID Qty: 180 3RF albuterol sulfate [Ventolin HFA] 90 mcg/actuation HFA aerosol inhaler 2 puff inhalation QID PRN (Reason: shortness of breath or wheezing) Qty: 8.5 2RF polyethylene glycol 3350 [Miralax] 17 gram/dose powder 17 g PO BID PRN (Reason: constipation) Qty: 119 0RF acetaminophen 500 mg tablet 1,000 mg PO Q8H PRN Qty: 90 0RF Rx Instructions: Take two tablets up to every 8 hours as needed for pain
[2023-06-20] MEDS: Heparin in 0.45% NaCl 25,000 UNIT/250 ML BAG 10 UNIT IV (14:52)
[2023-06-20 14:53] LABS: Abs Immature Grans 0.04 10^3/uL (0.0-0.06); Absolute Basophil Count 0.07 10^3/uL (0.0-0.2); Absolute Eosinophil Count 0.05 10^3/uL (0.0-0.7); Absolute Lymphocyte Count 4.14 10^3/uL (1.2-3.4); Absolute Monocyte Count 0.78 10^3/uL (0.1-0.8); Basophils % 0.6; Eosinophils % 0.4; HCT 44.7 % (40.0-50.0); HGB 14.6 g/dL (13.5-17.5); Immature Grans % 0.3; Lymphocytes % 35.8; MCH 28.5 pg (27.0-33.0); MCHC 32.7 % (32.0-36.0); MCV 87 fL (80-95); MPV 9.6 fL (8.0-11.0); Monocytes % 6.7; Neutrophils % 56.2; Platelet Count 281 10^3/uL (130-400); RBC 5.13 10^6/uL (4.36-5.78); RDW 15.9 % (11.8-14.1); RDW-SD 51.3 fL; WBC 11.57 10^3/uL (4.4-10.8)
[2023-06-20] MEDS: Tenecteplase 50 MG KIT IVP (14:56)
[2023-06-20] MEDS: Clopidogrel 300 MG TAB PO (15:05)
[2023-06-20 15:06] LABS: PTT Activated 22.9 sec (23.6-32.8); Prothrombin Time 10.2 sec (9.1-11.1)
[2023-06-20 15:11] LABS: ALT 13 U/L (16-63); AST 6 U/L (15-37); Albumin 3.3 g/dL (3.4-5.0); Alkaline Phosphatase 94 U/L (46-116); Anion Gap 10.8 mmol/L (3-11); BUN 18 mg/dL (7-18); Bilirubin, Total 0.3 mg/dL (0.2-1.0); CO2 29.2 mmol/L (21.0-32.0); CREATININE 1.3 mg/dL (0.70-1.30); Calcium 9.3 mg/dL (8.5-10.1); Chloride 100 mmol/L (98-107); Estimated GFR 62.89 (mL/min/1.73m2); Glucose 177 mg/dL (74-106); Lipase 22 U/L (16-77); Magnesium 2.1 mg/dL (1.8-2.4); Potassium 3.3 mmol/L (3.5-5.1); Sodium 140 mmol/L (136-145); Total Protein 7.8 g/dL (6.4-8.2)
[2023-06-20] MEDS: MORPHine 4 MG/ML SYR IVP (15:14)
[2023-06-20 15:17] LABS: Troponin I 219 ng/L (< or =60)
--- NOTE | 2023-06-20 15:17 | DI.RAD_ITS ---
Exam(s) XR PORTABLE CHEST AP EXAM: XR PORTABLE CHEST AP CLINICAL HISTORY: chest pain TECHNIQUE: 2D digital imaging was performed. COMPARISON: CR,XR XR CHEST 2V PA LATERAL from 08/09/2022 FINDINGS: Multiple leads overlie the chest. This partially obscures portions of the left chest. LUNGS: Clear. No pleural abnormality seen. HEART: Normal size. AORTA: Normal diameter. BONES: Unremarkable for age. Soft tissues: Unremarkable. IMPRESSION: No acute findings. DATA REPOSITORY: RADIATION DOSE DELIVERED:
[2023-06-20] MEDS: POTASSIUM CHLORIDE 10 MEQ/100 ML BAG 100 MEQ IVPB (15:28)
== END 2023-06-20 16:10 ==
PROVIDERS: Emergency Provider Emergency Medicine; PCP Family Medicine
DX: I22.2 Subsequent non-ST elevation (NSTEMI) myocardial infarction (principal); E87.6 Hypokalemia; I25.10 Atherosclerotic heart disease of native coronary artery without angina pectoris; E11.9 Type 2 diabetes mellitus without complications; I10 Essential (primary) hypertension; F17.210 Nicotine dependence, cigarettes, uncomplicated; Z86.73 Personal history of transient ischemic attack (TIA), and cerebral infarction without residual deficits; Z79.899 Other long term (current) drug therapy
CPT/HCPCS: 80053; 83690; 93005; 96365; 96375; 99285; 71045; 83735; 84484; 85025; 85610; 85730; 93010; J1644; J2270; J2305; J3101; J3480

== ENCOUNTER 2023-07-25 15:20 | Outpatient (CLI) | payer MEDICARE, SELFPAY ==
--- NOTE | 2023-07-25 13:00 | DI.RAD_ITS ---
Exam(s) XR KNEE LT 2V AP,LAT EXAM: XR KNEE LT 2V AP,LAT CLINICAL HISTORY: F/U LEFT TKR. TECHNIQUE: 2D digital imaging was performed. Three views. COMPARISON: CR XR STANDING ALIGNMENT from 08/09/2022 CR XR KNEE RT 3V AP,LAT,RADHA from 04/22/2023 FINDINGS: BONES: No acute fracture is present. Old healed distal femoral fracture. Fixation plate noted ronaldo g lateral aspect of distal femur. No abnormal surrounding lucencies. No bony destructive lesion is seen. JOINTS: Total knee prosthesis. No joint effusion is seen. SOFT TISSUE: Vascular calcifications. IMPRESSION: Stable appearance of left knee prosthesis and distal femoral hardware. DATA REPOSITORY: RADIATION DOSE DELIVERED:
--- NOTE | 2023-07-25 13:00 | DI.RAD_ITS ---
Exam(s) XR HIP LT AP LAT ONLY EXAM: XR HIP LT AP LAT ONLY CLINICAL HISTORY: LEFT HIP PAIN. TECHNIQUE: 2D digital imaging was performed. Two views. COMPARISON: CR XR HIP LT COMPLETE AP PELVIS from 01/14/2022 CR XR STANDING ALIGNMENT from 08/09/2022 FINDINGS: BONES: Left hip prosthesis. Hardware in left pelvis. No change in acetabular protrusion. Heterotop ic ossification noted at the ileum and greater and lesser trochanters. No acute fracture is present. No bony destructive lesion is seen. JOINTS: No dislocation present. SOFT TISSUE: Normal. IMPRESSION: Stable postoperative changes. DATA REPOSITORY: RADIATION DOSE DELIVERED:
== END 2023-07-25 15:21 | disposition home or self-care (01) ==
LOC: DIORS 15:20
PROVIDERS: PCP Family Medicine; Referring Provider Family Medicine; Visit Provider Student in an Organized Health Care Education/Training Program
DX: Z96.652 Presence of left artificial knee joint (principal); M70.62 Trochanteric bursitis, left hip
CPT/HCPCS: 20610; 73502; 73560; J1040

== ENCOUNTER 2023-10-20 17:25 | Emergency (ER) | payer MEDICARE, SELFPAY ==
[2023-10-20] VITALS (38 sets, daily range): BP systolic 88–137; BP diastolic 35–63; PULSE 61–73; RESP 12–24; TEMP 36; O2SAT 93
--- NOTE | 2023-10-20 17:30 | RT.EKG_ITS ---
APPROVED REPORT Exam: Resting ECG Reason for Exam: dizziness Patient Location: E HR:71 bpm ECG Measurements Heart Rate 71 AXIS VT 173 P 60 QRSd 93 QRS 43 QT 402 T 63 QTc 438 Conclusion Sinus rhythm...normal P axis, V-rate 60- 99
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
[2023-10-20 17:51] LABS: BE (Venous) 6 mmol/L (-2-3); HCO3 (Venous) 31 mmol/L (23-28); O2 Sat (Venous) 38 %; TCO2 (Venous) 28 mmol/L (24-29); pCO2 (Venous) 54 mmHg (41-51); pH (Venous) 7.37 (7.31-7.41); pO2 (Venous) 21 mmHg
[2023-10-20 17:53] LABS: Abs Immature Grans 0.05 10^3/uL (0.0-0.06); Absolute Basophil Count 0.08 10^3/uL (0.0-0.2); Absolute Eosinophil Count 0.06 10^3/uL (0.0-0.7); Absolute Lymphocyte Count 2.79 10^3/uL (1.2-3.4); Absolute Monocyte Count 0.87 10^3/uL (0.1-0.8); Absolute Neutrophil Count 9.95 10^3/uL (1.2-6.7); Basophils % 0.6 %; Eosinophils % 0.4 %; HCT 44.4 % (40.0-50.0); HGB 14.7 g/dL (13.5-17.5); Immature Grans % 0.4 %; Lymphocytes % 20.2 %; MCH 30.1 pg (27.0-33.0); MCHC 33.1 % (32.0-36.0); MCV 91 fL (80-95); MPV 9.8 fL (8.0-11.0); Monocytes % 6.3 %; Neutrophils % 72.1 %; Platelet Count 294 10^3/uL (130-400); RBC 4.88 10^6/uL (4.36-5.78); RDW 14.7 % (11.8-14.1); RDW-SD 49.1 fL
[2023-10-20] MEDS: Normal Saline 1,000 ML 1000 ML IV ×2 (17:57→19:09)
[2023-10-20] MEDS: Normal Saline Flush 10 ML SYR IVP (17:57)
--- NOTE | 2023-10-20 18:05 | DI.RAD_ITS ---
Exam(s) XR PORTABLE CHEST AP EXAM: XR PORTABLE CHEST AP CLINICAL HISTORY: syncope. TECHNIQUE: 2D digital imaging was performed. COMPARISON: CR,XR XR CHEST 2V PA LATERAL from 08/09/2022 CR XR PORTABLE CHEST AP from 06/20/2023 FINDINGS: Single AP portable view. Heart size is upper normal. The mediastinum is not widened. Lungs are clear. No infiltrates nor obvious pleural effusions. There is right chest wall abnormality with an articulation between the posterior aspect of the right 5th and 6th ribs and 6 and 7th ribs. IMPRESSION: No acute pulmonary findings on this single AP portable view of the chest. 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 This is not an acute findi ng. DATA REPOSITORY: RADIATION DOSE DELIVERED:
[2023-10-20 18:44] LABS: Prothrombin Time 10.4 sec (9.1-11.1)
[2023-10-20 18:50] LABS: ALT 13 U/L (16-63); AST 7 U/L (15-37); Albumin 3.2 g/dL (3.4-5.0); Alkaline Phosphatase 79 U/L (46-116); BUN 26 mg/dL (7-18); Bilirubin, Total 0.3 mg/dL (0.2-1.0); CREATININE 1.7 mg/dL (0.70-1.30); Calcium 8.8 mg/dL (8.5-10.1); Chloride 102 mmol/L (98-107); Estimated GFR 45.58 (mL/min/1.73m2); Glucose 226 mg/dL (74-106); Magnesium 2.1 mg/dL (1.8-2.4); NT-proBNP 354 pg/mL (<300); Potassium 3.3 mmol/L (3.5-5.1); Sodium 141 mmol/L (136-145); Total Protein 7.2 g/dL (6.4-8.2)
[2023-10-20 19:00] LABS: ETHANOL BLOOD < 3.0 mg/dL (<10)
[2023-10-20 19:10] LABS: D-Dimer 795 ng/mlFEU (<500)
[2023-10-20 19:11] LABS: Procalcitonin 0.2 ng/mL
[2023-10-20 19:15] LABS: PTT Activated 18.1 sec (23.6-32.8)
[2023-10-20 19:26] LABS: Bilirubin Negative (Negative); Blood Trace-intact (Negative); Clarity Clear (Clear); Glucose 500 mg/dL (Negative); Ketones Trace mg/dL (Negative); Leukocyte Esterase Negative (Negative); Nitrite Negative (Negative); Specific Gravity 1.015 (1.005-1.025); Urobilinogen 0.2 mg/dL (Up to 0.2); pH 5.5 (5-8)
[2023-10-20 19:26] LABS: COVID-19 PCR Negative (Negative); Influenza A PCR Negative (Negative); Influenza B PCR Negative (Negative); RSV PCR Negative (Negative)
[2023-10-20 19:28] LABS: Bacteria Rare HPF (Negative); C & S Indicated? No; Casts Negative LPF (Negative); Crystals Negative HPF (Negative); Epithelial Cells Rare HPF (Negative); Mucus Negative (Negative); RBC 0-2 HPF (0-2); WBC Negative HPF (0-5)
[2023-10-20 19:33] LABS: Source Nasopharynx
[2023-10-20 19:39] LABS: Troponin I < 50 ng/L (< or =60)
[2023-10-20 20:33] LABS: Troponin I < 50 ng/L (< or =60)
== END 2023-10-20 20:42 | disposition home or self-care (01) ==
PROVIDERS: Emergency Provider Emergency Medicine; PCP Family Medicine
DX: R55 Syncope and collapse (principal); Z86.73 Personal history of transient ischemic attack (TIA), and cerebral infarction without residual deficits; I10 Essential (primary) hypertension; E11.9 Type 2 diabetes mellitus without complications; Z79.899 Other long term (current) drug therapy
CPT/HCPCS: 36415; 80053; 82805; 84145; 87637; 93005; 96360; 96361; 99285; 71045; 80320; 81003; 81015; 83735; 83880; 84484; 85025; 85379; 85610; 85730; 93010

== ENCOUNTER 2024-02-23 15:54 | Outpatient (REF) | payer MEDICARE, SELFPAY ==
[2024-02-23 21:17] LABS: COMMENT (LAB VIEW ONLY) 76.45 mg/dL; Microalb ug/mg Crea 9.9 ug/mg Cr
== END 2024-02-23 15:55 | disposition home or self-care (01) ==
LOC: LBN 15:54
PROVIDERS: PCP Family Medicine; Visit Provider Family Medicine
DX: E11.9 Type 2 diabetes mellitus without complications (principal)
CPT/HCPCS: 82043; 82570

== ENCOUNTER → 2024-06-07 14:13 | Outpatient (BNVA) | payer MEDICARE, SELFPAY | PROVIDERS: PCP Family Medicine; Referring Provider Family Medicine; Visit Provider Physician Assistant | DX: M17.11 Unilateral primary osteoarthritis, right knee (principal) | CPT/HCPCS: 20610; J1010 ==

== ENCOUNTER 2024-06-24 11:44 | Emergency (ER) | payer MEDICARE, SELFPAY ==
[2024-06-24] VITALS (18 sets, daily range): BP systolic 140–180; BP diastolic 69–89; PULSE 75–96; RESP 5–28; TEMP 36.8–36.9; O2SAT 90–99
--- NOTE | 2024-06-24 11:45 | RT.EKG_ITS ---
APPROVED REPORT Exam: Resting ECG Reason for Exam: SOB Patient Location: E HR:92 bpm ECG Measurements Heart Rate 92 AXIS ME 162 P 65 QRSd 88 QRS 55 QT 350 T 50 QTc 433 Conclusion Sinus rhythm...normal P axis, V-rate 50- 99 Physician: no stemi
--- NOTE | 2024-06-24 12:00 | DI.RAD_ITS ---
Exam(s) XR PORTABLE CHEST AP EXAM: XR PORTABLE CHEST AP CLINICAL HISTORY: cough, SOB, eval for pneumonia. TECHNIQUE: 2D digital imaging was performed. COMPARISON: CR XR PORTABLE CHEST AP from 10/20/2023 FINDINGS: Single AP portable view. Heart size is upper normal. The mediastinum is not widened. Lungs are clear. No infiltrates nor obvious pleural effusions. IMPRESSION: No acute pulmonary findings on this single AP portable view of the chest. DATA REPOSITORY: RADIATION DOSE DELIVERED:
--- NOTE | 2024-06-24 12:10 | ED.GENADUL_ITS ---
Discharge Plan Disposition Patient Disposition: Home Condition: Good Discharge Details Clinical Impression: Influenza, COPD exacerbation Primary Care Provider: Bradley Carmichael ED Provider: Dillan Cheema Home Meds and New Rx's Prescriptions: New prednisone 50 mg tablet 50 mg PO DAILY Qty: 5 0RF oseltamivir [Tamiflu] 75 mg capsule 75 mg PO BID 5 Days Qty: 10 0RF No Action lidocaine 5 % ointment 1 applic topical TID PRN (Reason: pain) Qty: 50 6RF buprenorphine HCl 150 mcg film 150 mcg buccal Q12H Qty: 60 5RF Jardiance 25 mg tablet 25 mg PO QAM Qty: 90 3RF Rx Instructions: dose increase 06/03/21 (DME) blood-glucose meter [OneTouch Verio Flex meter] Misc See Rx Instructions .ROUTE .MEDSUPPLY Qty: 1 0RF Rx Instructions: test once/day (DME) blood-glucose meter [OneTouch Ultra2 Meter] Misc See Rx Instructions .MEDSUPPLY Qty: 1 4RF Rx Instructions: Check blood sugar once a day (DME) OneTouch Verio test strips Strip See Rx Instructions .MEDSUPPLY Qty: 100 4RF Rx Instructions: Check blood sugar once a day (DME) lancets Misc See Rx Instructions .MEDSUPPLY Qty: 100 4RF Rx Instructions: Check blood sugar once a day oxycodone 10 mg tablet 10 mg PO BID MDD 2 tabs PRN (Reason: pain) Qty: 56 0RF naloxone 4 mg/actuation spray,non-aerosol 4 mg intranasal Q2M PRN (Reason: opioid overdose) Qty: 2 0RF Rx Instructions: spray 1 dose into ONE nostril; alternate nostrils w each dose until help arrives lisinopril 10 mg tablet 10 mg PO DAILY Qty: 90 3RF (DME) lancets [OneTouch Delica Lancets] 33 gauge misc See Rx Instructions .ROUTE .MEDSUPPLY Qty: 100 3RF Rx Instructions: test daily (DME) blood-glucose meter [OneTouch Verio Flex meter] Misc See Rx Instructions .ROUTE .MEDSUPPLY Qty: 1 0RF Rx Instructions: test daily (DME) OneTouch Verio test strips Strip See Rx Instructions .ROUTE .MEDSUPPLY Qty: 100 3RF Rx Instructions: test daily nitroglycerin 0.4 mg tablet, sublingual 0.4 mg sublingual Q5-15M PRN (Reason: chest pain) Qty: 60 0RF Rx Instructions: do not exceed 3 doses per episode 08/06/22 Per [facility] [place] Cardiology. -hb docusate sodium [Colace] 100 mg capsule 100 mg PO BID Qty: 180 3RF clopidogrel 75 mg tablet 75 mg PO DAILY metoprolol succinate 50 mg tablet extended release 24 hr 50 mg PO DAILY rosuvastatin 40 mg tablet 40 mg PO DAILY Incruse Ellipta 62.5 mcg/actuation blister with device 1 inh inhalation DAILY Qty: 90 3RF albuterol sulfate [Ventolin HFA] 90 mcg/actuation HFA aerosol inhaler 2 puff inhalation Q4H PRN (Reason: shortness of breath or wheezing) Qty: 8.5 7RF omeprazole 40 mg capsule,delayed release(DR/EC) 40 mg PO BID Qty: 180 2RF polyethylene glycol 3350 [Miralax] 17 gram/dose powder 17 g PO BID PRN (Reason: constipation) Qty: 119 0RF acetaminophen 500 mg tablet 1,000 mg PO Q8H PRN Qty: 90 0RF Rx Instructions: Take two tablets up to every 8 hours as needed for pain Discharge Instructions Instructions: Exacerbation of COPD, Flu, Adult ED Additional Instructions: At this time your workup shows no evidence of pneumonia, and your laboratory workup is stable. Please use the Symbicort inhaler, 2 puffs every 12 hours. Please continue taking your Spiriva as prescribed and your albuterol as prescribed. Please take the Tamiflu as prescribed for your influenza. As we discussed together, there may certainly be a worsening of your current disease state. If you notice any greater difficulty breathing, any fever chills or worsening symptoms, please return immediately for reassessment as this may necessitate admission. If you notice any worsening of your symptoms, or any new symptoms such as vomiting, diarrhea, fever, chills, shortness of breath, chest pain, numbness, weakness, or fainting , please return immediately to the emergency department for reevaluation. Please follow up with your primary care provider as soon as possible for reassessment and reevaluation. As always, it was a pleasure participating in your medical care today. Referrals: Bradley Carmichael MD [Primary Care Provider] - [facility] General Date/Time Provider Initiated Documentation: 06/24/24 11:59 . HPI Narrative: 59-year-old male with a past medical history of COPD, cardiac disease, previous stroke, diabetes mellitus, hypertension, high cholesterol, current smoker, who presents today for evaluation of shortness of breath. Patient states that for the last week he has had shortness of breath, mild burning in his chest, cough with productive sputum. He has been using his albuterol inhaler at home without any significant improvement. He denies fever or chills. He denies any significant chest pain otherwise. He denies any recent long trips surgeries or procedures. He denies any hemoptysis. No tearing or ripping sensation in his chest. No heaviness in his chest. He is not currently on antibiotics or steroids. Related Data Home Medications ?Medication ?Instructions ?Recorded ?Confirmed blood sugar diagnostic (SubtextTouch #100 ea 11/05/19 06/24/24 Verio test strips) blood-glucose meter (OneTouch #1 ea 11/05/19 06/24/24 Verio Flex Meter) lancets 33 gauge (OneTouch Delica #100 ea 11/05/19 06/24/24 Lancets) acetaminophen 500 mg tablet 1,000 mg (2 x 500 mg) PO Q8H PRN 07/27/22 06/24/24 pain #90 tabs nitroglycerin 0.4 mg sublingual 0.4 mg sublingual Q5-15M PRN chest 08/06/22 06/24/24 tablet pain #60 tabs polyethylene glycol 3350 17 17 g PO BID PRN constipation #119 08/09/22 06/24/24 gram/dose oral powder (Miralax) grams docusate sodium 100 mg capsule 100 mg PO BID #180 caps 08/20/22 06/24/24 (Colace) lidocaine 5 % topical ointment 1 applic topical TID PRN pain #50 11/15/22 06/24/24 grams naloxone 4 mg/actuation nasal spray 4 mg intranasal Q2M PRN opioid 01/02/23 06/24/24 overdose #2 ea empagliflozin 25 mg tablet 25 mg PO QAM #90 tabs 06/14/23 06/24/24 (Jardiance) blood sugar diagnostic (OneTouch #100 ea 07/06/23 06/24/24 Verio test strips) blood-glucose meter (OneTouch #1 ea 07/06/23 06/24/24 Ultra2 Meter) blood-glucose meter (OneTouch #1 ea 07/06/23 06/24/24 Verio Flex Meter) lancets #100 ea 07/06/23 06/24/24 clopidogrel 75 mg tablet 75 mg PO DAILY 07/12/23 06/24/24 metoprolol succinate 50 mg 50 mg PO DAILY 07/12/23 06/24/24 tablet,extended release 24 hr rosuvastatin 40 mg tablet 40 mg PO DAILY 07/12/23 06/24/24 lisinopril 10 mg tablet 10 mg PO DAILY #90 tabs 10/26/23 06/24/24 umeclidinium 62.5 mcg/actuation 1 inh inhalation DAILY #90 ea 02/03/24 06/24/24 blister powder for inhalation (Incruse Ellipta) buprenorphine HCl 150 mcg buccal 150 mcg buccal Q12H #60 ea 02/23/24 06/24/24 film albuterol sulfate 90 mcg/actuation 2 puff inhalation Q4H PRN 04/02/24 06/24/24 aerosol inhaler (Ventolin HFA) shortness of breath or wheezing #8.5 grams omeprazole 40 mg capsule,delayed 40 mg PO BID dyspepsia #180 06/19/24 06/24/24 release tab-caps oxycodone 10 mg tablet 10 mg PO BID PRN pain #56 tabs 06/21/24 06/24/24 oseltamivir 75 mg capsule (Tamiflu) 75 mg PO BID 5 days #10 caps 06/24/24 prednisone 50 mg tablet 50 mg PO DAILY #5 tabs 06/24/24 Previous Rx's ?Medication ?Instructions ?Recorded blood sugar diagnostic (OneTouch #100 ea 11/05/19 Verio test strips) blood-glucose meter (OneTouch #1 ea 11/05/19 Verio Flex Meter) lancets 33 gauge (OneTouch Delica #100 ea 11/05/19 Lancets) acetaminophen 500 mg tablet 1,000 mg (2 x 500 mg) PO Q8H PRN 07/27/22 pain #90 tabs nitroglycerin 0.4 mg sublingual 0.4 mg sublingual Q5-15M PRN chest 08/06/22 tablet pain #60 tabs polyethylene glycol 3350 17 17 g PO BID PRN constipation #119 08/09/22 gram/dose oral powder (Miralax) grams docusate sodium 100 mg capsule 100 mg PO BID #180 caps 08/20/22 (Colace) lidocaine 5 % topical ointment 1 applic topical TID PRN pain #50 11/15/22 grams naloxone 4 mg/actuation nasal spray 4 mg intranasal Q2M PRN opioid 01/02/23 overdose #2 ea empagliflozin 25 mg tablet 25 mg PO QAM #90 tabs 06/14/23 (Jardiance) blood sugar diagnostic (OneTouch #100 ea 07/06/23 Verio test strips) blood-glucose meter (OneTouch #1 ea 07/06/23 Ultra2 Meter) blood-glucose meter (OneTouch #1 ea 07/06/23 Verio Flex Meter) lancets #100 ea 07/06/23 lisinopril 10 mg tablet 10 mg PO DAILY #90 tabs 10/26/23 umeclidinium 62.5 mcg/actuation 1 inh inhalation DAILY #90 ea 02/03/24 blister powder for inhalation (Incruse Ellipta) buprenorphine HCl 150 mcg buccal 150 mcg buccal Q12H #60 ea 02/23/24 film albuterol sulfate 90 mcg/actuation 2 puff inhalation Q4H PRN 04/02/24 aerosol inhaler (Ventolin HFA) shortness of breath or wheezing #8.5 grams omeprazole 40 mg capsule,delayed 40 mg PO BID dyspepsia #180 06/19/24 release tab-caps oxycodone 10 mg tablet 10 mg PO BID PRN pain #56 tabs 06/21/24 oseltamivir 75 mg capsule (Tamiflu) 75 mg PO BID 5 days #10 caps 06/24/24 prednisone 50 mg tablet 50 mg PO DAILY #5 tabs 06/24/24 Allergies Allergy/AdvReac Type Severity Reaction Status Date / Time Penicillins Allergy Unknown unknown Verified 06/24/24 11:59 fentanyl AdvReac Severe Nausea Verified 06/24/24 11:59 semaglutide (From [facility]) AdvReac Severe Nausea Verified 06/24/24 11:59 General Stated Complaint: RespSymp CHIN: 3 Exam Narrative Exam Narrative: 1.Const: Well-nourished, Well-developed, appearing stated age 2.Eyes: PERRL, no conjunctival injection, and symmetrical lids. 3.ENT: Atraumatic external nose and ears. Moist MM. Neck: Symmetric, trachea midline, No thyromegaly. 4.CVS: +S1/S2, Peripheral pulses 2+ and equal in all extremities. Brisk capillary refill in all extremities. 5.RESP: Diffuse wheezes throughout. No rales or rhonchi. 6.GI: Soft, Nontender/Nondistended, No hepatosplenomegaly. No guarding or rebound. 7.MSK: Normocephalic/Atraumatic, Extremities w/o deformity or ttp No cyanosis or clubbing, Normal movement of all extremities 8.Skin: Warm, Dry. No rashes or lesions. 9.Neuro: laboratory scientist II-XII grossly intact. Sensation grossly intact, no focal neurologic deficits. 10.Psych: (AAO) x3. Appropriate mood and affect Course Vital Signs Vital signs: Vital Signs Temperature 36.8 C 06/24/24 11:46 Pulse 90 06/24/24 11:46 Respiratory Rate 28 H 06/24/24 11:46 Blood Pressure 180/89 H 06/24/24 11:46 Pulse Oximetry 93 06/24/24 11:46 Temperature 36.8 C 06/24/24 11:46 Temperature Source Oral 06/24/24 11:46 Pulse 90 06/24/24 11:46 Respiratory Rate 28 H 06/24/24 11:46 Blood Pressure 180/89 H 06/24/24 11:46 Blood Pressure Position Sitting 06/24/24 11:46 Pulse Oximetry 93 06/24/24 11:46 Oxygen Delivery Method Room Air 06/24/24 11:46 Oxygen Flow Rate 0 06/24/24 11:46 Pain Level 0 06/24/24 11:46 Medical Decision Making 59-year-old male with a past medical history of COPD, cardiac disease, previous stroke, diabetes mellitus, hypertension, high cholesterol, current smoker, who presents today for evaluation of shortness of breath. Patient states that for the last week he has had shortness of breath, mild burning in his chest, cough with productive sputum. He has been using his albuterol inhaler at home without any significant improvement. He denies fever or chills. He denies any significant chest pain otherwise. He denies any recent long trips surgeries or procedures. He denies any hemoptysis. No tearing or ripping sensation in his chest. No heaviness in his chest. He is not currently on antibiotics or steroids. Exam demonstrates stable appearing male, no hypoxemia, he is mildly hypertensive. He is tachypneic. Diffuse wheezes throughout, no rales or rhonchi. Oxygen saturation is at 93%. Symptoms concerning for COPD exacerbation, differential also includes potential pneumonia. Cardiac etiology less likely. No pitting edema to suggest CHF. No pleuritic chest pain to suggest PE. No tearing or ripping sensation to suggest aortic dissection. Will evaluate for concerning etiologies, we will give Solu-Medrol, 2 breathing treatments, will monitor closely and reassess. EKG shows no evidence of STEMI. 2:22 PM Chest x-ray negative for acute process, laboratory workup benign, no white count or bandemia. Electrolytes normal, VBG demonstrates no significant retention. There is actually mild respiratory alkalosis without a respiratory acidosis. Serial troponins normal. proBNP slightly elevated at 1700, but patient shows no clinical evidence to suggest CHF exacerbation at this time. Patient's influenza test is positive. After breathing treatments and steroids he is feeling much better. Oxygenation hovers around 93 to 95%. I did offer admission as an opportunity for the patient, however he has notably declined unequivocally. He is requesting to be discharged home. We will start him on Tamiflu, steroids, give a Symbicort inhaler to use in conjunction with his albuterol. I made it very clear to the patient the importance of prompt return if he has any worsening of his symptoms. As there is no pneumonia at this time, he certainly is at risk for developing pneumonia and we discussed the signs and symptoms which would reflect this. Patient's respiratory status remained stable at this point, and appropriate for outpatient home treatment. No hypoxemia or tachypnea. Lung sounds notably improved on reassessment. Discussed red flags which to return. I have extensively reviewed the treatment plan and discharge instructions with the patient. I have addressed all patient concerns at this time. The patient was made aware of what symptoms to monitor for that would warrant a return to the emergency department. Discussed the plan with the patient, they demonstrate verbal understanding and agreement with our assessment and plan at this time. The documentation in this chart was dictated using [employer] dictation software. Please excuse any dictation errors. FINDINGS: Lungs: Lungs are clear with no infiltrate or nodule. Pleural spaces: Unremarkable. No pleural effusion. No pneumothorax. Heart/Mediastinum: Cardiomediastinal silhouette is normal. Bones/joints: Unremarkable. IMPRESSION: No active cardiopulmonary disease. Thank you for allowing us to participate in the care of your patient. Dictated and Authenticated by: Kenneth Sarmiento MD 06/24/2024 1:47 PM Eastern Time ([place] & [place]) Quality:SDOH Health Related Social Needs: No Data to Display PFSH All Active Problems (Updated 06/24/24 @ 14:19 by Dillan Cheema DO) COPD exacerbation (Acute) Influenza (Acute) Osteoarthritis of right knee (Acute) COPD (chronic obstructive pulmonary disease) (Chronic) Nicotine dependence (Acute) ASCVD (arteriosclerotic cardiovascular disease) (Acute) Chronic cough (Acute) Right knee pain (Acute) History of total left knee replacement (Acute 07/27/22) Post-COVID chronic dyspnea (Acute) Difficulty breathing (Acute) Left knee DJD (Acute) Controlled diabetes mellitus (Acute) Trochanteric bursitis of left hip (Acute) s/p open debridement/excision of left trochanteric bursa and iliotibial band lengthening with excision of heterotopic ossification from left hip with repair of abductor musculature 12/09/2021 [facility]PO MEDROL 07/26/23 Postoperative heterotopic ossification (Acute) s/p open debridement/excision of left trochanteric bursa and iliotibial band lengthening with excision of heterotopic ossification from left hip with repair of abductor musculature 12/09/2021 Obesity (Chronic) he needs to quit drinking soda Chronic pain (Acute 09/15/16) Gout (Acute 04/19/14) GERD (gastroesophageal reflux disease) (Chronic 11/25/14) Smoker (Chronic 06/05/13) Acute CVA (cerebrovascular accident) (Acute) Pmxytj-gt-vdedzqxxu syndrome (Acute) Non-compliance (Chronic) Pain in left hip (Acute) BCC (basal cell carcinoma), face (Acute ~11/12/19) 11/12/19 [facility] [place] (LEFT CHEEK) Viral illness (Acute) Rule out coronavirus 19 Lesion of right [place] kidney (Acute) Skin lesion (Acute) Abdominal pain (Acute) Diabetes mellitus (Chronic) Hypertension (Chronic) Well adult (Chronic) health compromised by worsening obesity History of shoulder surgery (Acute) Status post carpal tunnel release (Acute) Dental abscess (Acute 05/31/17) Facial cellulitis (Acute 05/31/17) Surgical History S/P cardiac catheterization 07/2022 [facility] [place] History of percutaneous coronary intervention 07/2022 at [facility] [place] Closed comminuted intra-articular fracture of distal end of femur S/P ORIF: 07/05/2021 shoulder repair left Open Carpal Tunnel release b/l Fracture, Open Treatment 10/30/14 [facility] [place]; ORIF L HIP REDUCTION AND ORIF L FEMUR FX Family History Mother No problems noted. Father Diabetes Essential hypertension Heart disease Hyperlipidemia Stroke Cancer Sister Asthma Maternal Grandfather Alcohol abuse Depression Paternal Grandfather , 90 No problems noted. Maternal Grandmother , 96 Asthma Diabetes Heart disease Paternal Grandmother , 78 Diabetes Essential hypertension Stroke Daughter Substance abuse Essential hypertension Depression Social History Smoking/Tobacco Use Status: Current every day Tobacco Type: cigarettes Tobacco: How many years used: 40 Quit status: considering quitting Second Hand Exposure: Yes Smoking risk assessment performed?: Yes Alcohol Intake: current Alcohol Intake frequency: holidays/special occasions only Drug use: Daily Substance use type: marijuana Caregiver/Support person: No Household members: significant other Housing: other Details: mobile home Communication Needs: None Pets and animals: Yes Pets and animals: dog(s) Sexually active: Yes Do you think of yourself as: straight/heterosexual Current gender identity: male What is your relationship status?: living with partner How often do you talk on the phone with friends or family?: three or more times per week How often do you get together with friends or relatives?: once per week How often do you attend moravian or anabaptist services?: decline to answer Do you belong to any clubs or organized social groups?: decline to answer Panel score (0-1 are the most socially isolated patients): 2 What type of physical activity do you participate in: decline to answer Duration: < 15 minutes/day Geovanna/Mosque: None Special geovanna needs: No Seatbelt use: always Helmet use: Yes Helmet use: sometimes Drive intox or ride w/intox otr company driver: No Do you feel safe at home: Yes Do you feel safe in your relationship?: Yes
[2024-06-24 12:34] LABS: Abs Immature Grans 0.03 10^3/uL (0.0-0.06); Absolute Basophil Count 0.03 10^3/uL (0.0-0.2); Absolute Lymphocyte Count 0.71 10^3/uL (1.2-3.4); Absolute Monocyte Count 0.74 10^3/uL (0.1-0.8); Basophils % 0.3 %; HCT 45.8 % (40.0-50.0); HGB 15.1 g/dL (13.5-17.5); Immature Grans % 0.3 %; Lymphocytes % 7.7 %; MCH 28.5 pg (27.0-33.0); MCV 86 fL (80-95); MPV 9.7 fL (8.0-11.0); Neutrophils % 83.7 %; Platelet Count 222 10^3/uL (130-400); RDW 15.9 % (11.8-14.1); RDW-SD 50.4 fL; WBC 9.21 10^3/uL (4.4-10.8)
[2024-06-24 12:35] LABS: BE (Venous) 1 mmol/L (-2-3); HCO3 (Venous) 25 mmol/L (23-28); O2 Sat (Venous) 96 %; TCO2 (Venous) 22 mmol/L (24-29); pCO2 (Venous) 37 mmHg (41-51); pH (Venous) 7.45 (7.31-7.41); pO2 (Venous) 71 mmHg
[2024-06-24] MEDS: methylPREDNISolone SUCC 125 MG VIAL IVP (12:35)
[2024-06-24] MEDS: Normal Saline Flush 10 ML SYR IVP (12:35)
[2024-06-24] MEDS: Albuterol/Ipratropium 3 ML UPD VIAL 6 ML UPD (12:40)
[2024-06-24 12:50] LABS: INR 1.1 (0.9-1.1); PTT Activated 25.2 sec (20.6-30.2); Prothrombin Time 10.8 sec (9.1-11.1)
[2024-06-24 12:59] LABS: ALT 15 U/L (16-63); AST 6 U/L (15-37); Albumin 3.4 g/dL (3.4-5.0); Alkaline Phosphatase 85 U/L (46-116); Anion Gap 9.5 mmol/L (3-11); BUN 14 mg/dL (7-18); Bilirubin, Total 0.67 mg/dL (0.2-1.0); CO2 26.5 mmol/L (21.0-32.0); CREATININE 1.1 mg/dL (0.70-1.30); Chloride 100 mmol/L (98-107); Estimated GFR 76.37 (mL/min/1.73m2); Glucose 218 mg/dL (74-106); NT-proBNP 1702 pg/mL (<300); Potassium 3.7 mmol/L (3.5-5.1); Sodium 136 mmol/L (136-145); Total Protein 7.8 g/dL (6.4-8.2); Troponin I 8 ng/L (<or=76)
[2024-06-24 13:17] LABS: COVID-19 PCR Negative (Negative); Influenza A PCR Positive (Negative); Influenza B PCR Negative (Negative); RSV PCR Negative (Negative)
[2024-06-24 13:23] LABS: Source Nasopharynx
[2024-06-24 13:45] LABS: Troponin I 10 ng/L (<or=76)
--- NOTE | 2024-06-24 13:47 | DI.VRAD_ITS ---
PROCEDURE INFORMATION: Exam: XR Chest Exam date and time: 06/24/2024 1:24 PM Age: 59 years old Clinical indication: Other: Cough, SOB, eval for pneumonia TECHNIQUE: Imaging protocol: Radiologic exam of the chest. Views: 1 view. COMPARISON: CR XR PORTABLE CHEST AP 10/20/2023 6:00 PM FINDINGS: Lungs: Lungs are clear with no infiltrate or nodule. Pleural spaces: Unremarkable. No pleural effusion. No pneumothorax. Heart/Mediastinum: Cardiomediastinal silhouette is normal. Bones/joints: Unremarkable. IMPRESSION: No active cardiopulmonary disease. Dictated and Authenticated by: Kenneth Sarmiento MD. Orderin Anette Grimaldo MD
[2024-06-24] MEDS: Budesonide/Formoterol 160/4.5 6 GM 60 PUFF INH IH (14:32)
[2024-06-24] MEDS: Oseltamivir 75 MG CAP PO (14:32)
[2024-06-24] MEDS: Inhaler, Assist Device 1 EACH MC (14:41)
== END 2024-06-24 14:46 | disposition home or self-care (01) ==
PROVIDERS: Emergency Provider Student in an Organized Health Care Education/Training Program; PCP Family Medicine
DX: J10.1 Influenza due to other identified influenza virus with other respiratory manifestations (principal); J44.1 Chronic obstructive pulmonary disease with (acute) exacerbation; I10 Essential (primary) hypertension; E78.5 Hyperlipidemia, unspecified; E11.9 Type 2 diabetes mellitus without complications; I25.2 Old myocardial infarction; Z86.73 Personal history of transient ischemic attack (TIA), and cerebral infarction without residual deficits; Z79.84 Long term (current) use of oral hypoglycemic drugs; Z79.01 Long term (current) use of anticoagulants; F17.210 Nicotine dependence, cigarettes, uncomplicated
CPT/HCPCS: 36415; 80053; 82805; 87637; 93005; 94640; 96374; 99285; 71045; 83880; 84484; 85025; 85610; 85730; 93010; 99284; J2919; J7620

== ENCOUNTER 2024-08-31 08:55 | Emergency (ER) | payer MEDICARE, SELFPAY ==
[2024-08-31] VITALS (9 sets, daily range): BP systolic 175–179; BP diastolic 74; PULSE 63–67; RESP 5–21; TEMP 36.7; O2SAT 90–97
--- NOTE | 2024-08-31 08:45 | RT.EKG_ITS ---
APPROVED REPORT Exam: Resting ECG Reason for Exam: Dyspnea Patient Location: E HR:72 bpm ECG Measurements Heart Rate 72 AXIS NV 172 P 54 QRSd 87 QRS 41 QT 393 T 27 QTc 431 Conclusion Sinus rhythm 72 no stemi
--- NOTE | 2024-08-31 09:15 | DI.RAD_ITS ---
Exam(s) XR PORTABLE CHEST AP EXAM: XR PORTABLE CHEST AP CLINICAL HISTORY: SOB. TECHNIQUE: 2D digital imaging was performed. COMPARISON: No exams were available for comparison FINDINGS: Single AP portable view. Heart size is upper normal. The mediastinum is not widened. Lungs are clear. No infiltrates nor obvious pleural effusions. IMPRESSION: No acute pulmonary findings on this single AP portable view of the chest. DATA REPOSITORY: RADIATION DOSE DELIVERED:
--- NOTE | 2024-08-31 09:28 | ED.GENADUL_ITS ---
Discharge Plan Disposition Patient Disposition: Home Condition: Stable Discharge Details Clinical Impression: COPD (chronic obstructive pulmonary disease) Primary Care Provider: Bradley Carmichael ED Provider: Avni Naqvi Home Meds and New Rx's Prescriptions: New prednisone 20 mg tablet 40 mg PO DAILY 4 Days Qty: 8 0RF No Action lidocaine 5 % ointment 1 applic topical TID PRN (Reason: pain) Qty: 50 6RF (DME) blood-glucose meter [OneTouch Verio Flex meter] Misc See Rx Instructions .ROUTE .MEDSUPPLY Qty: 1 0RF Rx Instructions: test once/day (DME) OneTouch Verio test strips Strip See Rx Instructions .MEDSUPPLY Qty: 100 4RF Rx Instructions: Check blood sugar once a day (DME) lancets Misc See Rx Instructions .MEDSUPPLY Qty: 100 4RF Rx Instructions: Check blood sugar once a day naloxone 4 mg/actuation spray,non-aerosol 4 mg intranasal Q2M PRN (Reason: opioid overdose) Qty: 2 0RF Rx Instructions: spray 1 dose into ONE nostril; alternate nostrils w each dose until help arrives lisinopril 10 mg tablet 10 mg PO DAILY Qty: 90 3RF (DME) lancets [OneTouch Delica Lancets] 33 gauge misc See Rx Instructions .ROUTE .MEDSUPPLY Qty: 100 3RF Rx Instructions: test daily nitroglycerin 0.4 mg tablet, sublingual 0.4 mg sublingual Q5-15M PRN (Reason: chest pain) Qty: 60 0RF Rx Instructions: do not exceed 3 doses per episode 08/06/22 Per [facility] [place] Cardiology. -hb docusate sodium [Colace] 100 mg capsule 100 mg PO BID Qty: 180 3RF clopidogrel 75 mg tablet 75 mg PO DAILY metoprolol succinate 50 mg tablet extended release 24 hr 50 mg PO DAILY rosuvastatin 40 mg tablet 40 mg PO DAILY omeprazole 40 mg capsule,delayed release(DR/EC) 40 mg PO BID Qty: 180 2RF buprenorphine HCl 150 mcg film 150 mcg buccal Q12H Qty: 60 5RF oxycodone 10 mg tablet 10 mg PO BID MDD 2 tabs PRN (Reason: pain) Qty: 56 0RF albuterol sulfate [Ventolin HFA] 90 mcg/actuation HFA aerosol inhaler 2 puff inhalation Q4H PRN (Reason: shortness of breath or wheezing) Qty: 8.5 7RF Jardiance 25 mg tablet 25 mg PO QAM Qty: 90 3RF Rx Instructions: dose increase 06/03/21 budesonide-formoterol [Breyna] 160-4.5 mcg/actuation HFA aerosol inhaler 2 puff inhalation BID Qty: 10.2 2RF polyethylene glycol 3350 [Miralax] 17 gram/dose powder 17 g PO BID PRN (Reason: constipation) Qty: 119 0RF acetaminophen 500 mg tablet 1,000 mg PO Q8H PRN Qty: 90 0RF Rx Instructions: Take two tablets up to every 8 hours as needed for pain Discharge Instructions Instructions: COPD Exacerbation, Adult ED Additional Instructions: Viral testing for flu and COVID are negative. Chest x-ray does not reveal pneumonia. Steroid prescription sent to the pharmacy, please pick this up to start tomorrow please return with fever, worsening shortness of breath, low oxygen saturation. Otherwise follow-up with your primary care provider for re- evaluation of chronic conditions HPI General Date/Time Provider Initiated Documentation: 08/31/24 09:17 . Limitations to Documentation: no limitations . Information obtained by: patient . HPI Narrative: 59-year-old gentleman with past medical history of CAD, COPD, CVA presents for evaluation of shortness of breath. He reports that he has had shortness of breath for years. He is unable to tell me if it is acutely worsened today. He reports that he always produces mucus and that it is clear. He states that he does not use oxygen. He states that he used his albuterol inhaler 5 times today but it never works. He denies any chest pain. He denies any fever. Related Data Home Medications ?Medication ?Instructions ?Recorded ?Confirmed lancets 33 gauge (OneTouch Deldelma #100 ea 11/05/19 08/31/24 Lancets) acetaminophen 500 mg tablet 1,000 mg (2 x 500 mg) PO Q8H PRN 07/27/22 08/31/24 pain #90 tabs nitroglycerin 0.4 mg sublingual 0.4 mg sublingual Q5-15M PRN chest 08/06/22 08/31/24 tablet pain #60 tabs polyethylene glycol 3350 17 17 g PO BID PRN constipation #119 08/09/22 08/31/24 gram/dose oral powder (Miralax) grams docusate sodium 100 mg capsule 100 mg PO BID #180 caps 08/20/22 08/31/24 (Colace) lidocaine 5 % topical ointment 1 applic topical TID PRN pain #50 11/15/22 08/31/24 grams naloxone 4 mg/actuation nasal spray 4 mg intranasal Q2M PRN opioid 01/02/23 08/31/24 overdose #2 ea blood sugar diagnostic (OneTouch #100 ea 07/06/23 08/31/24 Verio test strips) blood-glucose meter (OneTouch #1 ea 07/06/23 08/31/24 Verio Flex Meter) lancets #100 ea 07/06/23 08/31/24 clopidogrel 75 mg tablet 75 mg PO DAILY 07/12/23 08/31/24 metoprolol succinate 50 mg 50 mg PO DAILY 07/12/23 08/31/24 tablet,extended release 24 hr rosuvastatin 40 mg tablet 40 mg PO DAILY 07/12/23 08/31/24 lisinopril 10 mg tablet 10 mg PO DAILY #90 tabs 10/26/23 08/31/24 omeprazole 40 mg capsule,delayed 40 mg PO BID dyspepsia #180 06/19/24 08/31/24 release tab-caps albuterol sulfate 90 mcg/actuation 2 puff inhalation Q4H PRN 08/20/24 08/31/24 aerosol inhaler (Ventolin HFA) shortness of breath or wheezing #8.5 grams buprenorphine HCl 150 mcg buccal 150 mcg buccal Q12H #60 ea 08/20/24 08/31/24 film oxycodone 10 mg tablet 10 mg PO BID PRN pain #56 tabs 08/20/24 08/31/24 empagliflozin 25 mg tablet 25 mg PO QAM #90 tabs 08/21/24 08/31/24 (Jardiance) budesonide-formoterol HFA 160 2 puff inhalation BID #10.2 grams 08/23/24 mcg-4.5 mcg/actuation aerosol inhaler (Breyna) prednisone 20 mg tablet 40 mg (2 x 20 mg) PO DAILY 4 days 08/31/24 #8 tabs Previous Rx's ?Medication ?Instructions ?Recorded lancets 33 gauge (OneTouch Delica #100 ea 11/05/19 Lancets) acetaminophen 500 mg tablet 1,000 mg (2 x 500 mg) PO Q8H PRN 07/27/22 pain #90 tabs nitroglycerin 0.4 mg sublingual 0.4 mg sublingual Q5-15M PRN chest 08/06/22 tablet pain #60 tabs polyethylene glycol 3350 17 17 g PO BID PRN constipation #119 08/09/22 gram/dose oral powder (Miralax) grams docusate sodium 100 mg capsule 100 mg PO BID #180 caps 08/20/22 (Colace) lidocaine 5 % topical ointment 1 applic topical TID PRN pain #50 11/15/22 grams naloxone 4 mg/actuation nasal spray 4 mg intranasal Q2M PRN opioid 01/02/23 overdose #2 ea blood sugar diagnostic (OneTouch #100 ea 07/06/23 Verio test strips) blood-glucose meter (OneTouch #1 ea 07/06/23 Verio Flex Meter) lancets #100 ea 07/06/23 lisinopril 10 mg tablet 10 mg PO DAILY #90 tabs 10/26/23 omeprazole 40 mg capsule,delayed 40 mg PO BID dyspepsia #180 06/19/24 release tab-caps albuterol sulfate 90 mcg/actuation 2 puff inhalation Q4H PRN 08/20/24 aerosol inhaler (Ventolin HFA) shortness of breath or wheezing #8.5 grams buprenorphine HCl 150 mcg buccal 150 mcg buccal Q12H #60 ea 08/20/24 film oxycodone 10 mg tablet 10 mg PO BID PRN pain #56 tabs 08/20/24 empagliflozin 25 mg tablet 25 mg PO QAM #90 tabs 08/21/24 (Jardiance) budesonide-formoterol HFA 160 2 puff inhalation BID #10.2 grams 08/23/24 mcg-4.5 mcg/actuation aerosol inhaler (Breyna) prednisone 20 mg tablet 40 mg (2 x 20 mg) PO DAILY 4 days 08/31/24 #8 tabs Allergies Allergy/AdvReac Type Severity Reaction Status Date / Time Penicillins Allergy Unknown unknown Verified 08/31/24 09:17 fentanyl AdvReac Severe Nausea Verified 08/31/24 09:17 semaglutide (From Rybelsus) AdvReac Severe Nausea Verified 08/31/24 09:17 General Stated Complaint: SOB CHIN: 3 Exam Narrative Exam Narrative: Review of Systems: All systems reviewed & are unremarkable except as noted in HPI and below Well-developed, no acute distress NCAT RRR Expiratory wheezes, no hypoxia or tachypnea, no increased work of breathing Nondistended abdomen Extremities w/o edema Flat affect, short answers Course Vital Signs Vital signs: Vital Signs Temperature 36.7 C 08/31/24 09:11 Pulse 65 08/31/24 09:11 Respiratory Rate 16 08/31/24 09:11 Blood Pressure 179/74 H 08/31/24 09:11 Pulse Oximetry 93 08/31/24 09:11 Temperature 36.7 C 08/31/24 09:11 Temperature Source Oral 08/31/24 09:11 Pulse 65 08/31/24 09:11 Respiratory Rate 16 08/31/24 09:14 Respiratory Effort Non-Labored, Short of Breath 08/31/24 09:14 Respiratory Depth Normal 08/31/24 09:14 Respiratory Pattern Normal 08/31/24 09:14 Blood Pressure 179/74 H 08/31/24 09:11 Blood Pressure Position Sitting 08/31/24 09:11 Pulse Oximetry 93 08/31/24 09:11 Oxygen Delivery Method Room Air 08/31/24 09:11 Oxygen Flow Rate 0 08/31/24 09:11 Pain Level 0 08/31/24 09:11 Medical Decision Making Emergent evaluation of shortness of breath. Patient is unable or unwilling to provide any additional history. It is unclear what acute symptoms are causing his presentation today. The does not have fever or significant respiratory distress or concerns for respiratory failure. he is having wheezing noted. Will give steroids and bronchodilator treatment. Patient had previously been on a Flovent inhaler, but his insurance will not cover this. I doubt pneumonia or CHF, but patient does have significant cardiac disease history. EKG was obtained and independently interpreted: Sinus 72 normal axis no acute ischemic changes. Will get chest x-ray to evaluate for consolidative process. Lab work reviewed, no significant abnormalities. Troponin and BNP are not elevated. The patient chest x-ray does not reveal a focal consolidation. Feels better after breathing treatment. Will discharge with steroid. Recommend follow-up with PCP for ongoing issues and medication management Quality:SDOH Health Related Social Needs: No Data to Display PFSH All Active Problems (Updated 08/31/24 @ 10:34 by Avni Naqvi MD) Influenza A (Acute) Osteoarthritis of right knee (Acute) COPD (chronic obstructive pulmonary disease) (Chronic) Nicotine dependence (Acute) ASCVD (arteriosclerotic cardiovascular disease) (Acute) Chronic cough (Acute) Right knee pain (Acute) History of total left knee replacement (Acute 07/27/22) Post-COVID chronic dyspnea (Acute) Difficulty breathing (Acute) Left knee DJD (Acute) Controlled diabetes mellitus (Acute) Trochanteric bursitis of left hip (Acute) s/p open debridement/excision of left trochanteric bursa and iliotibial band lengthening with excision of heterotopic ossification from left hip with repair of abductor musculature 12/09/2021 DEPO MEDROL 07/26/23 Postoperative heterotopic ossification (Acute) s/p open debridement/excision of left trochanteric bursa and iliotibial band lengthening with excision of heterotopic ossification from left hip with repair of abductor musculature 12/09/2021 Obesity (Chronic) he needs to quit drinking soda Chronic pain (Acute 09/15/16) Gout (Acute 04/19/14) GERD (gastroesophageal reflux disease) (Chronic 11/25/14) Smoker (Chronic 06/05/13) Acute CVA (cerebrovascular accident) (Acute) Zwoucy-ra-awvoovlcn syndrome (Acute) Non-compliance (Chronic) Pain in left hip (Acute) BCC (basal cell carcinoma), face (Acute ~11/12/19) 11/12/19 [facility] [place] (LEFT CHEEK) Viral illness (Acute) Rule out coronavirus 19 Lesion of right [place] kidney (Acute) Skin lesion (Acute) Abdominal pain (Acute) Diabetes mellitus (Chronic) Hypertension (Chronic) Well adult (Chronic) health compromised by worsening obesity History of shoulder surgery (Acute) Status post carpal tunnel release (Acute) Dental abscess (Acute 05/31/17) Facial cellulitis (Acute 05/31/17) Surgical History S/P cardiac catheterization 07/2022 [facility] [place] History of percutaneous coronary intervention 07/2022 at [facility] [place] Closed comminuted intra-articular fracture of distal end of femur S/P ORIF: 07/05/2021 shoulder repair left Open Carpal Tunnel release b/l Fracture, Open Treatment 10/30/14 [facility] [place]; ORIF L HIP REDUCTION AND ORIF L FEMUR FX Family History Mother No problems noted. Father Diabetes Essential hypertension Heart disease Hyperlipidemia Stroke Cancer Sister Asthma Maternal Grandfather Alcohol abuse Depression Paternal Grandfather , 90 No problems noted. Maternal Grandmother , 96 Asthma Diabetes Heart disease Paternal Grandmother , 78 Diabetes Essential hypertension Stroke Daughter Substance abuse Essential hypertension Depression Social History Smoking/Tobacco Use Status: Current every day Tobacco Type: cigarettes Tobacco: How many years used: 40 Quit status: considering quitting Second Hand Exposure: Yes Smoking risk assessment performed?: Yes Alcohol Intake: current Alcohol Intake frequency: holidays/special occasions only Drug use: Daily Substance use type: marijuana Caregiver/Support person: No Household members: significant other Housing: other Details: mobile home Communication Needs: None Pets and animals: Yes Pets and animals: dog(s) Sexually active: Yes Do you think of yourself as: straight/heterosexual Current gender identity: male What is your relationship status?: living with partner How often do you talk on the phone with friends or family?: three or more times per week How often do you get together with friends or relatives?: once per week How often do you attend shinto or jehovah's witness services?: decline to answer Do you belong to any clubs or organized social groups?: decline to answer Panel score (0-1 are the most socially isolated patients): 2 What type of physical activity do you participate in: decline to answer Duration: < 15 minutes/day Geovanna/Alevism: None Special geovanna needs: No Seatbelt use: always Helmet use: Yes Helmet use: sometimes Drive intox or ride w/intox team cdl driver: No Do you feel safe at home: Yes Do you feel safe in your relationship?: Yes
[2024-08-31] MEDS: methylPREDNISolone SUCC 125 MG VIAL IVP (09:34)
[2024-08-31] MEDS: Normal Saline Flush 10 ML SYR IVP (09:34)
[2024-08-31] MEDS: Albuterol 2.5 MG/3 ML INH SOLN VIAL UPD (09:34)
[2024-08-31 09:51] LABS: Abs Immature Grans 0.03 10^3/uL (0.0-0.06); Absolute Basophil Count 0.05 10^3/uL (0.0-0.2); Absolute Eosinophil Count 0.09 10^3/uL (0.0-0.7); Absolute Lymphocyte Count 2.24 10^3/uL (1.2-3.4); Absolute Monocyte Count 0.63 10^3/uL (0.1-0.8); Absolute Neutrophil Count 5.35 10^3/uL (1.2-6.7); Basophils % 0.6 %; Eosinophils % 1.1 %; HCT 44.6 % (40.0-50.0); HGB 14.1 g/dL (13.5-17.5); Immature Grans % 0.4 %; Lymphocytes % 26.7 %; MCH 29.4 pg (27.0-33.0); MCHC 31.6 % (32.0-36.0); MCV 93 fL (80-95); MPV 9.4 fL (8.0-11.0); Monocytes % 7.5 %; Neutrophils % 63.7 %; Platelet Count 213 10^3/uL (130-400); RDW 15.8 % (11.8-14.1); RDW-SD 54.1 fL; WBC 8.39 10^3/uL (4.4-10.8)
[2024-08-31 10:20] LABS: ALT 12 U/L (16-63); AST 8 U/L (15-37); Albumin 3.1 g/dL (3.4-5.0); Alkaline Phosphatase 77 U/L (46-116); Anion Gap 5.3 mmol/L (3-11); BUN 15 mg/dL (7-18); Bilirubin, Total 0.3 mg/dL (0.2-1.0); CO2 31.7 mmol/L (21.0-32.0); CREATININE 1.2 mg/dL (0.70-1.30); Calcium 8.8 mg/dL (8.5-10.1); Chloride 105 mmol/L (98-107); Glucose 216 mg/dL (74-106); NT-proBNP 345 pg/mL (<300); Potassium 3.7 mmol/L (3.5-5.1); Sodium 142 mmol/L (136-145); Total Protein 6.8 g/dL (6.4-8.2); Troponin I 8 ng/L (<or=76)
== END 2024-08-31 10:50 | disposition home or self-care (01) ==
PROVIDERS: Emergency Provider Emergency Medicine; PCP Family Medicine
DX: J44.1 Chronic obstructive pulmonary disease with (acute) exacerbation (principal); I10 Essential (primary) hypertension; I25.10 Atherosclerotic heart disease of native coronary artery without angina pectoris; E11.9 Type 2 diabetes mellitus without complications; F17.210 Nicotine dependence, cigarettes, uncomplicated; Z86.73 Personal history of transient ischemic attack (TIA), and cerebral infarction without residual deficits; Z79.02 Long term (current) use of antithrombotics/antiplatelets; Z79.84 Long term (current) use of oral hypoglycemic drugs
CPT/HCPCS: 36415; 80053; 87426; 93005; 94640; 96374; 99285; 71045; 83735; 83880; 84484; 85025; 93010; J2919; J7613

== ENCOUNTER 2024-09-02 04:20 | Emergency (ER) | payer MEDICARE, SELFPAY ==
[2024-09-02] VITALS (52 sets, daily range): BP systolic 165–213; BP diastolic 62–92; PULSE 38–76; RESP 12–26; TEMP 36.5; O2SAT 88–97
--- NOTE | 2024-09-02 04:15 | RT.EKG_ITS ---
APPROVED REPORT Exam: Resting ECG Reason for Exam: SOB Patient Location: E HR:67 bpm ECG Measurements Heart Rate 67 AXIS NJ 178 P 59 QRSd 93 QRS 35 QT 403 T 33 QTc 425 Conclusion Sinus rhythm...normal P axis, V-rate 60- [address] segment or T wave abnormaliteis to suggest occlusive RI
--- NOTE | 2024-09-02 04:54 | ED.GENADUL_ITS ---
Discharge Plan Disposition Patient Disposition: Home Condition: Good Discharge Details Clinical Impression: Asthma exacerbation in COPD Primary Care Provider: Bradley Carmichael ED Provider: Kristal Butts Meds and New Rx's Prescriptions: New levofloxacin 500 mg tablet 500 mg PO DAILY Qty: 4 0RF Continued (DME) blood-glucose meter [OneTouch Verio Flex meter] Misc See Rx Instructions .ROUTE .MEDSUPPLY Qty: 1 0RF Rx Instructions: test once/day (DME) OneTouch Verio test strips Strip See Rx Instructions .MEDSUPPLY Qty: 100 4RF Rx Instructions: Check blood sugar once a day (DME) lancets Misc See Rx Instructions .MEDSUPPLY Qty: 100 4RF Rx Instructions: Check blood sugar once a day naloxone 4 mg/actuation spray,non-aerosol 4 mg intranasal Q2M PRN (Reason: opioid overdose) Qty: 2 0RF Rx Instructions: spray 1 dose into ONE nostril; alternate nostrils w each dose until help arrives lisinopril 10 mg tablet 10 mg PO DAILY Qty: 90 3RF (DME) lancets [OneTouch Delica Lancets] 33 gauge misc See Rx Instructions .ROUTE .MEDSUPPLY Qty: 100 3RF Rx Instructions: test daily nitroglycerin 0.4 mg tablet, sublingual 0.4 mg sublingual Q5-15M PRN (Reason: chest pain) Qty: 60 0RF Rx Instructions: do not exceed 3 doses per episode 08/06/[address] [facility] Cardiology. -hb docusate sodium [Colace] 100 mg capsule 100 mg PO BID Qty: 180 3RF clopidogrel 75 mg tablet 75 mg PO DAILY metoprolol succinate 50 mg tablet extended release 24 hr 50 mg PO DAILY rosuvastatin 40 mg tablet 40 mg PO DAILY omeprazole 40 mg capsule,delayed release(DR/EC) 40 mg PO BID Qty: 180 2RF buprenorphine HCl 150 mcg film 150 mcg buccal Q12H Qty: 60 5RF oxycodone 10 mg tablet 10 mg PO BID MDD 2 tabs PRN (Reason: pain) Qty: 56 0RF albuterol sulfate [Ventolin HFA] 90 mcg/actuation HFA aerosol inhaler 2 puff inhalation Q4H PRN (Reason: shortness of breath or wheezing) Qty: 8.5 7RF Jardiance 25 mg tablet 25 mg PO QAM Qty: 90 3RF Rx Instructions: dose increase 06/03/21 budesonide-formoterol [Breyna] 160-4.5 mcg/actuation HFA aerosol inhaler 2 puff inhalation BID Qty: 10.2 2RF polyethylene glycol 3350 [Miralax] 17 gram/dose powder 17 g PO BID PRN (Reason: constipation) Qty: 119 0RF prednisone 20 mg tablet 40 mg PO DAILY 4 Days Qty: 8 0RF acetaminophen 500 mg tablet 1,000 mg PO Q8H PRN Qty: 90 0RF Rx Instructions: Take two tablets up to every 8 hours as needed for pain Trelegy Ellipta 100-62.5-25 mcg blister with device 1 inh INHALATION ONCE Patient Comments: INHALE ONE PUFF BY MOUTH EVERY DAY Discharge Instructions Instructions: COPD Exacerbation, Adult ED Additional Instructions: Keep taking your prednisone. Use your inhalers at home as prescribed. Antibiotic once a day for the next 5 days. Call your primary care doctor to schedule an appointment for within the next 72 hours to followup on your visit here. At that visit discuss your blood pressure which is high here today. Return to the emergency department for new or worsening symptoms including fever, chest pain, or if your breathing worsens and does not improve with home treatment. Referrals: Bradley Carmichael MD [Primary Care Provider] - [facility] General Mode of arrival: ambulatory . Date/Time Provider Initiated Documentation: 09/02/24 04:21 . Limitations to Documentation: no limitations . Information obtained by: patient and old records reviewed (Ed visit 08/31/24) . HPI Narrative: 59yo M with hx COPD, CAD, HTN, DM, prior CVA, presenting for shortness of breath. Reports chronic shortness of breath but has been 'worse lately' (unable to clarify how long this is); seen in this ED two days ago for same. Was prescribed prednisone on that visit which he started this morning just prior to arrival. This morning he woke up very short of breath. No chest pain. No LE edema. Used albuterol inhaler at home without much improvement. States this feels the same as two days ago the last time he came to the emergency department. It is not worse now than it was then. Has some mucousy sputum which is not unusual for him but is perhaps increased in volume. Otherwise in his usual state of health with no fevers, chills, rash, nausea, vomiting, abdominal pain, palpitations, or other concerns. Related Data Home Medications ?Medication ?Instructions ?Recorded ?Confirmed lancets 33 gauge (OneTouch Delica #100 ea 11/05/19 09/02/24 Lancets) acetaminophen 500 mg tablet 1,000 mg (2 x 500 mg) PO Q8H PRN 07/27/22 09/02/24 pain #90 tabs nitroglycerin 0.4 mg sublingual 0.4 mg sublingual Q5-15M PRN chest 08/06/22 09/02/24 tablet pain #60 tabs polyethylene glycol 3350 17 17 g PO BID PRN constipation #119 08/09/22 09/02/24 gram/dose oral powder (Miralax) grams docusate sodium 100 mg capsule 100 mg PO BID #180 caps 08/20/22 09/02/24 (Colace) naloxone 4 mg/actuation nasal spray 4 mg intranasal Q2M PRN opioid 01/02/23 09/02/24 overdose #2 ea blood sugar diagnostic (OneTouch #100 ea 07/06/23 09/02/24 Verio test strips) blood-glucose meter (Oneuch #1 ea 07/06/23 09/02/24 Verio Flex Meter) lancets #100 ea 07/06/23 09/02/24 clopidogrel 75 mg tablet 75 mg PO DAILY 07/12/23 09/02/24 metoprolol succinate 50 mg 50 mg PO DAILY 07/12/23 09/02/24 tablet,extended release 24 hr rosuvastatin 40 mg tablet 40 mg PO DAILY 07/12/23 09/02/24 lisinopril 10 mg tablet 10 mg PO DAILY #90 tabs 10/26/23 09/02/24 omeprazole 40 mg capsule,delayed 40 mg PO BID dyspepsia #180 06/19/24 09/02/24 release tab-caps albuterol sulfate 90 mcg/actuation 2 puff inhalation Q4H PRN 08/20/24 09/02/24 aerosol inhaler (Ventolin HFA) shortness of breath or wheezing #8.5 grams buprenorphine HCl 150 mcg buccal 150 mcg buccal Q12H #60 ea 08/20/24 09/02/24 film oxycodone 10 mg tablet 10 mg PO BID PRN pain #56 tabs 08/20/24 09/02/24 empagliflozin 25 mg tablet 25 mg PO QAM #90 tabs 08/21/24 09/02/24 (Jardiance) budesonide-formoterol HFA 160 2 puff inhalation BID #10.2 grams 08/23/24 09/02/24 mcg-4.5 mcg/actuation aerosol inhaler (Breyna) prednisone 20 mg tablet 40 mg (2 x 20 mg) PO DAILY 4 days 08/31/24 09/02/24 #8 tabs fluticasone fur. 100 mcg-umeclid 1 inh inhalation ONCE 09/02/24 09/02/24 62.5 mcg-vilant 25 mcg inhalat.powder (Trelegy Ellipta) levofloxacin 500 mg tablet 500 mg PO DAILY #4 tabs 09/02/24 Previous Rx's ?Medication ?Instructions ?Recorded lancets 33 gauge ([facility] Delica #100 ea 11/05/19 Lancets) acetaminophen 500 mg tablet 1,000 mg (2 x 500 mg) PO Q8H PRN 07/27/22 pain #90 tabs nitroglycerin 0.4 mg sublingual 0.4 mg sublingual Q5-15M PRN chest 08/06/22 tablet pain #60 tabs polyethylene glycol 3350 17 17 g PO BID PRN constipation #119 08/09/22 gram/dose oral powder (Miralax) grams docusate sodium 100 mg capsule 100 mg PO BID #180 caps 08/20/22 (Colace) naloxone 4 mg/actuation nasal spray 4 mg intranasal Q2M PRN opioid 01/02/23 overdose #2 ea blood sugar [facility] Verio test strips) blood-glucose meter ([facility] 07/06/23 Verio Flex Meter) lancets #100 ea 07/06/23 lisinopril 10 mg tablet 10 mg PO DAILY #90 tabs 10/26/23 omeprazole 40 mg capsule,delayed 40 mg PO BID dyspepsia #180 06/19/24 release tab-caps albuterol sulfate 90 mcg/actuation 2 puff inhalation Q4H PRN 08/20/24 aerosol inhaler (Ventolin HFA) shortness of breath or wheezing #8.5 grams buprenorphine HCl 150 mcg buccal 150 mcg buccal Q12H #60 ea 08/20/24 film oxycodone 10 mg tablet 10 mg PO BID PRN pain #56 tabs 08/20/24 empagliflozin 25 mg tablet 25 mg PO QAM #90 tabs 08/21/24 (Jardiance) budesonide-formoterol HFA 160 2 puff inhalation BID #10.2 grams 08/23/24 mcg-4.5 mcg/actuation aerosol inhaler (Breyna) prednisone 20 mg tablet 40 mg (2 x 20 mg) PO DAILY 4 days 08/31/24 #8 tabs levofloxacin 500 mg tablet 500 mg PO DAILY #4 tabs 09/02/24 Allergies Allergy/AdvReac Type Severity Reaction Status Date / Time Penicillins Allergy Unknown unknown Verified 09/02/24 04:35 fentanyl AdvReac Severe Nausea Verified 09/02/24 04:35 semaglutide (From [employer]) AdvReac Severe Nausea Verified 09/02/24 04:35 General Stated Complaint: RespSymp CHIN: 3 Review of Systems Narrative: see HPI Exam Narrative Exam Narrative: General: Alert, well appearing, well nourished, in no acute distress. Head: Normocephalic, atraumatic Neck: Trachea midline, ?Neck supple. ENT: ?MMM.? Cardiac: ?RRR, no murmurs appreciated Resp: No respiratory distress, no increased WOB. Pronounced diffuse wheezes on auscultation. Abd: ?Soft, non-distended, nontender Extremities: ?No deformities.? No peripheral edema. Neurologic: GCS 15. ? Moves all extremities freely against gravity Course Vital Signs Vital signs: Vital Signs Pulse 73 09/02/24 04:25 Respiratory Rate 17 09/02/24 04:25 Pulse Oximetry 97 09/02/24 04:25 Temperature 36.5 C 09/02/24 04:33 Temperature Source Tympanic 09/02/24 04:33 Pulse 66 09/02/24 04:33 Respiratory Rate 16 09/02/24 04:33 Respiratory Effort Normal 09/02/24 04:38 Respiratory Depth Normal 09/02/24 04:38 Blood Pressure 213/92 H 09/02/24 04:33 Blood Pressure Position Supine 09/02/24 04:25 Pulse Oximetry 92 09/02/24 04:33 Oxygen Delivery Method Room Air 09/02/24 04:33 Oxygen Flow Rate 0 09/02/24 04:25 Pain Level 0 09/02/24 04:33 Medical Decision Making 59yo M with hx COPD, CAD, HTN, DM, prior CVA, presenting for shortness of breath. Seen in this ED two days ago for same and he reports his symptoms are identical this morning. No chest pain at any point. ED visit 08/31/24 reviewed; workup with reassuring EKG, labs, and CXR with no indication of pneumonia. Symptoms improved after steroid and breathing treatments and he was discharged home on prednisone. He is hypertensive, vital signs otherwise reassuring. Well appearing on exam with no respiratory distress. Marked diffuse wheezes on auscultation. Most consistent with COPD exacerbation. No fevers and no diminished lung sounds, unlikely pneumonia; would not repeat CXR today. Will treat with duonebs and give his home antihypertensives here. Unlikely ACS but does have risk factors and so will get repeat EKG and bloodwork. Not suggestive of sepsis, pulmonary embolism, aspiration, aortic dissection, sympathetic crashing acute pulmonary edema; no indication for CT imaging or emergent BP reduction. EKG NSR, appropriate intervals, no ST segment or T wave abnormalities to suggest occlusive MD. POC covid/flu negative. Labs reviewed as below, CBC reassuring with mild leukocytosis (is increased from 2 days ago) and no anemia, CMP with no actionable abnormalities, Mg normal, BNP mildly elevated and not suggestive of acute heart failure, troponin normal with one hour repeat stable (would not further pursue ACS) On reassessment patient's lungs much clearer, still slight expiratory wheeze. Reports his breathing feels better. Repeat BP improved. Has not been using his Breyna at home, some difficulty at pharmacy d/t insurance. Will do dose of symbicort here and send pt home with symbicort as well as 5 day course of levofloxacin for COPD exacerbation (penicillin allergy). Discharged home; discharge instructions and return precautions were reviewed with patient who verbalized understanding. All questions were answered and he is in agreement with the plan. Quality:SDOH Health Related Social Needs: No Data to Display PFSH All Active Problems (Updated 09/02/24 @ 06:31 by Kristal Butts MD) Asthma exacerbation in COPD (Acute) Influenza A (Acute) Osteoarthritis of right knee (Acute) COPD (chronic obstructive pulmonary disease) (Chronic) Nicotine dependence (Acute) ASCVD (arteriosclerotic cardiovascular disease) (Acute) Chronic cough (Acute) Right knee pain (Acute) History of total left knee replacement (Acute 07/27/22) Post-COVID chronic dyspnea (Acute) Difficulty breathing (Acute) Left knee DJD (Acute) Controlled diabetes mellitus (Acute) Trochanteric bursitis of left hip (Acute) s/p open debridement/excision of left trochanteric bursa and iliotibial band lengthening with excision of heterotopic ossification from left hip with repair of abductor musculature 12/09/2021 DEPO MEDROL 07/26/23 Postoperative heterotopic ossification (Acute) s/p open debridement/excision of left trochanteric bursa and iliotibial band lengthening with excision of heterotopic ossification from left hip with repair of abductor musculature 12/09/2021 Obesity (Chronic) he needs to quit drinking soda Chronic pain (Acute 09/15/16) Gout (Acute 04/19/14) GERD (gastroesophageal reflux disease) (Chronic 11/25/14) Smoker (Chronic 06/05/13) Acute CVA (cerebrovascular accident) (Acute) [id number]-hx-ievmwbnix syndrome (Acute) Non-compliance (Chronic) Pain in left hip (Acute) BCC (basal cell carcinoma), face (Acute ~11/12/19) 11/12/19 [facility] (LEFT CHEEK) Viral illness (Acute) Rule out coronavirus 19 Lesion of right [place] kidney (Acute) Skin lesion (Acute) Abdominal pain (Acute) Diabetes mellitus (Chronic) Hypertension (Chronic) Well adult (Chronic) health compromised by worsening obesity History of shoulder surgery (Acute) Status post carpal tunnel release (Acute) Dental abscess (Acute 05/31/17) Facial cellulitis (Acute 05/31/17) Surgical History S/P cardiac catheterization 07/2022 [facility] History of percutaneous coronary intervention 07/[address] [facility] Closed comminuted intra-articular fracture of distal end of femur S/P ORIF: 07/05/2021 shoulder repair left Open Carpal Tunnel release b/l Fracture, Open Treatment 10/30/14 [facility]; ORIF L HIP REDUCTION AND ORIF L FEMUR FX Family History Mother No problems noted. Father Diabetes Essential hypertension Heart disease Hyperlipidemia Stroke Cancer Sister Asthma Maternal Grandfather Alcohol abuse Depression Paternal Grandfather , 90 No problems noted. Maternal Grandmother , 96 Asthma Diabetes Heart disease Paternal Grandmother , 78 Diabetes Essential hypertension Stroke Daughter Substance abuse Essential hypertension Depression Social History Smoking/Tobacco Use Status: Current every day Tobacco Type: cigarettes Tobacco: How many years used: 40 Quit status: considering quitting Second Hand Exposure: Yes Smoking risk assessment performed?: Yes Alcohol Intake: current Alcohol Intake frequency: holidays/special occasions only Drug use: Daily Substance use type: marijuana Caregiver/Support person: No Household members: significant other Housing: other Details: mobile home Communication Needs: None Pets and animals: Yes Pets and animals: dog(s) Sexually active: Yes Do you think of yourself as: straight/heterosexual Current gender identity: male What is your relationship status?: living with partner How often do you talk on the phone with friends or family?: three or more times per week How often do you get together with friends or relatives?: once per week How often do you attend muslim or christianity services?: decline to answer Do you belong to any clubs or organized social groups?: decline to answer Panel score (0-1 are the most socially isolated patients): 2 What type of physical activity do you participate in: decline to answer Duration: < 15 minutes/day Geovanna/Catholic: None Special geovanna needs: No Seatbelt use: always Helmet use: Yes Helmet use: sometimes Drive intox or ride w/intox 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
[2024-09-02] MEDS: Albuterol/Ipratropium 3 ML UPD VIAL UPD ×2 (04:59)
[2024-09-02] MEDS: Metoprolol CR 50 MG TABCR PO (05:01)
[2024-09-02] MEDS: Lisinopril 10 MG TAB PO (05:01)
[2024-09-02 05:04] LABS: Abs Immature Grans 0.04 10^3/uL (0.0-0.06); Absolute Basophil Count 0.06 10^3/uL (0.0-0.2); Absolute Eosinophil Count 0.01 10^3/uL (0.0-0.7); Absolute Lymphocyte Count 3.68 10^3/uL (1.2-3.4); Absolute Monocyte Count 0.66 10^3/uL (0.1-0.8); Absolute Neutrophil Count 6.87 10^3/uL (1.2-6.7); Basophils % 0.5 %; Eosinophils % 0.1 %; HCT 43.1 % (40.0-50.0); Immature Grans % 0.4 %; Lymphocytes % 32.5 %; MCH 29.2 pg (27.0-33.0); MCHC 32.5 % (32.0-36.0); MCV 90 fL (80-95); MPV 9.9 fL (8.0-11.0); Monocytes % 5.8 %; Neutrophils % 60.7 %; Platelet Count 237 10^3/uL (130-400); RBC 4.79 10^6/uL (4.36-5.78); RDW 15.6 % (11.8-14.1); RDW-SD 51.7 fL; WBC 11.32 10^3/uL (4.4-10.8)
[2024-09-02 05:18] LABS: Troponin I 11 ng/L (<or=76)
[2024-09-02 05:27] LABS: ALT 13 U/L (16-63); AST 7 U/L (15-37); Albumin 3.2 g/dL (3.4-5.0); Alkaline Phosphatase 77 U/L (46-116); Anion Gap 6.2 mmol/L (3-11); BUN 21 mg/dL (7-18); Bilirubin, Total 0.3 mg/dL (0.2-1.0); CO2 31.8 mmol/L (21.0-32.0); CREATININE 1.2 mg/dL (0.70-1.30); Calcium 9.1 mg/dL (8.5-10.1); Chloride 106 mmol/L (98-107); Glucose 180 mg/dL (74-106); NT-proBNP 630 pg/mL (<300); Potassium 3.7 mmol/L (3.5-5.1); Sodium 144 mmol/L (136-145); Total Protein 7.2 g/dL (6.4-8.2)
[2024-09-02 06:23] LABS: Troponin I 10 ng/L (<or=76)
[2024-09-02] MEDS: levoFLOXacin 500 MG TAB PO (06:51)
[2024-09-02] MEDS: Budesonide/Formoterol 160/4.5 6 GM 60 PUFF INH IH (06:51)
== END 2024-09-02 06:57 | disposition home or self-care (01) ==
PROVIDERS: Emergency Provider Student in an Organized Health Care Education/Training Program; PCP Family Medicine
DX: J44.1 Chronic obstructive pulmonary disease with (acute) exacerbation (principal); F17.210 Nicotine dependence, cigarettes, uncomplicated
CPT/HCPCS: 99284 ×2; 94640; 36415; 80053; 93005; 83735; 83880; 84484; 85025; 93010; J7620

== ENCOUNTER 2024-09-13 01:29 | Outpatient (CLI) | payer MEDICARE, SELFPAY ==
[2024-09-13] MEDS: Inhaler, Assist Device 1 EACH MC (14:21)
[2024-09-13] MEDS: Levalbuterol HFA 15 GM INH 4 PUFF IH (14:22)
--- NOTE | 2024-09-17 13:36 | W.PFT ---
Date of service: 09/13/24 Time of Service: 13:03 Pulmonary Function Test Result Indications: COPD Interpretation Spirometry: There is moderate airflow limitation. No significant bronchodilator response, Lung Volumes: There is air trapping Diffusion Capacity: Decreased diffusion Airway Pressure: Normal airways resistance Impression Moderate airflow obstruction with air trapping and a decreased diffusion Clinical Correlation therefore is recommended.
== END 2024-09-13 01:30 | disposition home or self-care (01) ==
LOC: RT 01:29
PROVIDERS: PCP Family Medicine; Visit Provider Student in an Organized Health Care Education/Training Program
DX: J44.89 Other specified chronic obstructive pulmonary disease (principal)
CPT/HCPCS: 94060; 94726; 94729

== ENCOUNTER 2024-11-15 10:20 | Outpatient (REF) | payer MEDICARE, SELFPAY | END 2024-11-15 10:21 | disposition home or self-care (01) | LOC: LBN 10:20 | PROVIDERS: PCP Family Medicine; Visit Provider Family Medicine | DX: G89.29 Other chronic pain (principal); R10.31 Right lower quadrant pain; Z79.899 Other long term (current) drug therapy | CPT/HCPCS: 80361; 80362; 80365 ==

== ENCOUNTER 2025-02-21 09:41 | Outpatient (REF) | payer MEDICARE, SELFPAY ==
[2025-03-01 11:33] LABS: Noroxycodone-by LC-MS/MS Negative ng/mL (Cutoff: 25); Noroxymorphone-by LC-MS/MS Negative ng/mL (Cutoff: 25); Oxycodone-by LC-MS/MS Negative ng/mL (Cutoff: 25); Oxymorphone-by LC-MS/MS Negative ng/mL (Cutoff: 25)
== END 2025-02-21 09:42 | disposition home or self-care (01) ==
LOC: LBN 09:41
PROVIDERS: PCP Family Medicine; Visit Provider Family Medicine
DX: F11.20 Opioid dependence, uncomplicated (principal)
CPT/HCPCS: 80365